=== PATIENT | male | born 1980 | race Caucasian/White ===

== ENCOUNTER 2023-03-11 00:32 | Outpatient (CLI) | payer BC, SELFPAY | END 2023-03-11 00:33 | disposition home or self-care (01) | LOC: AMB 03-14 06:26 | PROVIDERS: PCP Internal Medicine; Visit Provider Family Medicine | DX: M54.9 Dorsalgia, unspecified (principal) | CPT/HCPCS: A0425; A0427 ==

== ENCOUNTER 2023-03-11 00:57 | Emergency (ER) | payer BC, SELFPAY ==
[2023-03-11 01:03] VITALS: BP 127/83; PULSE 79; RESP 16; TEMP 37.3; O2SAT 100; BMI 23.1
--- NOTE | 2023-03-11 01:16 | ED.GENADULT ---
HPI - General Adult General Chief complaint: Unspecified Complaint, Adult Stated complaint: body aches Time Seen by Provider: 03/11/23 01:15 History of Present Illness HPI narrative: pt has colitis, gets remicade infusions q6wks . states around week 5 he starts to get joint pain and a another infusion resolves it. pt states next dose is next wednesday and has severe joint pain in shoulders, states pain in all other joints as well. struggles to lift arms up and neck pain. arms tingle now as well. 42-year-old man presenting to the emergency department with complaints of pain in numerous locations. He is having severe pain now in shoulders and other joints. Says when he woke could not even lift his arms as if paralyzed. Now just has a great deal of pain numerous areas. Hands tingle as well. No fever. No specific joint swelling. Does have a history of inflammatory bowel disease/colitis with history of Remicade infusions. Would anticipate another infusion about a week. Usually about week 5 starts to get pain like this. This is worse than usual. He is wondering if he is reacting to his medications. Related Data Home Medications Medication Instructions Recorded Confirmed balsalazide 750 mg capsule mg PO 11/06/22 03/29/23 infliximab 100 mg intravenous IV 11/06/22 03/29/23 solution (Remicade) Previous Rx's Medication Instructions Recorded gabapentin 300 mg capsule 300 mg PO BID PRN pain #30 caps 03/12/23 oxycodone-acetaminophen 5 mg-325 1 tab PO Q6H PRN pain #30 tabs 03/12/23 mg tablet (Percocet) clonazepam 1 mg tablet 1 mg PO QDAY PRN anxiety #10 tabs 03/29/23 prednisone 20 mg tablet 20 mg PO BID 5 days #10 tabs 03/29/23 Allergies Allergy/AdvReac Type Severity Reaction Status Date / Time venlafaxine Allergy Unknown Unknown Verified 03/26/23 10:41 Review of Systems Status of ROS: Reports: 6 or more systems reviewed and unremarkable except as noted in History and below [facility] Medical History Anxiety ?F41.9 - Anxiety disorder, unspecified (ICD-10) Inflammatory bowel disease ?K52.9 - Noninfective gastroenteritis and colitis, unspecified (ICD-10) Social History Smoking Status: Never smoker How often do you have a drink containing alcohol: never AUDIT-C Alcohol total score: 0 Non-prescribed substance use: denies use Little interest or pleasure in doing things: not at all Feeling down, depressed, or hopeless: not at all Exam Narrative: Exam Narrative: Is pleasant. Seems rather distressed. Mildly labored in breathing. Anxious. Skin is warm and dry. No discrete areas of erythema or evidence of cellulitis are noted. Subjective tingling appreciated to touch as noted in the hands and forearms. He is able to move all extremities though causes pain. Lungs are clear. Heart is in a regular rate and rhythm. Abdomen is flat soft. Const: Vital Signs, click to edit/add: Vital Signs - 24 hr 03/11/23 01:03 03/11/23 03:19 Temperature 99.2 F Pulse Rate [Left P ulse Oximeter] 79 77 Respiratory Rate 16 16 Blood Pressure [Ri ght Upper Arm] 127/83 125/81 Pulse Oximetry 100 99 Oxygen Delivery Me thod Room Air Room Air Documenting provider has reviewed patient's vital signs: yes Course Vital Signs Vital signs: Initial Vital Signs Temperature 99.2 F 03/11/23 01:03 Temperature Source Temporal Artery Scan 03/11/23 01:03 Pulse Rate 79 03/11/23 01:03 Respiratory Rate 16 03/11/23 01:03 Blood Pressure 127/83 03/11/23 01:03 Blood Pressure Mean 97 03/11/23 01:03 Blood Pressure Position Sitting 03/11/23 01:03 Pulse Oximetry 100 03/11/23 01:03 Oxygen Delivery Method Room Air 03/11/23 01:03 Vital Signs Temperature 99.2 F 03/11/23 01:03 Pulse Rate 79 03/11/23 01:03 Respiratory Rate 16 03/11/23 01:03 Blood Pressure 127/83 03/11/23 01:03 Pulse Oximetry 100 03/11/23 01:03 Oxygen Delivery Method Room Air 03/11/23 01:03 Temperature 99.2 F 03/11/23 01:03 Pulse Rate 77 03/11/23 03:19 Respiratory Rate 16 03/11/23 03:19 Blood Pressure 125/81 03/11/23 03:19 Pulse Oximetry 99 03/11/23 03:19 Oxygen Delivery Method Room Air 03/11/23 03:19 Medical Decision Making MDM Narrative Medical decision making narrative: Will attempt to treat pain. Certainly this could be breakthrough polyarthralgia. It sounds as though there is some exploration into joint involvement of inflammatory disease. This is not an isolated event. Just as noted worse than usual. It is possible there is an infectious etiology. Will check labs for red flags. I have not ordered an ESR as I do not anticipate this being a particularly long visit and perhaps further serology testing would be helpful in certainly not any time soon from this emergency department. Initiated on IV fluid, ketorolac in 2 tabs of [place]. This apparently did nothing to relieve pain. Further given a injection of Dilaudid. On reassessment still with minimal relief. I do think that anxiety is playing a role here and was given 0.5 mg of lorazepam. I would say overall improved though still complaining of pain. I do not feel there is really anything more to accomplish here in the emergency department. Labs are reassuring. CRP is normal. Medical Records Medical records reviewed: Yes I reviewed the patient's medical records Lab Data Lab results reviewed: Yes I reviewed the patient's lab results Labs: Lab Results 03/11/23 Range/Units 01:37 WBC 7.33 (4.50-11.00) K/uL RBC 4.63 (4.30-5.90) m/uL Hgb 14.1 (13.5-17.5) gm/dL Hct 41.4 (37.0-53.0) % MCV 89 (80-100) fL MCH 31 (26-34) pg MCHC 34 (32-36) gm/dL RDW Coeff of Larry 12.2 (11.5-15.5) % Plt Count 250 (140-440) K/uL Neut % (Auto) 62.2 (42.0-72.0) % Lymph % (Auto) 28.9 (20-44) % Harvey % (Auto) 6.5 (0.0-11.0) % Eos % (Auto) 2.0 (0.0-7.0) % Baso % (Auto) 0.3 (0.0-3.0) % Neut # (Auto) 4.55 (1.7-7.0) K/uL Lymph # (Auto) 2.12 (0.90-2.90) K/uL Harvey # (Auto) 0.50 (0.00-0.90) K/UL Eos # (Auto) 0.15 (0.00-0.50) K/uL Baso # (Auto) 0.02 (0.00-0.30) K/uL Abs Immat Gran (auto) 0.01 (0.00-0.30) K/uL Imm/Tot Granulo (auto) 0.1 % Sodium 140 (135-149) mmol/L Potassium 3.5 L (3.6-5.1) mmol/L Chloride 107 (96-114) mmol/L Carbon Dioxide 26 (20-32) mmol/L BUN 18 (5-24) mg/dL Creatinine 0.7 (0.5-1.5) mg/dL Estimated Creat Clear 151.47 Estimated GFR 119 ml/min Glucose 103 (60-115) mg/dL Calcium 8.8 (8.4-10.6) mg/dL C-Reactive Protein 0.8 (0.5-1.0) mg/dL Discharge Plan Discharge Clinical Impression: Myalgia, Polyarthralgia, Medication reaction Patient Disposition: Home w/ Parent or Adult Condition: Improved Additional Instructions: I do not know for sure that this is a reaction to your medication but certainly suspicious. I would not list this as an allergy necessarily. Please discuss with your barker peeler and manager of application development. Otherwise be seen for uncontrolled pain, fever, repeated vomiting. If needed Percocet from [facility]. Prescriptions: No Action balsalazide 750 mg capsule PO infliximab [Remicade] 100 mg recon soln IV prednisone 20 mg tablet 20 mg PO BID 5 Days Qty: 10 0RF clonazepam 1 mg tablet 1 mg PO QDAY PRN (Reason: anxiety) Qty: 10 0RF oxycodone-acetaminophen [Percocet] 5-325 mg tablet 1 tab PO Q6H PRN (Reason: pain) Qty: 30 0RF gabapentin 300 mg capsule 300 mg PO BID PRN (Reason: pain) Qty: 30 0RF Follow Up/Referrals: Ben Koch MD [Primary Care Provider] - Stand Alone Forms: [facility] Info Instructions
[2023-03-11] MEDS: KETOROLAC 30 MG/ML inj IVP (01:33)
[2023-03-11] MEDS: HYDROCODONE-ACETAMIN 5-325 MG 1 TAB 2 TAB PO (01:33)
[2023-03-11] MEDS: 0.9 % SODIUM CHLORIDE 1000 ml 1,000 ML IV (01:34)
[2023-03-11 01:46] LABS: Basophils Absolute Auto 0.02 K/uL (0.00-0.30); Basophils Percent Auto 0.3 % (0.0-3.0); Eosinophils Absolute Auto 0.15 K/uL (0.00-0.50); Hematocrit 41.4 % (37.0-53.0); Hemoglobin* 14.1 gm/dL (13.5-17.5); Immature Granulocytes Abs Auto 0.01 K/uL (0.00-0.30); Immature Granulocytes Pct Auto 0.1 %; Lymphocytes Absolute Auto 2.12 K/uL (0.90-2.90); Lymphocytes Percent Auto 28.9 % (20-44); Mean Corpuscular HGB Conc 34 gm/dL (32-36); Mean Corpuscular Hemoglobin 31 pg (26-34); Mean Corpuscular Volume 89 fL (80-100); Monocytes Percent Auto 6.5 % (0.0-11.0); Neutrophils Absolute Auto 4.55 K/uL (1.7-7.0); Neutrophils Percent Auto 62.2 % (42.0-72.0); Platelet Count* 250 K/uL (140-440); RDW Coefficient of Variation % 12.2 % (11.5-15.5); Red Blood Count 4.63 m/uL (4.30-5.90); White Blood Count* 7.33 K/uL (4.50-11.00)
[2023-03-11 01:51] LABS: Slide Review Reflex No
[2023-03-11 02:06] LABS: Blood Urea Nitrogen* 18 mg/dL (5-24); Calcium* 8.8 mg/dL (8.4-10.6); Carbon Dioxide* 26 mmol/L (20-32); Chloride* 107 mmol/L (96-114); Creatinine* 0.7 mg/dL (0.5-1.5); Est. Creatinine Clearance* 151.47; Estimated Glomerular Filt Rate 119 ml/min; Glucose* 103 mg/dL (60-115); Potassium* 3.5 mmol/L (3.6-5.1); Sodium* 140 mmol/L (135-149)
[2023-03-11 02:07] LABS: C Reactive Protein* 0.8 mg/dL (0.5-1.0)
[2023-03-11] MEDS: HYDROmorphone 0.5 mg/0.5 ml inj 1 MG IVP (02:36)
[2023-03-11] MEDS: LORazepam 2 MG/ML inj 0.5 MG IVP (03:05)
[2023-03-11 03:19] VITALS: BP 125/81; PULSE 77; RESP 16; O2SAT 99
== END 2023-03-11 04:18 | disposition home or self-care (01) ==
PROVIDERS: Emergency Provider Family Medicine; PCP Internal Medicine
DX: M79.10 Myalgia, unspecified site (principal); M25.50 Pain in unspecified joint; T50.905A Adverse effect of unspecified drugs, medicaments and biological substances, initial encounter
CPT/HCPCS: 36415; 80048; 85025; 86140; 96361; 96374; 96375; 99284; A9270; J1170; J1885; J2060; J7030

== ENCOUNTER 2023-03-29 15:30 | Outpatient (CLI) | payer BC, SELFPAY | END 2023-03-29 15:31 | disposition home or self-care (01) | PROVIDERS: PCP Internal Medicine; Visit Provider Internal Medicine | DX: K52.9 Noninfective gastroenteritis and colitis, unspecified (principal); N13.2 Hydronephrosis with renal and ureteral calculous obstruction; F41.9 Anxiety disorder, unspecified | CPT/HCPCS: 86039; 86140; 86812 ==

== ENCOUNTER 2024-04-05 15:22 | Outpatient (CLI) | payer BC, MEDICAID, SELFPAY ==
--- OUTSIDE RECORDS SUMMARY | 2024-04-06 09:15 | XMS_ITS | Encounter Summary ---
Author Organization [facility] Address [address] [place] [address]. [place] [address] Care Team Providers Care Reed Or Wind Instrument Repairer Name Role Phone Ben Koch MD Primary Care Provider Xavier Kaur MD Unavailable [phone] Savage Ma MD Unavailable [phone] Encounter Details Date Type Department Care Team (Late st Contact Info) Description 07/05/2021 Documentation Only INTERFACED REPORT Unknown, Provider Social History Tobacco Use Types Packs/Day Years Used Date Smoking Tobacco: Never Assessed Sex and Gender Information Value Date Recorded Sex Assigned at Not on file Gender Identity Not on file Sexual Orientation Not on file COVID-19 Exposure Response Date Recorded In the last month, have you been in contact with someone who was confirmed or suspected to have Coronavirus / COVID-19? No / Unsure 07/05/2021 10:34 AM SOLID [employer] FACILITY SUPERVISOR documented as of this encounter Plan of Treatment Not on file documented as of this encounter Visit Diagnoses Not on filedocumented in this encounter Care Teams Reed Or Wind Instrument Repairer Relationship Specialty Start Date End Date Ben Koch MD [facility] [address] [place] [address] PCP - General Emergency Medicine 02/17/21 Xavier Kaur MD [facility] [address] [facility] [place] [address] Gastroenterology 02/17/21 Savage Ma MD [id number] [place] [address] 02/17/21 documented as of this encounter
--- OUTSIDE RECORDS SUMMARY | 2024-04-06 09:15 | XMS_ITS | Clinical Summary ---
Author Organization [employer] [facility] Address [place], [place] [address] Care Team Providers Care Supervisor Receiving And Processing Name Role Phone Ben Koch MD Primary Care Provider Allergies Active Allergy Reactions Criticality Noted Date Comments Venlafaxine Analogues 12/13/2006 intolerance dizziness 10/25 Medications Medication Sig Dispensed Refills Start Date End Date Status acetaminophen (TYLENOL) 325 mg tablet Take 1-2 tablets by mouth every 4 hours if needed (For mild pain.). Max acetaminophen dose: 4000mg in 24 hrs. 0 03/25/2018 Active balsalazide (COLAZAL) 750 mg capsule Take by mouth 2 times daily. 3750 mg (5 caps) in the AM, 3000 mg (4 caps) in the PM Active inFLIXimab (Remicade) 100 mg injection Inject 5 mg/kg intravenous every 4 weeks. 07/12/2023 Active clonazePAM (KLONOPIN) 1 mg tablet Take 1 mg by mouth one time if needed for Anxiety. 07/02/2023 Active gabapentin (NEURONTIN) 300 mg capsule Take 300 mg by mouth 2 times daily if needed (pain). 03/12/2023 Active oxyCODONE-acetamin ophen (PERCOCET) 5-325 mg per tablet Take 1 Tablet by mouth every 4 hours if needed for Pain. 10/18/2020 Active predniSONE (DELTASONE) 20 mg tablet Take 20 mg by mouth two times daily with meals. PRN 05/03/2023 Active flecainide (TAMBOCOR) 50 mg tabletIndications: Paroxysmal atrial fibrillation (HC) Take 1 Tablet (50 mg) by mouth every 12 hours. 180 Tablet 2 12/07/2023 Active Active Problems Problem Noted Date Diagnosed Date Hydronephrosis with urinary obstruction due to ureteral calculus 10/24/2020 ADHD (attention deficit hype ractivity disorder), combined type 10/30/2011 Adjustment disorder with depressed mood 10/29/19 12 Seborrheic dermatitis 12/17/2010 PAROXYSMAL ATRIAL FIBRILLATION Overview: S/P ablation by dr toussaint 12/27 S/P repeat atrial fib ablation 09/14/2008 Anxiety state, unspecified Dysthymic disorder Allergic rhinitis, cause unspecified Immunizations Name Administration Dates Next Due Hepatitis B (Peds) 06/20/1999 Influenza, IIV3 (Age 6-35 mos) 09/15/2008 MMR 11/21/1993 Td (Age >=7 Years) 08/07/2005 Tdap 04/30/2015 Family History Medical History Relation Name Comments Cancer Maternal Grandfather Diabetes Mother Other Mother Crohn's disease Genetic Other mother, materna l GM and maternal GGM all with atrial fib; step-dad with ICD; Relation Name Status Comments Maternal Grandfather Mother Other Social History Tobacco Use Types Packs/Day Years Used Date Smoking Tobacco: Never Smokeless Tobacco: Never Tobacco Cessation:Counseling Given: Yes Comments:Never used Alcohol Use Standard Drinks/Week Comments No 0 (1 standard drink = 0.6 oz pur e alcohol) Social Connections Answer Date Recorded Frequency of Communication with Friends and Fami ly Not on file 08/02/2023 Sex and Gender Information Value Date Recorded Sex Assigned at Not on file Gender Identity Not on file Sexual Orientation Not on file Obstetrics History Last Filed Vital Signs Vital Sign Reading Time Taken Comments Blood Pressure 104/72 08/02/2023 9:32 AM INTEGRATION DIRECTOR Pulse 78 08/02/2023 9:32 AM INTEGRATION DIRECTOR Temperature 36.3 ??C (97.3 ??F) 11/19/2020 1:39 PM CD T Respiratory Rate 16 11/19/2020 1:39 PM CDT Oxygen Saturation 100% 08/02/2023 9:32 AM INTEGRATION DIRECTOR Inhaled Oxygen Concentration - - Weight 77.5 kg (170 lb 14.4 oz) 08/02/2023 9:32 AM INTEGRATION DIRECTOR Height 182.9 cm (6') 08/02/2023 9:32 AM INTEGRATION DIRECTOR Body Mass Index 23.18 08/02/2023 9:32 AM INTEGRATION DIRECTOR Plan of Treatment Health Maintenance Due Date Last Done Comments COVID-19 vaccine series (#1) 1986 Depression screening for age 12+ 1993 HIV for age 15-65 1996 Hepatitis C screening for ag e 18-79 1999 Lipids for age 35-44 2016 05/30/2003, 05/30/2003 Influenza for age 9-49 04/23/2024 BMI (ht and wt on same day) for age 18+ 08/02/2024 08/02/2023, 03/08/2018 Tetanus booster 04/30/2025 04/30/2015, 08/07/2005 Tdap Completed 04/30/2015 Pneumococcal series for age 6-64 Aged Out No longer eligible b ased on patient's age to complete this topic Medical Devices Implanted Type Area Supervisor Accounting Clerks Device Identifier Shelf Expiration Date Model / Serial / Lot Stent Uret [id number] Contour - [id number] Implanted:Qty: 1 on 10/24/2020 by Gricelda Henning MD at [facility] Left: [facility] [facility] [id number] / / [id number] Procedures Procedure Name Priority Date/Time Associated Diagnosis Comments CHOLESTEROL,TOTAL Routine 05/30/2003 10: 27 AM CDT from Last 3 Months or Most Recently Relevant to Health Maintenance Results * CHOLESTEROL,TOTAL (05/30/2003 10:27 AM CDT) CHOLESTEROL,TOT AL 162 <200 mg/dL 05/30/2003 10:2 7 AM CDT Narrative 02/19/2004 1:39 PM CDT Ordered by an unspecified provider. Other Clinical Staff CHEMISTRY from Last 3 Months or Most Recently Relevant to Health Maintenance Advance Directives * Full Code (Latest Code Status on File) Date Activated Date Inactivated Comments 11/19/2020 8:51 AM 11/19/2020 5:46 PM Question Answer Comments Code Status Discussion: Not Discussed * Full Code Date Activated Date Inactivated Comments 10/24/2020 11:56 AM 10/25/2020 3:36 PM Question Answer Comments Code Status Discussion: Discussed * Full Code Date Activated Date Inactivated Comments 03/25/2018 3:16 PM 03/26/2018 2:39 PM * Full Code Date Activated Date Inactivated Comments 10/28/2011 3:19 PM 10/30/2011 2:16 PM * Full Code Date Activated Date Inactivated Comments 09/14/2008 6:04 AM 09/15/2008 1:28 PM Care Teams Supervisor Receiving And Processing Relationship Specialty Start Date End Date Ben Koch MD [address] [place] [address] PCP - General Internal Medicine 03/09/18
--- OUTSIDE RECORDS SUMMARY | 2024-04-06 09:15 | XMS_ITS | Referral Summary ---
Author Organization [facility] Address [address] [place] [id number] Care Team Providers Care Twisting Department End Finder Name Role Phone Ben Koch MD Primary Care Provider Xavier Kaur MD Unavailable [phone] Savage Ma MD Unavailable [phone] Allergies No known active allergies Medications Medication Sig Dispensed Refills Start Date End Date Status gabapentin (NEURONTIN) 100 MG capsule Take 1-3 capsules (100-300 mg) by mouth 3 times daily as needed for neuropathic pain Begin with 100mg po up three times daily, can titrate up by 100mg per dose if no response after three days of dosing up to 300mg po three times daily as needed 90 capsule 07/05/2021 Active Social History Tobacco Use Types Packs/Day Years Used Date Smoking Tobacco: Never Assessed Adolescent Education Answer Date Record ed Getting School Help Needed Not on file 05/15 Sex and Gender Information Value Date Recorded Sex Assigned at Not on file Gender Identity Not on file Sexual Orientation Not on file Last Filed Vital Signs Vital Sign Reading Time Taken Comments Blood Pressure 127/86 07/05/2021 1:10 PM SUPERVISOR DITCHING Pulse 66 07/05/2021 11:40 AM SUPERVISOR DITCHING Temperature 36.1 ??C (97 ??F) 07/05/2021 10:45 AM SUPERVISOR DITCHING Respiratory Rate 18 07/05/2021 10:45 AM SUPERVISOR DITCHING Oxygen Saturation 98% 07/05/2021 1:40 PM SUPERVISOR DITCHING Inhaled Oxygen Concentration - - Weight - - Height - - Body Mass Index - - Plan of Treatment Not on file Procedures Procedure Name Priority Date/Time Associated Diagnosis Comments BASIC METABOLIC PANEL STAT 07/05/2021 11:33 AM SUPERVISOR DITCHING from Last 3 Months or Most Recently Relevant to Health Maintenance Results * Basic metabolic panel (07/05/2021 11:33 AM SUPERVISOR DITCHING) Sodium 139 133 - 144 mmol/L 07/05/2021 12:14 PM [facility] Potassium 4.4 3.4 - 5.3 mmol/L 07/05/2021 12:14 PM [facility] Comment:Specimen slightly he molyzed, potassium may be falsely elevated. Chloride 108 94 - 109 mmol/L 07/05/2021 12:14 PM [facility] Carbon Dioxide (CO2) 27 20 - 32 mmol/L 07/05/2021 12:14 PM [facility] Anion Gap 4 3 - 14 mmol/L 07/05/2021 12:14 PM [facility] Urea Nitrogen 13 7 - 30 mg/dL 07/05/2021 12:14 PM [facility] Creatinine 0.89 0.66 - 1.25 mg/dL 07/05/2021 12:14 PM [facility] Calcium 8.7 8.5 - 10.1 mg/dL 07/05/2021 12:14 PM [facility] Glucose 97 70 - 99 mg/dL 07/05/2021 12:14 PM [facility] GFR Estimate >90 >60 mL/min/1.7 3m2 07/05/2021 12:14 PM [facility] Comment:As of March 02, 2021, eGFR is calculated by the CKD-EPI creatinine equation, without race adjustment. eGFR can be influenced by muscle mass, exercise, and diet. The reported eGFR is an estimation only and is only applicable if the renal function is stable. Blood STRUCTURE OF RIGHT UPPER LIMB / Unknown Venipuncture / Unknown 07/05/2021 11:33 AM SUPERVISOR DITCHING 07/05/2021 11:52 AM SUPERVISOR DITCHING Kenzie Mccracken MD LAB - BLOOD KOKI DOMÍNGUEZ [facility] Organization Address City/State/ZIP Co de Phone Number LABORATORY [facility] [address] Lab (1st floor, no room number) [place] [address], [facility] [phone] from Last 3 Months or Most Recently Relevant to Health Maintenance Care Teams Twisting Department End Finder Relationship Specialty Start Date End Date Ben Koch MD [facility] [address] [place] [address] PCP - General Emergency Medicine 02/17/21 Xavier Kaur MD [facility] [address] [facility] [place] [address] Gastroenterology 02/17/21 Savage Ma MD [address] [facility] [address] [place] [address] 02/17/21
--- OUTSIDE RECORDS SUMMARY | 2024-04-06 09:15 | XMS_ITS | Clinical Summary ---
Author Organization [facility] Address [address] [place] [address] Care Team Providers Care Diabetes Manager Name Role Phone Needs Pcp, Assignment Primary Care Provider Source Comments You are receiving this document as you are listed as the primary care provider,follow-up provider, or the patient has been referred to you for consultation.This is in compliance with the Medicare andMedicaid EHR Incentive Program,which states Providers who transition their patient to another setting of careor provider of care or refers their patient to another provider of care shouldprovide summary care record for each transition of care or referral. [facility] Allergies Active Allergy Reactions Criticality Noted Date Comments Venlafaxine Rash 07/06/2023 Medications Medication Sig Dispensed Refills Start Date End Date Status balsalazide (COLAZAL) 750 MG capsule Take 9 Capsules (6,750 mg) by mouth daily. Pt takes 5 capsules Qmorning and 4 capsules QHS Active clonazePAM (KLONOPIN) 1 MG tablet Take 1 Tablet (1 mg) by mouth daily as needed. 07/02/2023 Active gabapentin (NEURONTIN) 300 MG capsule Take 1 Capsule (300 mg) by mouth two times daily as needed. 03/12/2023 Active inFLIXimab (REMICADE) injection Active Active Problems Problem Noted Date Diagnosed Date Afib 07/06/2023 Overview (07/06/2023): S/P ablation by dr toussaint 12/27 S/P repeat atrial fib ablation 09/14/2008 Anxiety state 07/06/2023 Allergic rhinitis 07/06/2023 Dysthymic disorder 07/06/2023 Insomnia 07/06/2023 Joint pain 07/06/2023 Ulcerative colitis 07/06/2023 Inflammatory arthritis, osteoarthritis 3 Hydronephrosis with urinary obstruction due to ureteral calculus 10/24/2020 ADHD (attention deficit hype ractivity disorder), combined type 10/30/2011 Adjustment disorder with depressed mood 10/29/19 12 Seborrheic dermatitis 12/17/2010 Social History Tobacco Use Types Packs/Day Years Used Date Smoking Tobacco: Never Passive Smoke Exposure: Past Smokeless Tobacco: Never Tobacco Cessation:Counseling Given: Not Answered Sex and Gender Information Value Date Recorded Sex Assigned at Male 03/10/2023 1:06 PM CDT Gender Identity Male 03/10/2023 1:06 PM CDT Sexual Orientation Straight 03/10/2023 1: 06 PM CDT Last Filed Vital Signs Vital Sign Reading Time Taken Comments Blood Pressure 102/68 07/06/2023 11:05 AM CARE CLINICIAN Pulse 71 07/06/2023 11:05 AM CARE CLINICIAN Temperature - - Respiratory Rate - - Oxygen Saturation - - Inhaled Oxygen Concentration - - Weight 78.7 kg (173 lb 6.4 oz) 07/06/2023 11:05 AM CARE CLINICIAN Height 182.9 cm (6') 07/06/2023 11:05 AM CARE CLINICIAN Body Mass Index 23.52 07/06/2023 11:05 AM CARE CLINICIAN Plan of Treatment Health Maintenance Due Date Last Done Comments HIV Screening (Preventive Services) 1997 Adult Preventive Visit 1999 HepB (1) 2000 Cholesterol 2016 COVID-19 Vaccine ( - 2022-2 4 season) 2023 Influenza (#1) 2024 07/17/2020, 06/02/2019, 09/15/2008 DTaP/Tdap/Td (2 - Tdap) 04/30/2025 04/30/20 15, 08/07/2005 Zoster/Shingles (1 of 2) 2031 HepA Aged Out 08/04/2019, 06/02/2019 No longer eligible based on patient's age to complete this topic Pneumococcal Aged Out 08/04/2019, 04/11/2019 No longer eligible based on patient's age to complete this topic Hep C Screening (Preventive Services) Completed 07/06/2023 HPV Vaccine Aged Out No longer eligi ble based on patient's age to complete this topic Hib Aged Out No longer eligi ble based on patient's age to complete this topic IPV (Polio) Aged Out No longer eligi ble based on patient's age to complete this topic MCV4 Aged Out No longer eligi ble based on patient's age to complete this topic Procedures Procedure Name Priority Date/Time Associated Diagnosis Comments HEPATITIS C ANTIBODY, WITH REFLEX Routine 07/06/2023 11:58 AM CARE CLINICIAN Other ulcerative colitis without complication (HRC) High risk medication use Inflammatory arthritis from Last 3 Months or Most Recently Relevant to Health Maintenance Results * Hepatitis C Antibody, with Reflex (07/06/2023 11:58 AM CARE CLINICIAN) Hepatitis C Antibody Negative (Non Reactive) Negative (Non Reactive) 07/06/2023 6:16 PM CARE CLINICIAN [facility] Comment:Antibodies to HCV no t detected. Does not exclude the possiblity of exposure to HCV. Blood Venipuncture / Unknown 07/06/2023 11:58 AM CARE CLINICIAN 07/06/2023 11:58 AM CARE CLINICIAN Luke W Desilet DO LAB_1 [facility] [address] [place] [address], [facility] from Last 3 Months or Most Recently Relevant to Health Maintenance Care Teams Diabetes Manager Relationship Specialty Start Date End Date Needs Pcp, [place] [address] PCP - General 07/06/23
--- OUTSIDE RECORDS SUMMARY | 2024-04-06 09:15 | XMS_ITS | Clinical Summary ---
Author Organization [place] Address [address] [place] [address] Care Team Providers Care Radiology Receptionist Name Role Phone Ben Koch MD Primary Care Provider Xavier Kaur MD Unavailable [phone] Savage Ma MD Unavailable [phone] Allergies No known active allergies Medications Medication [...] Comments Blood Pressure 127/86 07/05/2021 1:10 PM JUMPBASTING ARMHOLE BASTER Pulse 66 07/05/2021 11:40 AM JUMPBASTING ARMHOLE BASTER Temperature 36.1 ??C (97 ??F) 07/05/2021 10:45 AM JUMPBASTING ARMHOLE BASTER Respiratory Rate 18 07/05/2021 10:45 AM JUMPBASTING ARMHOLE BASTER Oxygen Saturation 98% 07/05/2021 1:40 PM JUMPBASTING ARMHOLE BASTER Inhaled Oxygen Concentration - - Weight - - Height - - Body Mass Index - - Plan of Treatment Health Maintenance Due Date Last Done Comments ADVANCE CARE PLANNING 1981 ANNUAL REVIEW OF HM ORDERS 1981 YEARLY PREVENTIVE VISIT 1981 HIV SCREENING 1996 HEPATITIS C SCREENING 1999 HEPATITIS B IMMUNIZATION (3 of 3 - Hep B Twinrix 3-dose series) 01/03/2020 08/04/2019, 06/02/2019 LIPID 2021 COVID-19 Vaccine (1 - 2022-2 4 season) 2023 PHQ-2 (once per calendar year) 2023 INFLUENZA VACCINE (#1) 2024 0, 06/02/2019 GLUCOSE 07/05/2024 07/05/2021 DTAP/TDAP/TD IMMUNIZATION (3 - Td or Tdap) 05/28/2025 05/28/2015, 04/30/2015 Pneumococcal Vaccine: Pediatrics (0 to 5 Years) and At-Risk Patients (6 to 64 Years) Aged Out 08/04/2019, 04/11/2019 No longer eligible based on patient's age to complete this topic HPV IMMUNIZATION Aged Out No longer e ligible based on patient's age to complete this topic IPV IMMUNIZATION Aged Out No longer e ligible based on patient's age to complete this topic MENINGITIS IMMUNIZATION Aged Out No l onger eligible based on patient's age to complete this topic RSV MONOCLONAL ANTIBODY Aged Out No l onger eligible based on patient's age to complete this topic Procedures Procedure Name Priority Date/Time Associated Diagnosis Comments BASIC METABOLIC PANEL STAT 07/05/2021 11:33 AM JUMPBASTING ARMHOLE BASTER from Last 3 Months or Most Recently Relevant to Health Maintenance Results * Basic metabolic panel (07/05/2021 11:33 AM JUMPBASTING ARMHOLE BASTER) Sodium 139 133 - 144 mmol/L 07/05/2021 12:14 PM JUMPBASTING ARMHOLE BASTER [facility] Potassium 4.4 3.4 - 5.3 mmol/L 07/05/2021 12:14 PM JUMPBASTING ARMHOLE BASTER [facility] Comment:Specimen slightly he molyzed, potassium may be falsely elevated. Chloride 108 94 - 109 mmol/L 07/05/2021 12:14 PM JUMPBASTING ARMHOLE BASTER [facility] Carbon Dioxide (CO2) 27 20 - 32 mmol/L 07/05/2021 12:14 PM JUMPBASTING ARMHOLE BASTER [facility] Anion Gap 4 3 - 14 mmol/L 07/05/2021 12:14 PM JUMPBASTING ARMHOLE BASTER [facility] Urea Nitrogen 13 7 - 30 mg/dL 07/05/2021 12:14 PM [facility] Creatinine 0.89 0.66 - 1.25 mg/dL 07/05/2021 12:14 PM [facility] Calcium 8.7 8.5 - 10.1 mg/dL 07/05/2021 12:14 PM [facility] Glucose 97 70 - 99 mg/dL 07/05/2021 12:14 PM [facility] GFR Estimate >90 >60 mL/min/1.7 3m2 07/05/2021 12:14 PM [facility] Comment:As of March 02, 2021, eGFR is calculated by the CKD-EPI creatinine equation, without race adjustment. eGFR can be influenced by muscle mass, exercise, and diet. The reported eGFR is an estimation only and is only applicable if the renal function is stable. Blood STRUCTURE OF RIGHT UPPER LIMB / Unknown Venipuncture / Unknown 07/05/2021 11:33 AM JUMPBASTING ARMHOLE BASTER 07/05/2021 11:52 AM JUMPBASTING ARMHOLE BASTER Kenzie Mccracken MD LAB - BLOOD KOKI DOMÍNGUEZ [facility] Organization Address City/State/ZIP Co de Phone Number LABORATORY [facility] Lab [address] [facility] Lab (1st floor, no room number) [place] [address], [facility] [phone] from Last 3 Months or Most Recently Relevant to Health Maintenance Care Teams Radiology Receptionist Relationship Specialty Start Date End Date Ben Koch MD [facility] [address] [place], [place] [id number] PCP - General Emergency Medicine 02/17/21 Xavier Kaur MD [place] [facility] [address] [facility] [place] [address] Gastroenterology 02/17/21 Savage Ma MD [facility] [address] [address] 02/17/21
== END 2024-04-05 15:23 | disposition home or self-care (01) ==
LOC: NFLDREF 04-06 09:13
PROVIDERS: PCP Internal Medicine; Referring Provider Internal Medicine; Visit Provider Internal Medicine
DX: R30.0 Dysuria (principal); N39.0 Urinary tract infection, site not specified
CPT/HCPCS: 87086

== ENCOUNTER 2024-04-19 08:00 | Outpatient (CLI) | payer BC, SELFPAY ==
--- OUTSIDE RECORDS SUMMARY | 2024-04-20 11:46 | XMS_ITS | Referral Summary ---
Author Organization [place] Address [address] [place] [address] Care Team Providers Care Stroboscope Operator Name Role Phone Ben Koch MD Primary Care Provider Xavier Kaur MD Unavailable [phone] Savage Ma MD Unavailable [phone] Allergies No known active allergies Medications Medication [...] Comments Blood Pressure 127/86 07/05/2021 1:10 PM CANE PUSHER Pulse 66 07/05/2021 11:40 AM CANE PUSHER Temperature 36.1 ??C (97 ??F) 07/05/2021 10:45 AM CANE PUSHER Respiratory Rate 18 07/05/2021 10:45 AM CANE PUSHER Oxygen Saturation 98% 07/05/2021 1:40 PM CANE PUSHER Inhaled Oxygen Concentration - - Weight - - Height - - Body Mass Index - - Plan of Treatment Not on file Procedures Procedure Name Priority Date/Time Associated Diagnosis Comments BASIC METABOLIC PANEL STAT 07/05/2021 11:33 AM CANE PUSHER from Last 3 Months or Most Recently Relevant to Health Maintenance Results * Basic metabolic panel (07/05/2021 11:33 AM CANE PUSHER) Sodium 139 133 - 144 mmol/L 07/05/2021 12:14 PM [facility] Potassium 4.4 3.4 - 5.3 mmol/L 07/05/2021 12:14 PM [facility] Comment:Specimen slightly he molyzed, potassium may be falsely elevated. Chloride 108 94 - 109 mmol/L 07/05/2021 12:14 PM [facility] Carbon Dioxide (CO2) 27 20 - 32 mmol/L 07/05/2021 12:14 PM [facility] Anion Gap 4 3 - 14 mmol/L 07/05/2021 12:14 PM [facility] Urea Nitrogen 13 7 - 30 mg/dL 07/05/2021 12:14 PM [facility] Creatinine 0.89 0.66 - 1.25 mg/dL 07/05/2021 12:14 PM [facility] Calcium 8.7 8.5 - 10.1 mg/dL 07/05/2021 12:14 PM [facility] Glucose 97 70 - 99 mg/dL 07/05/2021 12:14 PM [facility] GFR Estimate >90 >60 mL/min/1.7 3m2 07/05/2021 12:14 PM [facility] Comment:As of March 02, 2021, eGFR is calculated by the CKD-EPI creatinine equation, without race adjustment. eGFR can be influenced by muscle mass, exercise, and diet. The reported eGFR is an estimation only and is only applicable if the renal function is stable. Blood STRUCTURE OF RIGHT UPPER LIMB / Unknown Venipuncture / Unknown 07/05/2021 11:33 AM CANE PUSHER 07/05/2021 11:52 AM CANE PUSHER Kenzie Mccracken MD LAB - BLOOD KOKI DOMÍNGUEZ [facility] Organization Address City/State/ZIP Co de Phone Number LABORATORY [facility] Acute Care Lab [address] Lab (1st floor, no room number) [place] [address], [facility] [phone] from Last 3 Months or Most Recently Relevant to Health Maintenance Care Teams Stroboscope Operator Relationship Specialty Start Date End Date Ben Koch MD [facility] [address] [place] [address] PCP - General Emergency Medicine 02/17/21 Xavier Kaur MD [place] [facility] [address] [facility] [place] [address] Gastroenterology 02/17/21 Savage Ma MD [address] [facility] [address] [place] [address] 02/17/21
--- OUTSIDE RECORDS SUMMARY | 2024-04-20 11:46 | XMS_ITS | Clinical Summary ---
Author Organization [employer] Address [place], [place] [address] Care Team Providers Care Housing Grant Analyst Name Role Phone Ben Koch MD Primary [...] Comments Blood Pressure 104/72 08/02/2023 9:32 AM TUFTING SUPERVISOR Pulse 78 08/02/2023 9:32 AM TUFTING SUPERVISOR Temperature 36.3 ??C (97.3 ??F) 11/19/2020 1:39 PM CD T Respiratory Rate 16 11/19/2020 1:39 PM CDT Oxygen Saturation 100% 08/02/2023 9:32 AM TUFTING SUPERVISOR Inhaled Oxygen Concentration - - Weight 77.5 kg (170 lb 14.4 oz) 08/02/2023 9:32 AM TUFTING SUPERVISOR Height 182.9 cm (6') 08/02/2023 9:32 AM TUFTING SUPERVISOR Body Mass Index 23.18 08/02/2023 9:32 AM TUFTING SUPERVISOR Plan of Treatment Health Maintenance Due Date [...] this topic Medical Devices Implanted Type Area Carbon Accountant Device Identifier Shelf Expiration Date Model / Serial / Lot Stent Uret [id number] Contour - [id number] Implanted:Qty: 1 on 10/24/2020 by Gricelda Henning MD at [facility] Left: [facility] [facility] [id number] / / [id number] Procedures Procedure Name Priority Date/Time Associated Diagnosis [...] 6:04 AM 09/15/2008 1:28 PM Care Teams Housing Grant Analyst Relationship Specialty Start Date End Date Ben Koch MD [address] [place] [address] PCP - General Internal Medicine 03/09/18
--- OUTSIDE RECORDS SUMMARY | 2024-04-20 11:46 | XMS_ITS | Clinical Summary ---
Author Organization [facility] Address [address] [place] [address] Care Team Providers Care Donor Services Manager Name Role Phone Needs Pcp, Assignment [...] for each transition of care or referral. [employer] Allergies Active Allergy Reactions Criticality Noted Date [...] Comments Blood Pressure 102/68 07/06/2023 11:05 AM LANDSCAPE ARTIST Pulse 71 07/06/2023 11:05 AM LANDSCAPE ARTIST Temperature - - Respiratory Rate - - Oxygen Saturation - - Inhaled Oxygen Concentration - - Weight 78.7 kg (173 lb 6.4 oz) 07/06/2023 11:05 AM LANDSCAPE ARTIST Height 182.9 cm (6') 07/06/2023 11:05 AM LANDSCAPE ARTIST Body Mass Index 23.52 07/06/2023 11:05 AM LANDSCAPE ARTIST Plan of Treatment Health Maintenance Due Date [...] ANTIBODY, WITH REFLEX Routine 07/06/2023 11:58 AM LANDSCAPE ARTIST Other ulcerative colitis without complication (HRC) High risk medication use Inflammatory arthritis from Last 3 Months or Most Recently Relevant to Health Maintenance Results * Hepatitis C Antibody, with Reflex (07/06/2023 11:58 AM LANDSCAPE ARTIST) Hepatitis C Antibody Negative (Non Reactive) Negative (Non Reactive) 07/06/2023 6:16 PM LANDSCAPE ARTIST [facility] Comment:Antibodies to HCV no t detected. Does not exclude the possiblity of exposure to HCV. Blood Venipuncture / Unknown 07/06/2023 11:58 AM LANDSCAPE ARTIST 07/06/2023 11:58 AM LANDSCAPE ARTIST Luke W Desilet DO LAB_1 [facility] [address] [place] [address], [facility] from Last 3 Months or Most Recently Relevant to Health Maintenance Care Teams Donor Services Manager Relationship Specialty Start Date End Date Needs Pcp, [place] [address] PCP - General 07/06/23
--- OUTSIDE RECORDS SUMMARY | 2024-04-20 11:46 | XMS_ITS | Clinical Summary ---
Author Organization [place] Address [address] [place] [address] Care Team Providers Care Core Checker Name Role Phone Ben Koch MD Primary Care Provider Xavier Kaur MD Unavailable [phone] Savage Ma MD Unavailable [phone] Allergies No known active allergies Medications Medication [...] Comments Blood Pressure 127/86 07/05/2021 1:10 PM LINKER UP Pulse 66 07/05/2021 11:40 AM LINKER UP Temperature 36.1 ??C (97 ??F) 07/05/2021 10:45 AM LINKER UP Respiratory Rate 18 07/05/2021 10:45 AM LINKER UP Oxygen Saturation 98% 07/05/2021 1:40 PM LINKER UP Inhaled Oxygen Concentration - - Weight - [...] BASIC METABOLIC PANEL STAT 07/05/2021 11:33 AM LINKER UP from Last 3 Months or Most Recently Relevant to Health Maintenance Results * Basic metabolic panel (07/05/2021 11:33 AM LINKER UP) Sodium 139 133 - 144 mmol/L 07/05/2021 12:14 PM LINKER UP [facility] Potassium 4.4 3.4 - 5.3 mmol/L 07/05/2021 12:14 PM LINKER UP [facility] Comment:Specimen slightly he molyzed, potassium may be falsely elevated. Chloride 108 94 - 109 mmol/L 07/05/2021 12:14 PM LINKER UP [facility] Carbon Dioxide (CO2) 27 20 - 32 mmol/L 07/05/2021 12:14 PM LINKER UP [facility] Anion Gap 4 3 - 14 mmol/L 07/05/2021 12:14 PM LINKER UP [facility] Urea Nitrogen 13 7 - 30 mg/dL 07/05/2021 12:14 PM LINK[facility] UP [facility] Creatinine 0.89 0.66 - 1.25 mg/dL 07/05/2021 12:14 PM [facility] Calcium 8.7 8.5 - 10.1 mg/dL 07/05/2021 12:14 PM [facility] Glucose 97 70 - 99 mg/dL 07/05/2021 12:14 PM LINKER UP [facility] GFR Estimate >90 >60 mL/min/1.7 3m2 07/05/2021 12:14 PM [facility] Comment:As of March 02, 2021, eGFR is calculated by the CKD-EPI creatinine equation, without race adjustment. eGFR can be influenced by muscle mass, exercise, and diet. The reported eGFR is an estimation only and is only applicable if the renal function is stable. Blood STRUCTURE OF RIGHT UPPER LIMB / Unknown Venipuncture / Unknown 07/05/2021 11:33 AM LINKER UP 07/05/2021 11:52 AM LINKER UP Kenzie Mccracken MD [facility] Organization Address City/State/ZIP Co de Phone Number LABORATORY [facility] Acute Care Lab [address] [facility] Lab (1st floor, no room number) [place] [address], [facility] [phone] from Last 3 Months or Most Recently Relevant to Health Maintenance Care Teams Core Checker Relationship Specialty Start Date End Date Ben Koch MD [facility] [address] [place], [place] [id number] PCP - General Emergency Medicine 02/17/21 Xavier Kaur MD [place] [facility] [address] [facility] [place] [address] Gastroenterology 02/17/21 Savage Ma MD [address] [id number] [place] [address] 02/17/21
--- OUTSIDE RECORDS SUMMARY | 2024-04-20 11:46 | XMS_ITS | Encounter Summary ---
Author Organization [place] Address [address] [place] [address]. [place] [address] Care Team Providers Care Professor Of Criminal Justice Name Role Phone Ben Koch MD Primary Care Provider Xavier Kaur MD Unavailable [phone] Savage Ma MD Unavailable [phone] Encounter Details Date Type Department Care Team [...] COVID-19? No / Unsure 07/05/2021 10:34 AM BRAZING FURNACE FEEDER documented as of this encounter Plan of Treatment Not on file documented as of this encounter Visit Diagnoses Not on filedocumented in this encounter Care Teams Professor Of Criminal Justice Relationship Specialty Start Date End Date Ben Koch MD [facility] [address] [place] [address] PCP - General Emergency Medicine 02/17/21 Xavier Kaur MD [place] [facility] [address] [facility] [place] [address] Gastroenterology 02/17/21 Savage Ma MD [id number] [place] [address] 02/17/21 documented as of this encounter
== END 2024-04-19 08:01 | disposition home or self-care (01) ==
LOC: NFLDREF 04-20 11:43
PROVIDERS: PCP Internal Medicine; Referring Provider Internal Medicine; Visit Provider Internal Medicine
DX: N39.0 Urinary tract infection, site not specified (principal)
CPT/HCPCS: 87086

== ENCOUNTER 2024-04-20 19:26 | Emergency (ER) | payer BC, SELFPAY ==
[2024-04-20 19:41] VITALS: BP 139/75; PULSE 71; RESP 16; TEMP 36.8; O2SAT 97
--- NOTE | 2024-04-20 20:09 | CRLHL7_ITS ---
For Patients: As a result of the Century Cures Act, medical imaging exams and procedure reports are released immediately into your electronic medical record. You may view this report before your referring provider. If you have questions, please contact your health care provider. Indication: Left abdominal/flank pain, history of kidney stones Technique: Noncontrast CT through the abdomen and pelvis with multiplanar reformats. Comparison: CT abdomen pelvis performed 10/24/2020 Findings: Lower chest: No acute abnormality appreciated. Hepatobiliary: No significant parenchymal abnormality is appreciated. Spleen: Unremarkable. Pancreas: No acute abnormality appreciated. Adrenal glands: No acute abnormality appreciated. Kidneys: Mild left hydronephrosis with a proximal ureteral stone measuring 5 millimeters. Right kidney is unremarkable. Bowel: No obstruction. No focal perienteric or pericolonic stranding is appreciated. The appendix is visualized and appears unremarkable. Vascular: Poorly evaluated on this noncontrast examination. Lymph nodes: No gross lymphadenopathy. Peritoneum: No free air. No free fluid. : No acute abnormality appreciated. Soft tissues: No acute abnormality appreciated. Fat containing umbilical hernia. Bones: No acute fracture. No lytic or blastic lesion. L4 pars defects with mild L4-5 anterolisthesis. Partial sacralization of L5. Impression: Obstructing left proximal ureteral stone measuring 5 millimeters with mild hydronephrosis. Please note that all CT scans at this facility use dose modulation, iterative reconstruction, and/or weight-based dosing when appropriate to reduce radiation dose to as low as reasonably achievable. Dictated by Primo Lozano MD @ 04/20/2024 10:00:01 PM (Electronically Signed)
--- NOTE | 2024-04-20 20:11 | ED_ITS ---
HPI - Abdominal Pain General Chief Complaint: Abdominal Pain Stated Complaint: Abdom pain thru to back, vomit Time Seen by Provider: 04/20/24 19:38 History of Present Illness HPI narrative: This patient is a 43-year-old male who comes in with left-sided abdominal and flank pain this started about 6 hours prior to arrival. He has a history of kidney stones and symptoms are similar. He arrives with normal vital signs. Related Data Home Medications ?Medication ?Instructions ?Recorded ?Confirmed balsalazide 750 mg capsule mg PO 11/06/22 04/19/24 infliximab 100 mg intravenous IV 11/06/22 04/19/24 solution (Remicade) flecainide 50 mg tablet 50 mg PO Q12H 12/27/23 04/19/24 Previous Rx's ?Medication ?Instructions ?Recorded gabapentin 300 mg capsule 300 mg PO BID PRN pain #30 caps 03/12/23 oxycodone-acetaminophen 5 mg-325 1 tab PO Q6H PRN pain #30 tabs 03/12/23 mg tablet (Percocet) prednisone 20 mg tablet 20 mg PO BID Arthritis #60 tabs 05/03/23 clonazepam 1 mg tablet 1 mg PO QDAY PRN anxiety #20 tabs 12/27/23 sertraline 100 mg tablet (Zoloft) 100 mg PO QDAY #90 tabs 01/18/24 sulfamethoxazole 800 1 tab PO BID #14 tabs 04/05/24 mg-trimethoprim 160 mg tablet (Bactrim DS) tamsulosin 0.4 mg capsule (Flomax) 0.4 mg PO DAILY #10 caps 04/20/24 Allergies Allergy/AdvReac Type Severity Reaction Status Date / Time venlafaxine Allergy Unknown Unknown Verified 04/19/24 07:58 Review of Systems Status of ROS Reports: 10 or more systems reviewed and unremarkable except as noted in History and below Narrative Constitutional: No fevers, no weight gain or loss. Eyes: No discharge. No vision changes. HENT: No congestion, no sore throat, no ear pain. Cardiovascular: No chest pain, no palpitations. Respiratory: No shortness of breath, no wheezes, no cough. Gastrointestinal: Left-sided flank and abdominal pain with associated nausea and vomiting. Genitourinary: No dysuria, no hematuria. Musculoskeletal: Normal range of motion. Skin: No rashes, no pruritis. Neurological: No dizziness, weakness, sensory change, speech change. Endo/Heme/Allergies: No bruising or bleeding. No polydipsia. Pysch: no suicidality, no anxiety, no insomnia. All other systems reviewed and are negative. [facility] Medical History (Updated 04/20/24 @ 22:15 by Joshua Rizvi MD) UTI (urinary tract infection) ?N39.0 - Urinary tract infection, site not specified (ICD-10) Anxiety ?F41.9 - Anxiety disorder, unspecified (ICD-10) Inflammatory bowel disease ?K52.9 - Noninfective gastroenteritis and colitis, unspecified (ICD-10) Social History Smoking Status: Never smoker Do you use any of these nicotine containing products: None How often do you have a drink containing alcohol: never How often do you have six or more drinks on one occasion: Never AUDIT-C Alcohol total score: 0 Non-prescribed substance use: denies use Little interest or pleasure in doing things: not at all Feeling down, depressed, or hopeless: not at all service: No Exam Narrative: Exam Narrative: Constitutional: Well-developed, well-nourished. HEENT: Normocephalic, atraumatic. Neck: Normal range of motion. Nontender. Supple. Heart: Regular. No murmurs. Normal rate. Intact distal pulses. Lungs: Clear to auscultation. No chest discomfort. No wheezes, rhonchi, or rales. Abdomen: Normal bowel sounds. Diffuse pain in the left abdomen and left flank. No rebound tenderness. Genitalia: Deferred. Back: No midline tenderness. Normal range of motion. Extremities: Normal range of motion. No injury. Skin: Intact. No rash. Warm. No erythema or pallor. Neurologic: No altered sensation. No weakness. Alert and oriented. Psychiatric: No suicidality. No anxiety or depression. No insomnia. Nursing notes and vitals signs are reviewed. Const: Vital Signs, click to edit/add: Vital Signs - 24 hr 04/20/24 19:41 Temperature 98.3 F Pulse Rate [Pulse Oximeter] 71 Respiratory Rate 16 Blood Pressure [Ri ght Upper Arm] 139/75 Pulse Oximetry 97 Oxygen Delivery Me thod Room Air Course Vital Signs Vital signs: Initial Vital Signs Temperature 98.3 F 04/20/24 19:41 Temperature Source Temporal Artery Scan 04/20/24 19:41 Pulse Rate 71 04/20/24 19:41 Respiratory Rate 16 04/20/24 19:41 Blood Pressure 139/75 04/20/24 19:41 Blood Pressure Mean 96 04/20/24 19:41 Blood Pressure Position Sitting 04/20/24 19:41 Pulse Oximetry 97 04/20/24 19:41 Oxygen Delivery Method Room Air 04/20/24 19:41 Vital Signs Temperature 98.3 F 04/20/24 19:41 Pulse Rate 71 04/20/24 19:41 Respiratory Rate 16 04/20/24 19:41 Blood Pressure 139/75 04/20/24 19:41 Pulse Oximetry 97 04/20/24 19:41 Oxygen Delivery Method Room Air 04/20/24 19:41 Temperature 98.3 F 04/20/24 19:41 Pulse Rate 71 04/20/24 19:41 Respiratory Rate 16 04/20/24 19:41 Blood Pressure 139/75 04/20/24 19:41 Pulse Oximetry 97 04/20/24 19:41 Oxygen Delivery Method Room Air 04/20/24 19:41 Medications Administered Medications: Discontinued Medications Generic Name Dose Route Start Last Admin Trade Name Robin PRN Reason Stop Dose Admin Hydromorphone HCl 0.5 mg 04/20/24 20:08 04/20/24 20:29 Hydromorphone 0.5 Mg/0.5 Ml Inj IVP 04/20/24 20:09 0.5 mg ONCE ONE Administration Ketorolac Tromethamine 30 mg 04/20/24 20:08 04/20/24 20:30 Ketorolac 30 Mg/Ml Inj IVP 04/20/24 20:09 30 mg ONCE ONE Administration Ondansetron HCl 4 mg 04/20/24 20:08 04/20/24 20:30 Ondansetron 2 Mg/Ml Inj IVP 04/20/24 20:09 4 mg ONCE ONE Administration MDM - Abdominal Pain MDM Narrative Medical decision making narrative: This patient comes in with severe left abdomen and flank pain and has a history of kidney stones. An IV was established where he received Toradol, Dilaudid, and Zofran which brought good relief of his symptoms. CT imaging does show evidence of a stone in the proximal ureter measuring 5 mm with some evidence of mild obstruction. Urinalysis shows microscopic hematuria but no evidence of infection. I relayed these findings to the patient and indicated that he may need help passing this stone but there is yet a chance that he could pass this stone without assistance of urologist. He is okay to be discharged home and received [facility] prescriptions for Toradol, [place], Zofran, and a pharmacy prescription for Flomax. Lab Data Labs: Lab Results 04/20/24 Range/Units 20:10 Urine Color Yellow (Yellow) Urine Appearance Clear (Clear) Urine pH 7.5 (5.0-8.5) Ur Specific [place] 1.020 (1.000-1.030) Urine Protein Trace A (Negative) Urine Glucose (UA) Negative (Negative) Urine Ketones 2+ A (Negative) Urine Blood 1+ A (Negative) Urine Nitrite Negative (Negative) Urine Bilirubin Negative (Negative) Urine Urobilinogen 0.2 (0.2-1.0) Ur Leukocyte Esterase Negative (Negative) Urine RBC 2-5 A (0-2) Urine WBC 2-5 (0-5) Ur Squamous Epith Cells Few (None-Few) Urine Bacteria Few A (None) Imaging Data CT scan - abdomen: Radiologist's impression: Obstructing left proximal ureteral stone measuring 5 millimeters with mild hydronephrosis. ECG Data Attestation: I personally reviewed and interpreted this ECG as follows: Interpretation: Normal sinus rhythm. Rate is 67 beats per minute. There are no ST or T-wave abnormalities. Discharge Plan Discharge Clinical Impression: Calculus, ureteral Patient Disposition: Home, Self-Care Condition: Improved Additional Instructions: Take medication as needed and directed. Follow up with MD or return if symptoms are persistent or worsening. Prescriptions: New tamsulosin [Flomax] 0.4 mg capsule 0.4 mg PO DAILY Qty: 10 0RF No Action balsalazide 750 mg capsule PO infliximab [Remicade] 100 mg recon soln IV prednisone 20 mg tablet 20 mg PO BID Qty: 60 2RF flecainide 50 mg tablet 50 mg PO Q12H Rx Instructions: One in AM One in PM clonazepam 1 mg tablet 1 mg PO QDAY PRN (Reason: anxiety) Qty: 20 0RF sulfamethoxazole-trimethoprim [Bactrim DS] 800-160 mg tablet 1 tab PO BID Qty: 14 0RF sertraline [Zoloft] 100 mg tablet 100 mg PO QDAY Qty: 90 3RF oxycodone-acetaminophen [Percocet] 5-325 mg tablet 1 tab PO Q6H PRN (Reason: pain) Qty: 30 0RF gabapentin 300 mg capsule 300 mg PO BID PRN (Reason: pain) Qty: 30 0RF Follow Up/Referrals: Ben Koch MD [Primary Care Provider] - Stand Alone Forms: [employer] Residential Info Instructions
[2024-04-20] MEDS: HYDROmorphone 0.5 mg/0.5 ml inj IVP (20:29)
[2024-04-20] MEDS: ONDANSETRON 2 MG/ML inj 4 MG IVP (20:30)
[2024-04-20] MEDS: KETOROLAC 30 MG/ML inj IVP (20:30)
[2024-04-20 20:45] LABS: Appearance Urine Clear (Clear); Bilirubin Urine Negative (Negative); Blood Urine 1+ (Negative); Color Urine Yellow (Yellow); Glucose Urine Negative (Negative); Ketones Urine 2+ (Negative); Leukocyte Esterase Urine Negative (Negative); Nitrite Urine Negative (Negative); Protein Urine Trace (Negative); Urobilinogen Urine 0.2 (0.2-1.0); pH Urine 7.5 (5.0-8.5)
[2024-04-20 21:19] LABS: Bacteria Urine Few; Squamous Epithelial Cell Urine Few (None-Few)
== END 2024-04-20 22:36 | disposition home or self-care (01) ==
PROVIDERS: Emergency Provider Emergency Medicine Emergency Medical Services; PCP Internal Medicine
DX: N20.1 Calculus of ureter (principal)
CPT/HCPCS: 74176; 81001; 87086; 96374; 96375; 99284; J1170; J1885; J2405

== ENCOUNTER 2024-05-01 08:59 | Emergency (ER) | payer BC, SELFPAY ==
[2024-05-01 09:03] VITALS: BP 117/70; PULSE 65; RESP 18; TEMP 37.1; O2SAT 100; BMI 21.7
[2024-05-01 09:36] LABS: Lactate* 1.9 mmol/L (0.5-1.9)
[2024-05-01 09:41] LABS: Basophils Absolute Auto 0.02 K/uL (0.00-0.30); Basophils Percent Auto 0.2 % (0.0-3.0); Eosinophils Absolute Auto 0.18 K/uL (0.00-0.50); Eosinophils Percent Auto 1.6 % (0.0-7.0); Immature Granulocytes Abs Auto 0.01 K/uL (0.00-0.30); Immature Granulocytes Pct Auto 0.1 %; Lymphocytes Percent Auto 19.7 % (20-44); Mean Corpuscular HGB Conc 33 gm/dL (32-36); Mean Corpuscular Hemoglobin 30 pg (26-34); Mean Corpuscular Volume 90 fL (80-100); Monocytes Percent Auto 8.6 % (0.0-11.0); Neutrophils Absolute Auto 7.66 K/uL (1.7-7.0); Neutrophils Percent Auto 69.8 % (42.0-72.0); Platelet Count* 336 K/uL (140-440); RDW Coefficient of Variation % 12.5 % (11.5-15.5); Red Blood Count 5.02 m/uL (4.30-5.90); Slide Review Reflex No; White Blood Count* 10.99 K/uL (4.50-11.00)
[2024-05-01] MEDS: MORPHINE 4 MG/ML INJ IVP ×2 (09:42→12:59)
[2024-05-01] MEDS: ONDANSETRON 2 MG/ML inj 4 MG IVP (09:42)
[2024-05-01] MEDS: 0.9 % SODIUM CHLORIDE 1000 ml 1,000 ML IV (09:42)
[2024-05-01] MEDS: KETOROLAC 15 MG/ML inj IVP (09:42)
--- OUTSIDE RECORDS SUMMARY | 2024-05-01 09:44 | XMS_ITS | Encounter Summary ---
Author Organization [facility] Address [address] [place] [address]. [place] [address] Care Team Providers Care Software Security Consultant Name Role Phone Ben Koch MD Primary Care Provider Xavier Kaur MD Unavailable [phone] Savage Ma MD Unavailable [phone] Encounter Details Date Type Department Care Team [...] COVID-19? No / Unsure 07/05/2021 10:34 AM COMMUNITY HEALTH COORDINATOR documented as of this encounter Plan of Treatment Not on file documented as of this encounter Visit Diagnoses Not on filedocumented in this encounter Care Teams Software Security Consultant Relationship Specialty Start Date End Date Ben Koch MD [facility] [address] [place] [address] PCP - General Emergency Medicine 02/17/21 Xavier Kaur MD [facility] [address] [facility] [place] [address] Gastroenterology 02/17/21 Savage Ma MD [id number] [place] [address] 02/17/21 documented as of this encounter
--- OUTSIDE RECORDS SUMMARY | 2024-05-01 09:44 | XMS_ITS | Clinical Summary ---
Author Organization [facility] Address [address] [place] [address] Care Team Providers Care Machine Set Up Operator Name Role Phone Needs Pcp, Assignment Primary Care Provider [phone] Source Comments You are receiving this document [...] for each transition of care or referral. [employer] Allergies Active Allergy Reactions Criticality Noted Date [...] Comments Blood Pressure 102/68 07/06/2023 11:05 AM UROGYNECOLOGY PHYSICIAN Pulse 71 07/06/2023 11:05 AM UROGYNECOLOGY PHYSICIAN Temperature - - Respiratory Rate - - Oxygen Saturation - - Inhaled Oxygen Concentration - - Weight 78.7 kg (173 lb 6.4 oz) 07/06/2023 11:05 AM UROGYNECOLOGY PHYSICIAN Height 182.9 cm (6') 07/06/2023 11:05 AM UROGYNECOLOGY PHYSICIAN Body Mass Index 23.52 07/06/2023 11:05 AM UROGYNECOLOGY PHYSICIAN Plan of Treatment Health Maintenance Due Date Last Done Comments HIV Screening (Preventive Services) 1997 Adult Preventive Visit 1999 HepB (1) 2000 Cholesterol 2016 COVID-19 Vaccine ( - 2022-2 4 season) 2024 Influenza (#1) 2024 07/17/2020, 06/02/2019, 09/15/2008 DTaP/Tdap/Td [...] ANTIBODY, WITH REFLEX Routine 07/06/2023 11:58 AM UROGYNECOLOGY PHYSICIAN Other ulcerative colitis without complication (HRC) High risk medication use Inflammatory arthritis from Last 3 Months or Most Recently Relevant to Health Maintenance Results * Hepatitis C Antibody, with Reflex (07/06/2023 11:58 AM UROGYNECOLOGY PHYSICIAN) Hepatitis C Antibody Negative (Non Reactive) Negative (Non Reactive) 07/06/2023 6:16 PM UROGYNECOLOGY PHYSICIAN [facility] Comment:Antibodies to HCV no t detected. Does not exclude the possiblity of exposure to HCV. Blood Venipuncture / Unknown 07/06/2023 11:58 AM UROGYNECOLOGY PHYSICIAN 07/06/2023 11:58 AM UROGYNECOLOGY PHYSICIAN Luke W Desilet DO LAB_1 [facility] [address] [place] [address], [place] from Last 3 Months or Most Recently Relevant to Health Maintenance Care Teams Machine Set Up Operator Relationship Specialty Start Date End Date Needs Pcp, [place] [address] PCP - General 07/06/23
--- OUTSIDE RECORDS SUMMARY | 2024-05-01 09:44 | XMS_ITS | Referral Summary ---
Author Organization [facility] Address [address] [place] [address] Care Team Providers Care Airport Refueling Handler Name Role Phone Ben Koch MD Primary Care Provider Xavier Kaur MD Unavailable [phone] Savage Ma MD Unavailable [phone] Allergies No known active allergies Medications Medication [...] Comments Blood Pressure 127/86 07/05/2021 1:10 PM FOREST RESOURCES PROFESSOR Pulse 66 07/05/2021 11:40 AM FOREST RESOURCES PROFESSOR Temperature 36.1 ??C (97 ??F) 07/05/2021 10:45 AM FOREST RESOURCES PROFESSOR Respiratory Rate 18 07/05/2021 10:45 AM FOREST RESOURCES PROFESSOR Oxygen Saturation 98% 07/05/2021 1:40 PM FOREST RESOURCES PROFESSOR Inhaled Oxygen Concentration - - Weight - - Height - - Body Mass Index - - Plan of Treatment Not on file Procedures Procedure Name Priority Date/Time Associated Diagnosis Comments BASIC METABOLIC PANEL STAT 07/05/2021 11:33 AM FOREST RESOURCES PROFESSOR from Last 3 Months or Most Recently Relevant to Health Maintenance Results * Basic metabolic panel (07/05/2021 11:33 AM FOREST RESOURCES PROFESSOR) Sodium 139 133 - 144 mmol/L 07/05/2021 12:14 PM [facility] Potassium 4.4 3.4 - 5.3 mmol/L 07/05/2021 12:14 PM [facility] Comment:Specimen slightly he molyzed, potassium may be falsely elevated. Chloride 108 94 - 109 mmol/L 07/05/2021 12:14 PM [facility] Carbon Dioxide (CO2) 27 20 - 32 mmol/L 07/05/2021 12:14 PM [facility] Anion Gap 4 3 - 14 mmol/L 07/05/2021 12:14 PM [facility] Urea Nitrogen 13 7 - 30 mg/dL 07/05/2021 12:14 PM [facility] Creatinine 0.89 0.66 - 1.25 mg/dL 07/05/2021 12:14 PM [facility] Calcium 8.7 8.5 - 10.1 mg/dL 07/05/2021 12:14 PM [facility] Glucose 97 70 - 99 mg/dL 07/05/2021 12:14 PM [facility] GFR Estimate >90 >60 mL/min/1.7 3m2 07/05/2021 12:14 PM [facility] Comment:As of March 02, 2021, eGFR is calculated by the CKD-EPI creatinine equation, without race adjustment. eGFR can be influenced by muscle mass, exercise, and diet. The reported eGFR is an estimation only and is only applicable if the renal function is stable. Blood STRUCTURE OF RIGHT UPPER LIMB / Unknown Venipuncture / Unknown 07/05/2021 11:33 AM FOREST RESOURCES PROFESSOR 07/05/2021 11:52 AM FOREST RESOURCES PROFESSOR Kenzie Mccracken MD LAB - BLOOD KOKI DOMÍNGUEZ [facility] Organization Address City/State/ZIP Co de Phone Number LABORATORY [facility] [address] Lab (1st floor, no room number) [place] [address], [facility] [phone] from Last 3 Months or Most Recently Relevant to Health Maintenance Care Teams Airport Refueling Handler Relationship Specialty Start Date End Date Ben Koch MD [facility] [address] [place] [address] PCP - General Emergency Medicine 02/17/21 Xavier Kaur MD [facility] [address] [facility] [place] [address] Gastroenterology 02/17/21 Savage Ma MD [address] [facility] [address] [place] [address] 02/17/21
--- OUTSIDE RECORDS SUMMARY | 2024-05-01 09:44 | XMS_ITS | Clinical Summary ---
Author Organization [facility] Address [address] [place] [address] Care Team Providers Care Principal Java Developer Name Role Phone Ben Koch MD Primary Care Provider Xavier Kaur MD Unavailable [phone] Savage Ma MD Unavailable [phone] Allergies No known active allergies Medications Medication [...] Comments Blood Pressure 127/86 07/05/2021 1:10 PM PACKAGE CHECKER Pulse 66 07/05/2021 11:40 AM PACKAGE CHECKER Temperature 36.1 ??C (97 ??F) 07/05/2021 10:45 AM PACKAGE CHECKER Respiratory Rate 18 07/05/2021 10:45 AM PACKAGE CHECKER Oxygen Saturation 98% 07/05/2021 1:40 PM PACKAGE CHECKER Inhaled Oxygen Concentration - - Weight - [...] 3-dose series) 01/03/2020 08/04/2019, 06/02/2019 LIPID 2021 PHQ-2 (once per calendar year) 2023 COVID-19 Vaccine (1 - 2022-2 4 season) 2024 INFLUENZA VACCINE (#1) 2024 0, 06/02/2019 GLUCOSE [...] BASIC METABOLIC PANEL STAT 07/05/2021 11:33 AM PACKAGE CHECKER from Last 3 Months or Most Recently Relevant to Health Maintenance Results * Basic metabolic panel (07/05/2021 11:33 AM PACKAGE CHECKER) Sodium 139 133 - 144 mmol/L 07/05/2021 12:14 PM PACKAGE CHECKER [facility] Potassium 4.4 3.4 - 5.3 mmol/L 07/05/2021 12:14 PM PACKAGE CHECKER [facility] Comment:Specimen slightly he molyzed, potassium may be falsely elevated. Chloride 108 94 - 109 mmol/L 07/05/2021 12:14 PM PACKAGE CHECKER [facility] Carbon Dioxide (CO2) 27 20 - 32 mmol/L 07/05/2021 12:14 PM PACKAGE CHECKER [facility] Anion Gap 4 3 - 14 mmol/L 07/05/2021 12:14 PM PACKAGE CHECKER [facility] Urea Nitrogen 13 7 - 30 mg/dL 07/05/2021 12:14 PM PACKAGE CHECKER LAB[facility] Creatinine 0.89 0.66 - 1.25 mg/dL 07/05/2021 12:14 PM [facility] Calcium 8.7 8.5 - 10.1 mg/dL 07/05/2021 12:14 PM [facility] Glucose 97 70 - 99 mg/dL 07/05/2021 12:14 PM PACKAGE CHECKER LABOR[facility] GFR Estimate >90 >60 mL/min/1.7 3m2 07/05/2021 12:14 PM [facility] Comment:As of March 02, 2021, eGFR is calculated by the CKD-EPI creatinine equation, without race adjustment. eGFR can be influenced by muscle mass, exercise, and diet. The reported eGFR is an estimation only and is only applicable if the renal function is stable. Blood STRUCTURE OF RIGHT UPPER LIMB / Unknown Venipuncture / Unknown 07/05/2021 11:33 AM PACKAGE CHECKER 07/05/2021 11:52 AM PACKAGE CHECKER Kenzie Mccracken MD [facility] Organization Address City/State/ZIP Co de Phone Number LABORATORY [facility] Acute Care Lab [address] [facility] Lab (1st floor, no room number) [place] [address], [facility] [phone] from Last 3 Months or Most Recently Relevant to Health Maintenance Care Teams Principal Java Developer Relationship Specialty Start Date End Date Ben Koch MD [facility] [address] [place], [place] [id number] PCP - General Emergency Medicine 02/17/21 Xavier Kaur MD [facility] [address] [facility] [address] [place] [address] Gastroenterology 02/17/21 Savage Ma MD [id number] [place] [address] 02/17/21
--- OUTSIDE RECORDS SUMMARY | 2024-05-01 09:45 | XMS_ITS | Clinical Summary ---
Author Organization [facility] Address [place], [place] [address] Care Team Providers Care Wardrobe Attendant Name Role Phone Ben Koch MD Primary [...] 12 Seborrheic dermatitis 12/17/2010 PAROXYSMAL ATRIAL FIBRILLATION Overview (09/14/2008): S/P ablation by dr toussaint 12/27 S/P [...] Comments Blood Pressure 104/72 08/02/2023 9:32 AM FLAVORING MAKER Pulse 78 08/02/2023 9:32 AM FLAVORING MAKER Temperature 36.3 ??C (97.3 ??F) 11/19/2020 1:39 PM CD T Respiratory Rate 16 11/19/2020 1:39 PM CDT Oxygen Saturation 100% 08/02/2023 9:32 AM FLAVORING MAKER Inhaled Oxygen Concentration - - Weight 77.5 kg (170 lb 14.4 oz) 08/02/2023 9:32 AM FLAVORING MAKER Height 182.9 cm (6') 08/02/2023 9:32 AM FLAVORING MAKER Body Mass Index 23.18 08/02/2023 9:32 AM FLAVORING MAKER Plan of Treatment Upcoming Encounters Date Type Department Care Team (Latest Contact Info) Description 05/04/2024 8:45 AM CDT Hospital Encounter [facility] [address] [place] [address] Dante Dennis MD [address] [place] [address] 05/04/2024 8:45 AM CDT - 05/04/2024 10:05 AM CDT Surgery [facility] [address] [place] [address] Dante Dennis MD [address] [place] [address] CYSTOSCOPY, LEFT URETEROSCOPY, HOLMIUM LASER LITHOTRIPSY Scheduled Procedures Name Priority Associated Diagnoses Date/Ti me CYSTOSCOPY URETEROSCOPY LASER Class E Urgent N20.0- kidney stones 05/04/2024 8:45 AM CDT CYSTOSCOPY PLACEMENT URETERAL STENT Class E Urgent N20.0- kidney stones 05/04/2024 8:45 AM CDT Health Maintenance Due Date Last Done Comments [...] this topic Medical Devices Implanted Type Area Balance Truing Inspector Device Identifier Shelf Expiration Date Model / Serial / Lot Stent Uret [id number] Contour - [id number] Implanted:Qty: 1 on 10/24/2020 by Gricelda Henning MD at [facility] Left: Ureter [facility] [id number] / / [id number] Procedures Procedure Name Priority Date/Time Associated Diagnosis [...] 6:04 AM 09/15/2008 1:28 PM Care Teams Wardrobe Attendant Relationship Specialty Start Date End Date Ben Koch MD [address] [place] [address] PCP - General Internal Medicine 03/09/18
[2024-05-01 09:54] LABS: Appearance Urine Clear (Clear); Bilirubin Urine Negative (Negative); Blood Urine Negative (Negative); Color Urine Yellow (Yellow); Glucose Urine Negative (Negative); Ketones Urine Negative (Negative); Leukocyte Esterase Urine Negative (Negative); Nitrite Urine Negative (Negative); Protein Urine Negative (Negative); Urobilinogen Urine 0.2 (0.2-1.0); pH Urine 8.5 (5.0-8.5)
[2024-05-01 10:03] LABS: Chloride* 108 mmol/L (96-114); Potassium* 4.4 mmol/L (3.6-5.1); Sodium* 142 mmol/L (135-149)
[2024-05-01 10:06] LABS: Creatinine* 1.1 mg/dL (0.5-1.5); Estimated Glomerular Filt Rate 86 ml/min
[2024-05-01 10:07] LABS: Anion Gap 8 mEq/L (7-15); Blood Urea Nitrogen* 10 mg/dL (5-24); Carbon Dioxide* 26 mmol/L (20-32); Glucose* 101 mg/dL (60-115)
[2024-05-01 10:09] LABS: RBC Urine 0-2 (0-2); Squamous Epithelial Cell Urine Few (None-Few); WBC Urine 0-2 (0-5)
[2024-05-01 10:10] LABS: C Reactive Protein* 0.9 mg/dL (0.5-1.0)
--- NOTE | 2024-05-01 10:14 | ED.GENADULT ---
HPI - General Adult General Date Seen: 05/01/24 Chief complaint: Flank Pain Stated complaint: Kidney pain, fever Time Seen by Provider: 05/01/24 09:13 Source: patient Mode of arrival: ambulatory Limitations: no limitations History of Present Illness HPI narrative: Patient is a 43-year-old male seen here recently and diagnosed with a 5 mm ureteral stone and hydronephrosis. He has subsequently been seen by Dr. Dennis and has a procedure scheduled this coming for stone removal. He comes in due to persistent severe pain and vomiting despite treatment at home. He reports intermittent fevers up to 101. He has had difficulty taking his medications secondary to vomiting. He does have a history of ulcerative colitis, gets Remicade in objections for that. He has a history of atrial fibrillation but is not anticoagulated. Related Data Home Medications ?Medication ?Instructions ?Recorded ?Confirmed balsalazide 750 mg capsule mg PO 11/06/22 04/19/24 infliximab 100 mg intravenous IV 11/06/22 04/19/24 solution (Remicade) flecainide 50 mg tablet 50 mg PO Q12H 12/27/23 04/19/24 Previous Rx's ?Medication ?Instructions ?Recorded gabapentin 300 mg capsule 300 mg PO BID PRN pain #30 caps 03/12/23 oxycodone-acetaminophen 5 mg-325 1 tab PO Q6H PRN pain #30 tabs 03/12/23 mg tablet (Percocet) prednisone 20 mg tablet 20 mg PO BID Arthritis #60 tabs 05/03/23 clonazepam 1 mg tablet 1 mg PO QDAY PRN anxiety #20 tabs 12/27/23 sertraline 100 mg tablet (Zoloft) 100 mg PO QDAY #90 tabs 01/18/24 sulfamethoxazole 800 1 tab PO BID #14 tabs 04/05/24 mg-trimethoprim 160 mg tablet (Bactrim DS) tamsulosin 0.4 mg capsule (Flomax) 0.4 mg PO DAILY #10 caps 04/20/24 Allergies Allergy/AdvReac Type Severity Reaction Status Date / Time venlafaxine Allergy Unknown Unknown Verified 04/19/24 07:58 Review of Systems Status of ROS: Reports: 6 or more systems reviewed and unremarkable except as noted in History and below PFSH PFS Medical History UTI (urinary tract infection) ?N39.0 - Urinary tract infection, site not specified (ICD-10) Anxiety ?F41.9 - Anxiety disorder, unspecified (ICD-10) Inflammatory bowel disease ?K52.9 - Noninfective gastroenteritis and colitis, unspecified (ICD-10) Social History Smoking Status: Never smoker Do you use any of these nicotine containing products: None How often do you have a drink containing alcohol: never How often do you have six or more drinks on one occasion: Never AUDIT-C Alcohol total score: 0 Non-prescribed substance use: denies use Little interest or pleasure in doing things: not at all Feeling down, depressed, or hopeless: not at all service: No Exam Narrative: Exam Narrative: Vital signs as noted above. In general, an alert, nontoxic male. Head: Normocephalic, atraumatic. Eyes: Pupils are equal reactive. Extraocular movements are full. Conjunctivae are normal. ENT: Mucous membranes are moist. Throat is normal. Neck: Supple without lymphadenopathy. Heart: Regular rate and rhythm. No murmur or rub. Lungs: Clear bilaterally. No increased work of breathing, crackles or wheezes. Abdomen: Soft and nontender. No organomegaly. Extremities: Well perfused. No edema. No calf tenderness. Pulses intact. Neurologic: Patient is alert and oriented to person and place. Speech is fluent. Face is symmetric. Moves all extremities equally. Affect: Belligerent. Skin: Warm and dry. Well perfused. Const: Vital Signs, click to edit/add: Vital Signs - 24 hr 05/01/24 09:03 05/01/24 10:42 Temperature 98.7 F Pulse Rate [Right Pulse Oximeter] 65 60 Respiratory Rate 18 18 Blood Pressure [Ri ght Upper Arm] 117/70 120/68 Pulse Oximetry 100 98 Oxygen Delivery Me thod Room Air Room Air Documenting provider has reviewed patient's vital signs: yes Course Course ED Course: Patient is nontoxic, afebrile here with normal vital signs. Will place an IV, give more find, Toradol and Zofran for symptomatic control. IV fluids given reported history of vomiting. Urinalysis was obtained, this is negative, 0-2 red cells and 0-2 white cells. No bacteria. White blood cell count is normal at 11, unremarkable diff. electrolytes are normal, creatinine is 1.1, BUN 10. CRP is 0.9. Urology paged at 10:15 a.m.. Spoke with Urology, they agree with transfer for admission and pain control, stone removal when Dr. Dennis is able to fit that into the schedule. No indication for antibiotics at this time. Patient is awaiting bed placement at [facility], up to 8 hour delay. Vital Signs Vital signs: Initial Vital Signs Temperature 98.7 F 05/01/24 09:03 Temperature Source Temporal Artery Scan 05/01/24 09:03 Pulse Rate 65 05/01/24 09:03 Respiratory Rate 18 05/01/24 09:03 Blood Pressure 117/70 05/01/24 09:03 Blood Pressure Mean 85 05/01/24 09:03 Blood Pressure Position Sitting 05/01/24 09:03 Pulse Oximetry 100 05/01/24 09:03 Oxygen Delivery Method Room Air 05/01/24 09:03 Vital Signs Temperature 98.7 F 05/01/24 09:03 Pulse Rate 65 05/01/24 09:03 Respiratory Rate 18 05/01/24 09:03 Blood Pressure 117/70 05/01/24 09:03 Pulse Oximetry 100 05/01/24 09:03 Oxygen Delivery Method Room Air 05/01/24 09:03 Temperature 98.7 F 05/01/24 09:03 Pulse Rate 60 05/01/24 10:42 Respiratory Rate 18 05/01/24 10:42 Blood Pressure 120/68 05/01/24 10:42 Pulse Oximetry 98 05/01/24 10:42 Oxygen Delivery Method Room Air 05/01/24 10:42 Medications Administered Medications: Discontinued Medications Generic Name Dose Route Start Last Admin Trade Name Freq PRN Reason Stop Dose Admin Sodium Chloride 1,000 mls @ 1,000 mls/hr 05/01/24 09:30 05/01/24 10:39 0.9 % Sodium Chloride 1000 Ml IV 05/01/24 10:29 Infused .Q1H GRACE Infusion Ketorolac Tromethamine 15 mg 05/01/24 09:19 05/01/24 09:42 Ketorolac 15 Mg/Ml Inj IVP 05/01/24 09:20 15 mg ONCE ONE Administration Morphine Sulfate 4 mg 05/01/24 09:19 05/01/24 09:42 Morphine 4 Mg/Ml Inj IVP 05/01/24 09:20 4 mg ONCE ONE Administration Morphine Sulfate 4 mg 05/01/24 12:48 05/01/24 12:59 Morphine 4 Mg/Ml Inj IVP 4 mg ONCE PRN Administration pain Ondansetron HCl 4 mg 05/01/24 09:19 05/01/24 09:42 Ondansetron 2 Mg/Ml Inj IVP 05/01/24 09:20 4 mg ONCE ONE Administration Medical Decision Making Lab Data Labs: Lab Results 05/01/24 Range/Units 09:30 WBC 10.99 (4.50-11.00) K/uL RBC 5.02 (4.30-5.90) m/uL Hgb 15.0 (13.5-17.5) gm/dL Hct 45.0 (37.0-53.0) % MCV 90 (80-100) fL MCH 30 (26-34) pg MCHC 33 (32-36) gm/dL RDW Coeff of Larry 12.5 (11.5-15.5) % Plt Count 336 (140-440) K/uL Neut % (Auto) 69.8 (42.0-72.0) % Lymph % (Auto) 19.7 L (20-44) % [place] % (Auto) 8.6 (0.0-11.0) % Eos % (Auto) 1.6 (0.0-7.0) % Baso % (Auto) 0.2 (0.0-3.0) % Neut # (Auto) 7.66 H (1.7-7.0) K/uL Lymph # (Auto) 2.20 (0.90-2.90) K/uL [place] # (Auto) 0.90 (0.00-0.90) K/UL Eos # (Auto) 0.18 (0.00-0.50) K/uL Baso # (Auto) 0.02 (0.00-0.30) K/uL Abs Immat Gran (auto) 0.01 (0.00-0.30) K/uL Imm/Tot Granulo (auto) 0.1 % Sodium 142 (135-149) mmol/L Potassium 4.4 (3.6-5.1) mmol/L Chloride 108 (96-114) mmol/L Carbon Dioxide 26 (20-32) mmol/L Anion Gap 8 (7-15) mEq/L BUN 10 (5-24) mg/dL Creatinine 1.1 (0.5-1.5) mg/dL Estimated Creat Clear 89.80 Estimated GFR 86 ml/min Glucose 101 (60-115) mg/dL Lactate 1.9 (0.5-1.9) mmol/L Calcium 10.0 (8.4-10.6) mg/dL C-Reactive Protein 0.9 (0.5-1.0) mg/dL Urine Color Yellow (Yellow) Urine Appearance Clear (Clear) Urine pH 8.5 (5.0-8.5) Ur Specific [place] 1.020 (1.000-1.030) Urine Protein Negative (Negative) Urine Glucose (UA) Negative (Negative) Urine Ketones Negative (Negative) Urine Blood Negative (Negative) Urine Nitrite Negative (Negative) Urine Bilirubin Negative (Negative) Urine Urobilinogen 0.2 (0.2-1.0) Ur Leukocyte Esterase Negative (Negative) Urine RBC 0-2 (0-2) Urine WBC 0-2 (0-5) Ur Squamous Epith Cells Few (None-Few) Urine Bacteria None (None) Discharge Plan Discharge Clinical Impression: Hydronephrosis with urinary obstruction due to ureteral calculus Patient Disposition: Xfer Other Condition: Stable Prescriptions: No Action balsalazide 750 mg capsule PO infliximab [Remicade] 100 mg recon soln IV prednisone 20 mg tablet 20 mg PO BID Qty: 60 2RF flecainide 50 mg tablet 50 mg PO Q12H Rx Instructions: One in AM One in PM clonazepam 1 mg tablet 1 mg PO QDAY PRN (Reason: anxiety) Qty: 20 0RF sulfamethoxazole-trimethoprim [Bactrim DS] 800-160 mg tablet 1 tab PO BID Qty: 14 0RF sertraline [Zoloft] 100 mg tablet 100 mg PO QDAY Qty: 90 3RF tamsulosin [Flomax] 0.4 mg capsule 0.4 mg PO DAILY Qty: 10 0RF oxycodone-acetaminophen [Percocet] 5-325 mg tablet 1 tab PO Q6H PRN (Reason: pain) Qty: 30 0RF gabapentin 300 mg capsule 300 mg PO BID PRN (Reason: pain) Qty: 30 0RF Stand Alone Forms: MyHealth Info Instructions
[2024-05-01 10:42] VITALS: BP 120/68; PULSE 60; RESP 18; O2SAT 98
== END 2024-05-01 14:12 | disposition other institution (70) ==
PROVIDERS: Emergency Provider Emergency Medicine; PCP Internal Medicine
DX: N13.2 Hydronephrosis with renal and ureteral calculous obstruction (principal)
CPT/HCPCS: 36415; 80048; 81001; 83605; 85025; 86140; 96374; 96375; 96376; 99284; J1885; J2270; J2405; J7030

== ENCOUNTER 2024-05-01 13:50 | Outpatient (CLI) | payer BC, SELFPAY ==
--- OUTSIDE RECORDS SUMMARY | 2024-05-24 03:09 | XMS_ITS | Clinical Summary ---
Author Organization [facility] Address [address] [place] [address] Care Team Providers Care Housecleaner Floor Name Role Phone Needs Pcp, Assignment Primary Care Provider [phone] Source Comments You are receiving this document [...] for each transition of care or referral. [employer] Allergies Active Allergy Reactions Criticality Noted Date [...] Comments Blood Pressure 102/68 07/06/2023 11:05 AM CLOTH SHRINKING MACHINE OPERATOR Pulse 71 07/06/2023 11:05 AM CLOTH SHRINKING MACHINE OPERATOR Temperature - - Respiratory Rate - - Oxygen Saturation - - Inhaled Oxygen Concentration - - Weight 78.7 kg (173 lb 6.4 oz) 07/06/2023 11:05 AM CLOTH SHRINKING MACHINE OPERATOR Height 182.9 cm (6') 07/06/2023 11:05 AM CLOTH SHRINKING MACHINE OPERATOR Body Mass Index 23.52 07/06/2023 11:05 AM CLOTH SHRINKING MACHINE OPERATOR Plan of Treatment Health Maintenance Due Date Last Done Comments HIV Screening (Preventive Services) 1997 Adult Preventive Visit 1999 HepB (1) 2000 Cholesterol 2016 COVID-19 Vaccine ( - 2023-2 5 season) 2024 Influenza (#1) 2024 07/17/2020, 06/02/2019, [...] ANTIBODY, WITH REFLEX Routine 07/06/2023 11:58 AM CLOTH SHRINKING MACHINE OPERATOR Other ulcerative colitis without complication (HRC) High risk medication use Inflammatory arthritis from Last 3 Months or Most Recently Relevant to Health Maintenance Results * Hepatitis C Antibody, with Reflex (07/06/2023 11:58 AM CLOTH SHRINKING MACHINE OPERATOR) Hepatitis C Antibody Negative (Non Reactive) Negative (Non Reactive) 07/06/2023 6:16 PM CLOTH SHRINKING MACHINE OPERATOR [facility] Comment:Antibodies to HCV no t detected. Does not exclude the possiblity of exposure to HCV. Blood Venipuncture / Unknown 07/06/2023 11:58 AM CLOTH SHRINKING MACHINE OPERATOR 07/06/2023 11:58 AM CLOTH SHRINKING MACHINE OPERATOR Luke W Desilet DO LAB[facility]1 [facility] [address] [place] [address], [facility] from Last 3 Months or Most Recently Relevant to Health Maintenance Care Teams Housecleaner Floor Relationship Specialty Start Date End Date Needs Pcp, [place] [address] PCP - General 07/06/23
--- OUTSIDE RECORDS SUMMARY | 2024-05-24 03:09 | XMS_ITS | Continuity of Care Document ---
Author Organization [facility] Address [address] [place] [address] Care Team Providers Care Air Conditioning Insulation Installer Name Role Phone CIARAGUS Primary Care Provider [phone] Assessment No assessment recorded. Plan of Treatment Reminders Order Date Submit Date Provider Last Modified By Organization Details Last Modified Time Details Appointments HOSPIT AL 60 2023 12:00P M Not available Not available Not available Lab urinal ysis, dipsti ck 2023 024 [email or web address] ro [facility], [address], [place], [address], 04/26/2024 15:09:41 Referral None record ed. Procedures None record ed. Surgeries ureter oscopy with stone basket extrac tion, nnamdi riggs laser fragme ntatio n (SURG) 2023 024 [email or web address] Not available 04/27/2024 10:04:08 Imaging None record ed. Medication Orders oxycod one-ac etamin ophen 5 mg-325 mg tablet 2023 024 [id number], [address], [address], 04/26/2024 15:34:31 Zofran 4 mg tablet 2023 024 [id number], [address], [address], 04/26/2024 15:34:31 Patient TargetsNo targets recorded. Patient InstructionsNo instructions recorded. Reason for Referral None Reported. Results Created Date Observation Date Name Description Value Unit Range Abnormal Flag Note LastModifiedBy Organization Detail LastModifiedTime 04/26/20 24 04/26/2024 urina lysis , dipst ick BLOOD Small (10 RBC/uL ) Not Available [facility] [address], [place], [address], 04/26/2024 15:09:12 04/26/20 24 04/26/2024 urina lysis , dipst ick BILIRUBIN Small (0.5 mg/dL) Not Available [facility] [address], [place], [address], 04/26/2024 15:09:12 04/26/20 24 04/26/2024 urina lysis , dipst ick UROBILINOGEN 0.2 mg/dL (Norm) Not Available [facility] [address], [place], [address], 04/26/2024 15:09:12 04/26/20 24 04/26/2024 urina lysis , dipst ick KETONES Trace (5 mg/dL) Not Available [facility] [address], [place], [address], 04/26/2024 15:09:12 04/26/20 24 04/26/2024 urina lysis , dipst ick PROTEIN Negati ve Not Available [facility] [address], [place], [address], 04/26/2024 15:09:12 04/26/20 24 04/26/2024 urina lysis , dipst ick NITRITES Negati ve Not Available [facility] [address], [place], [address], 04/26/2024 15:09:12 04/26/20 24 04/26/2024 urina lysis , dipst ick GLUCOSE Negati ve Not Available [facility] [address], [place], [address], 04/26/2024 15:09:12 04/26/20 24 04/26/2024 urina lysis , dipst ick p.H. 6.0 Not Available [facility] [address], [place], [address], 04/26/2024 15:09:12 04/26/20 24 04/26/2024 urina lysis , dipst ick S.G. (Specific [place]) 1.020 Not Available [facility] [address], [place], [address], 04/26/2024 15:09:12 04/26/20 24 04/26/2024 urina lysis , dipst ick LEUKOCYTES Negati ve Not Available [facility] [address], [place], [address], 04/26/2024 15:09:12 Result Notes None recorded. Medical Equipment None Reported. Allergies No known drug allergies Medications Name Sig Start Date Stop Date Status Note LastModified by Organization Details LastModified Time amoxicillin 500 mg capsule TAKE ONE CAPSULE BY MOUTH THREE TIMES DAILY* 04/26 completed Not Available Not Available Not Available hydrocodone 5 mg-acetamin ophen 325 mg tablet 04/26 completed Not Available Not Available Not Available phenazopyri dine 200 mg tablet TAKE ONE TABLET BY MOUTH EVERY EIGHT HOURS NEEDED* active Not Available Not Available No t Available ondansetron HCl 4 mg tablet TAKE TWO TABLETS BY MOUTH TWICE DAILY* active Not Available Not Available No t Available prednisone 20 mg tablet TAKE ONE TABLET BY MOUTH TWICE DAILY FOR ARTHRITIS * 04/26 completed Not Available Not Available Not Available sertraline 100 mg tablet TAKE ONE TABLET BY MOUTH ONE TIME DAILY* active Not Available Not Available No t Available clonazepam 1 mg tablet TAKE ONE TABLET BY MOUTH DAILY NEEDED FOR ANXIETY* active Not Available Not Available No t Available Remicade 100 mg intravenous solution Inject by intraveno us route. active Not Available Not Available No t Available sulfamethox azole 800 mg-trimetho prim 160 mg tablet TAKE ONE TABLET BY MOUTH TWICE DAILY* 04/26 completed Not Available Not Available Not Available ketorolac 10 mg tablet 04/26 completed Not Available Not Available Not Available oxycodone-a cetaminophe n 5 mg-325 mg tablet TAKE ONE TABLET BY MOUTH EVERY SIX HOURS NEEDED FOR PAIN* active Not Available Not Available No t Available tamsulosin 0.4 mg capsule take 1 capsule by mouth daily* active Not Available Not Available No t Available cephalexin 500 mg capsule active Not Available Not Available Not Available hyoscyamine 0.125 mg sublingual tablet DISSOLVE ONE TABLET UNDER TONGUE EVERY FOUR HOURS NEEDED* active Not Available Not Available No t Available flecainide 50 mg tablet TAKE ONE TABLET BY MOUTH TWICE DAILY* 04/26 completed Not Available Not Available Not Available oxybutynin chloride ER 5 mg tablet,exte nded release 24 hr TAKE ONE TABLET BY MOUTH ONE TIME DAILY* active Not Available Not Available No t Available balsalazide 750 mg capsule take 5 capsules by mouth in the morning and 4 capsules in the evening* active Not Available Not Available No t Available ondansetron 4 mg disintegrat ing tablet active Not Available Not Available N ot Available sertraline 50 mg tablet TAKE ONE TABLET BY MOUTH ONE TIME DAILY* 04/26 completed Not Available Not Available Not Available Paxlovid 300 mg (150 mg x 2)-100 mg tablets in a dose pack Take 2 nirmatrel vir 150 mg pink-oval tablets and 1 ritonavir 100 mg white-ova l tablet together twice daily for 5 days.* 04/26 completed Not Available Not Available Not Available Vitals Date Recorded Body height Body mass index (BMI) Body weight Provider Name and Address Organization Details Last Updated DateTime 04/26/2024 182.88 cm 21.8 kg/m2 40676.37 g Samuel castro [facility] 04/26/2024 15:11:36 Social History Question Answer Notes LastModified by Organizat ion Details LastModified Time Tobacco Smoking Status Never Smoker Samuel Mojica null, [facility] 04/26/2024 15:14:57 What Is Your Level Of Alcohol Consumption? None Information not available 04/26/2024 What Is Your Level Of Caffeine Consumption? None Information not available 04/26/2024 What Was The Date Of Your Most Recent Tobacco Screening? 04/26/2024 Information not available 04/26/2024 Do You Use Any Illicit Or Recreational Drugs? No Information not available 04/26/2024 Sex: Unknown Functional Status None recorded. Mental Status None recorded. Family History Nothing Reported. Medical History Condition Response Kidney Stones Y Immunizations Vaccine Type Date Status Provider Name and Address Organization Details Recorded Time pneumococcal polysaccharide PPV23 08/04/2019 completed Samuel Deleon-Valer o null, [facility] 04/26/2024 15:11:55 Tdap 04/30/2015 completed Tiarai Deleon-Valer o null, [facility] 04/26/2024 15:11:55 Pneumococcal conjugate PCV 13 04/11/2019 completed Samuel Deleon-Valer o null, [facility] 04/26/2024 15:11:55 Hep B, adult 07/14/2021 completed Samuel Deleon-Valer o null, [facility] 04/26/2024 15:11:55 Influenza, split virus, quadrivalent, PF 06[facility]02/2019 [facility], [facility] 04/26/2024 15:11:55 Influenza, split virus, quadrivalent, PF 07/17/2020 completed Tiarai Deleon-Valer o null, [facility] 04/26/2024 15:11:55 Hep A-Hep B 06/02/2019 [facility], [facility] 04/26/2024 15:11:55 Hep A-Hep B 08/04/2019 completed Milsauravi Deleon-Valer o null, [facility] 04/26/2024 15:11:55 Past Encounters Encounter ID Performer Location Encounter Start Date Encounter Closed Date Diagnosis/Indication Diagnosis SNOMED-CT Code Diagnosis ICD10 Code [id number] Dante Dennis MD [facility] [address] [place] [address] 04/26/2024 14:47:39 04/27/2024 13:57:11 Kidney stone 08775596 N20.0 Health Concerns Section Related Observation LastModified by Organization Detai ls LastModified Time None Recorded Concern Status LastModified by Organization Details LastModified Time None Recorded Payers Encounter Date Sequence Insurance Name Policy Number Policy Muñoz Covered Member ID Muñoz Member ID Guarantor Name 04/26/2024 1 [place] [id number] Maura Moreno [id number] Omer Tiffanie 04/26/2024 2 [place] [id number] Omer Moreno [id number] Omer Moreno Notes Date Note Type Note Provider Name and Address Organization Details Recorded Time 04/26/2024 text/html HPI Notes: 43 yo male with history of paroxysmal A.fib, colitis, ADHD, and kidney stones - presents for treatment of Left ureteral stone. He developed Left abdominal / flank pain with nausea / vomiting on 04/20/24. CT scan (04/20/24) - Left - 5 mm stone (proximal ureter) - Right - no stone. He reports intermittent Left flank pain and nausea. He denies urinary urgency or dysuria. - s/p Left ESWL with stent removal - (11/19/20) - Derian - UA - 1+ blood - no LE - pH - 6.0 CT scan (04/20/24) - Left - 5 mm stone (proximal ureter - L4) - Right - no stones Dante Dennis MD [address] [facility],[address], [place], [address], [facility] 04/27/2024 15:46:13
--- OUTSIDE RECORDS SUMMARY | 2024-05-24 03:09 | XMS_ITS | Data Portability ---
Author Organization [facility], [facility] Address [address] [place] [address] Care Team Providers Care Engineering Inspection Assistant Name Role Phone GUS URBINA Primary Care Provider Assessment No assessment recorded. Plan of Treatment Reminders Order Date Submit Date Provider Last Modified By Organization Details Last Modified Time Details Appointments [facility] 60 2023 12:00P M Not available Not available Not available Lab urinal ysis, dipsti ck 2023 024 [email or web address] ro [facility], [address], [place], [address], 04/26/2024 15:09:41 Referral None record ed. Procedures None record ed. Surgeries ureter oscopy with stone basket extrac tinnamdi denson laser fragme ntatio n (SURG) 2023 024 [email or web address] Not available 04/27/2024 10:04:08 Imaging None record ed. Medication Orders oxycod one-ac etamin ophen 5 mg-325 mg tablet 2023 024 [id number], [address], [address], 04/26/2024 15:34:31 Zofran 4 mg tablet 2023 024 [id number], [address], [address], 04/26/2024 15:34:31 Patient TargetsNo targets recorded. Patient InstructionsNo instructions recorded. Reason for Referral None Reported. Results Created Date Observation Date Name Description Value Unit Range Abnormal Flag Note LastModifiedBy Organization Detail LastModifiedTime 04/26/20 24 04/26/2024 urina lysis , dipst ick BLOOD Small (10 RBC/uL ) Not Available [facility] [address], [place], [address], 04/26/2024 15:09:12 04/26/20 24 04/26/2024 urina lysis , dipst ick BILIRUBIN Small (0.5 mg/dL) Not Available [facility] [address], [place], [address], 04/26/2024 15:09:12 04/26/20 24 04/26/2024 urina lysis , dipst ick UROBILINOGEN 0.2 mg/dL (Norm) Not Available [facility] [address], [place], [address], 04/26/2024 15:09:12 04/26/20 24 04/26/2024 urina lysis , dipst ick KETONES Trace (5 mg/dL) Not Available [facility] [address], [place], [address], 04/26/2024 15:09:12 04/26/20 24 04/26/2024 urina lysis , dipst ick PROTEIN Negati ve Not Available [facility] [address], [place], [address], 04/26/2024 15:09:12 04/26/20 24 04/26/2024 urina lysis , dipst ick NITRITES Negati ve Not Available [facility] [address], [place], [address], 04/26/2024 15:09:12 04/26/20 24 04/26/2024 urina lysis , dipst ick GLUCOSE Negati ve Not Available [facility] [address], [place], [address], 04/26/2024 15:09:12 04/26/20 24 04/26/2024 urina lysis , dipst ick p.H. 6.0 Not Available [facility] [address], [place], [address], 04/26/2024 15:09:12 04/26/20 24 04/26/2024 urina lysis , dipst ick S.G. (Specific [place]) 1.020 Not Available [facility] [address], [place], [address], 04/26/2024 15:09:12 04/26/20 24 04/26/2024 urina lysis , dipst ick LEUKOCYTES Negati ve Not Available [facility] [address], [place], [address], 04/26/2024 15:09:12 Result Notes None recorded. Medical [...] Updated DateTime 04/26/2024 182.88 cm 21.8 kg/m2 90691.37 g Samuel castro [facility] 04/26/2024 15:11:36 Social History Question Answer Notes LastModified by Organizat ion Details LastModified Time Tobacco Smoking Status Never Smoker Samuel Mojica null, [facility] 04/26/2024 15:14:57 What Is Your Level [...] PPV23 08/04/2019 completed Samuel Deleon-Valer o null, [facility] 04/26/2024 15:11:55 Tdap 04/30/2015 completed Tiarai Deleon-Valer o null, [facility] 04/26/2024 15:11:55 Pneumococcal conjugate PCV 13 04/11/2019 completed Samuel Deleon-Valer o null, [facility] 04/26/2024 15:11:55 Hep B, adult 07/14/2021 completed Tiarai Deleon-Valer o null, [facility] 04/26/2024 15:11:55 Influenza, split virus, quadrivalent, PF [facility]02[facility], [facility] 04/26/2024 15:11:55 Influenza, split virus, quadrivalent, PF 07/17/2020 completed Tiarai Deleon-Valer o null, [facility] 04/26/2024 15:11:55 Hep A-Hep B 06/02/2019 completed Milsauravi Deleon-Valer o null, [facility] 04/26/2024 15:11:55 Hep A-Hep B 08/04/2019 completed Tiarai Deleon-Valer o null, [facility] 04/26/2024 15:11:55 Past Encounters Encounter ID Performer Location Encounter Start Date Encounter Closed Date Diagnosis/Indication Diagnosis SNOMED-CT Code Diagnosis ICD10 Code [id number] Dante Dennis MD [facility] [address] [place] [address] 04/26/2024 14:47:39 04/27/2024 13:57:11 Kidney stone 04414945 N20.0 Health Concerns Section Related Observation LastModified by Organization Detai ls LastModified Time None Recorded Concern Status LastModified by Organization Details LastModified Time None Recorded Advance Directives Directive None Recorded Payers Encounter Date Sequence Insurance Name Policy Number Policy Muñoz Covered Member ID Muñoz Member ID Guarantor Name 04/26/2024 1 [place] [id number] Maura Tiffanie [id number] Omer Moreno 04/26/2024 2 [place] [id number] Omer Moreno [id number] Omer Moreno Notes Date Note Type [...] Right - no stones Dante Dennis MD [address] [place] [address],[address], [place], [address], [facility] 04/27/2024 15:46:13
--- OUTSIDE RECORDS SUMMARY | 2024-05-24 03:10 | XMS_ITS | Continuity of Care Document ---
Author Organization [facility] Address [address] [address] [place] [address] Phone Care Team Providers Care Senior Engineering Tech Name Role Phone Luis Fernando THOMPSON, Jarrell Unavailable Unavailable Allergies, Adverse Reactions, Alerts Substance Reaction Status Criticality VENLAFAXINE HCL Unknown Active No Informati on Medications Medication Instructions Dosage Effective Dates (start - stop) Status Comments Remicade Administer Remicade 5 mg/kg every 4 weeks infuse by IV route - Active balsalazide 750 mg capsule take 5 capsules by mouth in the morning and 4 capsules in the evening - Active flecainide 50 mg tablet take 1 tablet by oral route every 12 hours 50 MG - Active Remicade 100 mg intravenous solution Administer Remicade 5mg/kg every four weeks, infuse by IV route - No Longer Active Procedures Procedure Date Remicade Per 10 Mg Remicade Per 10 Mg IV Infusion Up To 1 Hour Remicade Per 10 Mg Remicade Per 10 Mg IV Infusion Up To 1 Hour Remicade Per 10 Mg Remicade Per 10 Mg IV Infusion Up To 1 Hour Established Level 3 Remicade Per 10 Mg Remicade Per 10 Mg IV Infusion Up To 1 Hour Remicade Per 10 Mg Remicade Per 10 Mg IV Infusion Up To 1 Hour Remicade Per 10 Mg IV Infusion Up To 1 Hour Remicade Per 10 Mg IV Infusion Up To 1 Hour Routine Serum Collection Remicade Per 10 Mg IV Infusion Up To 1 Hour Remicade Per 10 Mg IV Infusion Up To 1 Hour Remicade Per 10 Mg IV Infusion Up To 1 Hour Remicade Per 10 Mg IV Infusion Up To 1 Hour Remicade Per 10 Mg IV Infusion Up To 1 Hour Remicade Per 10 Mg IV Infusion Up To 1 Hour Routine Serum Collection Offic/outpt E&m Estab Mod-hi 2 Remicade Per 10 Mg IV Infusion Up To 1 Hour Remicade Per 10 Mg IV Infusion Up To 1 Hour Remicade Per 10 Mg IV Infusion Up To 1 Hour Remicade Per 10 Mg IV Infusion Up To 1 Hour Routine Serum Collection IV Infusion Up To 1 Hour Remicade Per 10 Mg Remicade Per 10 Mg IV Infusion Up To 1 Hour IV Infusion Up To 1 Hour Remicade Per 10 Mg Offic/outpt E&m Estab Low-mod IV Infusion Up To 1 Hour Remicade Per 10 Mg Routine Serum Collection IV Infusion Up To 1 Hour Remicade Per 10 Mg Remicade Per 10 Mg IV Infusion Up To 1 Hour Remicade Per 10 Mg Remicade Per 10 Mg Offic/outpt E&m Estab Mod-hi 2 Colonoscopy Flex; W/bx 1/mx Level Iv-surg Path Gross/micro IV Infusion Up To 1 Hour Remicade Per 10 Mg Remicade Per 10 Mg IV Infusion Up To 1 Hour Remicade Per 10 Mg Remicade Per 10 Mg Routine Serum Collection IV Infusion Up To 1 Hour Remicade Per 10 Mg Remicade Per 10 Mg Established Level 4 IV Infusion Up To 1 Hour Each Additional Hour Remicade Per 10 Mg IV Infusion Up To 1 Hour Each Additional Hour Immuniz Admin; 1/combo Vacc/to Hepatitis B Vac Adult Dose-im Remicade Per 10 Mg IV Infusion Up To 1 Hour Each Additional Hour Remicade Per 10 Mg Sigmoidoscopy Flex; W/bx 1/mx Level Iv-surg Path Gross/micro Immunocytochemistry, Each Antibody Routine Serum Collection Routine Serum Collection Basic Metabolic Panel Routine Serum Collection Comp Metabolic Panel Ferritin Bilirubin; Direct Iron Qasim-29-2021 Iron Binding Capacity Vitamin D; [address]; Hg/pltlt Ct Auto/compl Telephone E&M I 5-10 Min ANASTASIA 021 Virtual Visit E&m Estab Low-mod -25 Mi n Offic/outpt E&m Estab Mod-hi 2 20 Stool Kits Given FilmArray GI Panel Sigmoidoscopy Flex; W/bx 1/mx 0 Level Iv-surg Path Gross/micro 20 Routine Serum Collection Offic/outpt E&m Estab Mod-hi 2 19 Routine Serum Collection Immuniz Admin; 1/combo Vacc/to 19 Hep A-hep B Vaccine Adult Dose Immuniz Admin; 2/> Sing/comb V Pneumococcal Polysacch Vac-fransisco 19 Ferritin Iron Iron Binding Capacity Bld Ct; Hg/pltlt Ct Auto/compl 19 Offic/outpt E&m Estab Mod-hi 2 Immuniz Admin; 1/combo Vacc/to 19 Hep A-hep B Vaccine Adult Dose Immuniz Admin; 2/> Sing/comb V 19 Influenza vaccine-quadrivalent 0.5 ML Oc Stool Kits Given FilmArray GI Panel Stool Kits Given FilmArray GI Panel Offic/outpt E&m New Mod-hi Routine Serum Collection Immuniz Admin; 1/combo Vacc/to [id number]; Hg/pltlt Ct Auto/compl 19 Hepatitis B Surface Antibody Comp Metabolic Panel Vitamin D; 25 Hydroxy Folic Acid; Serum Iron Gg; Iga, Igd, Igg, Igm, Ea Ferritin Hepatitis A Antibody; Igg & Ig Ag-immunoassay; Hep B Surface 9 Hep B Core Antibody Cyanocobalamin Iron Binding Capacity Bilirubin; Direct Advance Directives Directive Yes / No Effective Date File Name No Information Encounters Encounter Description Practice Location Reason(s) For Visit Diagnoses Date Provider Providers Copied on Encounter [facility], [address] [address], [place], [id number], [place] tel:[phone] [facility]fusion [facility] Ulcerative (chronic) proctitis without complications 4 Luis Fernando Vieyra. [address] [place] [address], [id number], [place]. tel:[phone] Referring Provider: Referral Self, USE FOR SELF REFERRALS. [facility], [address] [address], [place], [id number], [place] tel:[phone] Infusion [facility] Ulcerative (chronic) proctitis without complications 4 Justin Bojorquez. [address] [place] [address], [id number], [place]. tel:[phone] [facility], [address] [address], [place], [id number], [place] tel:[phone] Infusion [facility] Ulcerative (chronic) proctitis without complications 0 4 Blake Nesbitt. [address] [place] [address], [id number], [place]. tel:[phone] Referring Provider: Referral Self, USE FOR SELF REFERRALS. [facility], [address] [address], [place], [id number], [place] tel:[phone] Infusion Dist[facility] Ulcerative (chronic) proctitis without complications 4 Justin Bojorquez. [address] [place] [address], [id number], [place]. tel:[phone] [facility], [address] [address], [place], [id number], [place] tel:[phone] Infusion [facility] Ulcerative (chronic) proctitis without complications 4 Diann Alvarez. [address] [facility], [facility] [address], [place], [place], [id number], [place]. tel:[phone] Referring Provider: Referral Self, USE FOR SELF REFERRALS. [facility], [address] [address], [place], [id number], [place] tel:[phone] Infusion [facility] Ulcerative (chronic) proctitis without complications 4 Justin Bojorquez. [address] [facility], [facility] [address], [place], [id number], [place]. tel:[phone] Established Level [address] [facility], [address] [address], [place], [id number], [place] tel:[phone] [facility] GI Symptoms or Concerns (chief complaint) Ulcerative (chronic) proctitis without complications 4 Justin Bojorquez. [address] [facility], [facility] [address], [place], [id number], [place]. tel:[phone] Referring Provider: Referral Self, USE FOR SELF REFERRALS. [facility], [address] [address], [place], [id number], [place] tel:[phone] Infusion [facility]ami Ulcerative (chronic) proctitis without complications 4 Dusty Hood. [address] [facility], [facility] [address], [place], [id number], [place]. tel:[phone] Referring Provider: Referral Self, USE FOR SELF REFERRALS. [facility], [address] [address], [place], [address], [place] tel:[phone] Infusion Jami Ulcerative (chronic) proctitis without complications 4 Vincent Park. [address] [facility], [facility] [address], [place], [place], [id number], [place]. tel:[phone] [facility], [address] [address], [place], [address], [place] tel:[phone] Infusion Dist[facility] Ulcerative (chronic) proctitis without complications 4 Blake Nesbitt. [address] [facility], [address], [id number], [place]. tel:[phone] Referring Provider: Referral Self, USE FOR SELF REFERRALS. [facility], [address] [address], [place], [id number], [place] tel:[phone] Infusion [facility] Ulcerative (chronic) proctitis without complicationsUlce rative (chronic) proctitis with rectal bleeding 4 Vincent Park. [address] [place] [address], [id number], [place]. tel:[phone] [facility], [address] [address], [place], [address], [place] tel:[phone] Infusion Dist[facility] Ulcerative (chronic) proctitis without complications 4 Luis Fernando Vieyra. [address] [facility], [facility] [address], [place], [id number], [place]. tel:[phone] Referring Provider: Referral Self, USE FOR SELF REFERRALS. [facility], [address] [address], [place], [address], [place] tel:[phone] [facility] Ulcerative (chronic) proctitis with rectal bleeding Nov- 4 Vincent Park. [address] [place] [address], [place], [id number], [place]. tel:[phone] [facility], [address] [address], [place], [id number], [place] tel:[phone] Infusion Dist[facility] Ulcerative (chronic) proctitis without complications Nov- 4 Vincent Park. [address] [place] [address], [facility] [address], [place], [id number], [place]. tel:[phone] [facility], [address] [address], [place], [id number], [place] tel:[phone] [facility] Ulcerative (chronic) proctitis without complications Apr-0 4-202 4 Amador Mcmahon. [address] [place] [address], [address], [id number], [place]. tel:[phone] Referring Provider: Referral Self, USE FOR SELF REFERRALS. [facility], [address] [address], [place], [id number], [place] tel:[phone] [facility] Ulcerative (chronic) proctitis with rectal bleeding Mar-2 2-202 4 Vincent Park. [address] [place] [address], [facility] [address], [place], [id number], [place]. tel:[phone] [facility], [address] [address], [place], [id number], [place] tel:[phone] [facility] Ulcerative (chronic) proctitis with rectal bleedingUlcerativ e (chronic) proctitis without complications Mar-0 5- 4 Blake Nesbitt. [address] [facility], [address], [id number], [place]. tel:[phone] Referring Provider: Referral Self, USE FOR SELF REFERRALS. [facility], [address] [address], [place], [id number], [place] tel:[phone] [facility] Ulcerative (chronic) proctitis with rectal bleeding Mar-0 - 4 Vincent Park. [address] [place] [address], [facility] [address], [place], [id number], [place]. tel:[phone] Referring Provider: Referral Self, USE FOR SELF REFERRALS. [facility], [address] [address], [place], [id number], [place] tel:[phone] [facility] Ulcerative (chronic) proctitis with rectal bleeding Mar-0 -202 4 Vincent Park. [address] [place] [address], [facility] [address], [place], [id number], [place]. tel:[phone] [facility], [address] [address], [place], [id number], [place] tel:[phone] Infusion Dist[facility] Ulcerative (chronic) proctitis without complications 4 Vincent Park. [address] [place] [address], [id number], [place]. tel:[phone] [facility], [address] [address], [place], [address], [place] tel:[phone] Infusion Dist[facility] Ulcerative (chronic) proctitis without complications 4 Chun Hampton. [address] [place] [address], [id number], [place]. tel:[phone] Referring Provider: Referral Self, USE FOR SELF REFERRALS. [facility], [address] [address], [place], [address], [place] tel:[phone] Infusion Dist[facility] Ulcerative (chronic) proctitis without complications 4 Vincent Park. [address] [place] [address], [id number], [place]. tel:[phone] [facility], [address] [address], [place], [id number], [place] tel:[phone] [facility] Ulcerative (chronic) proctitis without complications 4 Kenton Gonzalez. [address] [place] [address], [id number], [place]. tel:[phone] Referring Provider: Referral Self, USE FOR SELF REFERRALS. [facility], [address] [address], [place], [address], [place] tel:[phone] [facility] Ulcerative (chronic) proctitis without complications 3 Vincent Park. [address] [place] [address], [id number], [place]. tel:[phone] [facility], [address] [address], [place], [id number], [place] tel:[phone] [facility] Ulcerative (chronic) proctitis without complications 3 Dusty Hood. [address], [id number], [place]. tel:[phone] Referring Provider: Referral Self, USE FOR SELF REFERRALS. [facility], [address] [address], [place], [address], [place] tel:[phone] [facility] Ulcerative (chronic) proctitis without complications 3 Vincent Park. [address], [id number], [place]. [phone] [facility], [address] [address], [place], [address], [place] tel:[phone] [facility] Ulcerative (chronic) proctitis without complications 3 Vincent Park. [address] [place] [address], [id number], [place]. tel:[phone] [facility], [address] [address], [place], [address], [place] tel:[phone] [facility] Ulcerative (chronic) proctitis without complications 3 Diann Alvarez. [address], [id number], [place]. tel:[phone] Referring Provider: Referral Self, USE FOR SELF REFERRALS. [facility], [address] [address], [place], [address], [place] tel:[phone] [facility] Ulcerative (chronic) proctitis without complications 3 Vincent Park. [address] [place] [address], [id number], [place]. tel:[phone] [facility], [address] [address], [place], [address], [place] tel:[phone] [facility] Ulcerative (chronic) proctitis without complications 3 Blake Nesbitt. [address] [place] [address], [id number], [place]. tel:[phone] Referring Provider: Referral Self, USE FOR SELF REFERRALS. [facility], [address] [address], [place], [id number], [place] tel:[phone] [facility] Ulcerative (chronic) proctitis with rectal bleeding 3 Vincent Park. [address] [place] [address], [id number], [place]. tel:[phone] Referring Provider: Referral Self, USE FOR SELF REFERRALS. [facility], [address] [address], [place], [id number], [place] tel:[phone] [facility] Ulcerative (chronic) proctitis without complications 3 Vincent Park. [address] [place] [address], [id number], [place]. tel:[phone] Offic/outpt E&m Estab Mod-hi [address] [facility], [address] [address], [place], [id number], [place] tel:[phone] [facility] GI Symptoms or Concerns (chief complaint) Ulcerative (chronic) proctitis without complicationsMult iple joint painPersonal history of colonic polyps 3 Vincent Park. [address] [place] [address], [id number], [place]. tel:[phone] Referring Provider: Referral Self, USE FOR SELF REFERRALS. [facility], [address] [address], [place], [id number], [place] tel:[phone] [facility] Ulcerative (chronic) proctitis without complications 3 Malick Camacho. [address] [place] [address], [id number], [place]. tel:[phone] Referring Provider: Referral Self, USE FOR SELF REFERRALS. [facility], [address] [address], [place], [id number], [place] tel:[phone] [facility] Ulcerative (chronic) proctitis without complications 3 Vincent Park. [address], [id number], [place]. tel:[phone] [facility], [address] [address], [place], [address], [place] tel:[phone] [facility] Ulcerative (chronic) proctitis without complications 3 Olena RONY Juliette. [address], [id number], [place]. tel:[phone] [facility], [address] [address], [place], [id number], [place] tel:[phone] [facility] Ulcerative (chronic) proctitis without complications 3 Tevin Russell. [facility] [address], [id number], [place]. tel:[phone] Referring Provider: Referral Self, USE FOR SELF REFERRALS. [facility], [address] [address], [place], [address], [place] tel:[phone] [facility] Arthralgia, unspecified joint 3 Vincent Park. [address], [id number], [place]. tel:[phone] Referring Provider: Referral Self, USE FOR SELF REFERRALS. [facility], [address] [address], [place], [address], [place] tel:[phone] [facility] Ulcerative (chronic) proctitis without complications 3 Vincent Park. [address], [id number], [place]. tel:[phone] [facility], [address] [address], [place], [address], [place] tel:[phone] [facility] Ulcerative (chronic) proctitis without complications 3 Kenton Gonzalez. [address] [facility], [facility] [address], [place], [address], [place]. tel:[phone] Referring Provider: Referral Self, USE FOR SELF REFERRALS. [facility], [address] [address], [place], [address], [place] tel:[phone] [facility] Ulcerative (chronic) proctitis without complications 3 Vincent Park. [address] [facility] [address], [place], [id number], [place]. tel:[phone] [facility], [address] [address], [place], [address], [place] tel:[phone] [facility]fusion [facility] Ulcerative (chronic) proctitis without complications 3 Chun Hampton. [facility] [address], [id number], [place]. tel:[phone] Referring Provider: Referral Self, USE FOR SELF REFERRALS. [facility], [address] [address], [place], [id number], [place] tel:[phone] [facility] Ulcerative (chronic) proctitis with rectal bleeding 3 Vincent Park. [facility], [address], [id number], [place]. tel:[phone] Referring Provider: Referral Self, USE FOR SELF REFERRALS. [facility], [address] [address], [place], [address], [place] tel:[phone] [facility] Ulcerative (chronic) proctitis without complications 3 Vincent Park. [address] [place] [address], [id number], [place]. tel:[phone] [facility], [address] [address], [place], [id number], [place] tel:[phone] [facility] Ulcerative (chronic) proctitis without complications 3 Chey Foster. [facility], [id number], [place]. tel:[phone] Referring Provider: Referral Self, USE FOR SELF REFERRALS. [facility], [address] [address], [place], [id number], [place] tel:[phone] [facility] Ulcerative (chronic) proctitis without complications 3 Vincent Park. [address] [place] [address], [id number], [place]. tel:[phone] [facility], [address] [address], [place], [address], [place] tel:[phone] [facility] Ulcerative (chronic) proctitis without complications 3 Gilbert Tello. [address] [place] [address], [id number], [place]. tel:[phone] Referring Provider: Referral Self, USE FOR SELF REFERRALS. [facility], [address] [address], [place], [address], [place] tel:[phone] [facility] Ulcerative (chronic) proctitis without complications 2 Vincent Park. [address] [place] [address], [id number], [place]. tel:[phone] [facility], [address] [address], [place], [address], [place] tel:[phone] [facility] Ulcerative (chronic) proctitis without complications 2 Malick Camacho. [address] [place] [address], [id number], [place]. tel:[phone] Referring Provider: Referral Self, USE FOR SELF REFERRALS. [facility], [address] [address], [place], [address], [place] tel:[phone] [facility] Ulcerative (chronic) proctitis without complications 2 Vincent Park. [address] [place] [address], [id number], [place]. tel:[phone] Offic/outpt E&m Estab Low-mod [facility], [address] [address], [place], [id number], [place] tel:[phone] [facility] GI Symptoms or Concerns (chief complaint) Ulcerative (chronic) proctitis without complicationsPers onal history of colonic polyps 2 Vincent Park. [address] [place] [address], [address], [id number], [place]. tel:[phone] Referring Provider: Referral Self, USE FOR SELF REFERRALS. [facility], [address] [address], [place], [id number], [place] tel:[phone] [facility] Ulcerative (chronic) proctitis without complications 2 Diann Alvarez. [address] [place] [address], [address], [id number], [place]. tel:[phone] Referring Provider: Referral Self, USE FOR SELF REFERRALS. [facility], [address] [address], [place], [id number], [place] tel:[phone] [facility] Ulcerative (chronic) proctitis with rectal bleeding 2 Vincent Park. [address] [place] [address], [address], [id number], [place]. tel:[phone] Referring Provider: Referral Self, USE FOR SELF REFERRALS. [facility], [address] [address], [place], [id number], [place] tel:[phone] [facility] Ulcerative (chronic) proctitis without complications 2 Tevin Russell. [address] [place] [address], [address], [id number], [place]. tel:[phone] Referring Provider: Referral Self, USE FOR SELF REFERRALS. [facility], [address] [address], [place], [id number], [place] tel:[phone] [facility] Ulcerative (chronic) proctitis without complications 2 Diann Alvarez. [address] [facility], [facility] [address], [place], [id number], [place]. tel:[phone] Referring Provider: Referral Self, USE FOR SELF REFERRALS. Offic/outpt E&m Estab Mod-hi [address] [facility], [address] [address], [place], [place], [address], [place] tel:[phone] [facility] GI Symptoms or Concerns (chief complaint) Ulcerative (chronic) proctitis without complicationsRect al urgencyFrequent bowel movementsPersonal history of colonic polyps 2 Vincent Park. [address] [place] [address], [id number], [place]. tel:[phone] Referring Provider: Referral Self, USE FOR SELF REFERRALS. [facility], [address] [address], [place], [place], [address], [place] tel:[phone] [facility] GI Symptoms or Concerns (chief complaint) Colorectal polyp detected on colonoscopyPerson al history of colonic polypsUlcerative proctitis without complicationBenig n neoplasm of transverse colonUlcerative (chronic) proctitis without complicationsBeni gn neoplasm of transverse colonPersonal history of colonic polyps 2 Vincent Park. [address] [place] [address], [id number], [place]. tel:[phone] Referring Provider: Ben Mendoza, [address] [place] [address], [address]. tel:[phone] [facility], [address] [address], [place], [place], [id number], [place] tel:[phone] [facility] Diarrhea, unspecified 2 Vincent Park. [address], [id number], [place]. tel:[phone] [facility], [address] [address], [place], [place], [id number], [place] tel:[phone] [facility] Ulcerative (chronic) proctitis with rectal bleeding 2 Chey Foster. 3001 [facility], [address], [id number], [place]. tel:[phone] Referring Provider: Referral Self, USE FOR SELF REFERRALS. [facility], [address] [address], [place], [id number], [place] tel:[phone] [facility] [place] Ulcerative (chronic) proctitis with rectal bleeding 2 Tevin Russell. 3001 [facility], [address], [id number], [place]. tel:[phone] Referring Provider: Referral Self, USE FOR SELF REFERRALS. [facility], [address] [address], [place], [id number], [place] tel:[phone] [facility] Ulcerative (chronic) proctitis with rectal bleeding 2 Vincent Park. [address] [place] [address], [id number], [place]. tel:[phone] Referring Provider: Referral Self, USE FOR SELF REFERRALS. [facility], [address] [address], [place], [id number], [place] tel:[phone] [facility] [place] Ulcerative (chronic) proctitis with rectal bleeding 2 Tyrese Lyman. [facility]1 [facility], [address], [id number], [place]. tel:[phone] Referring Provider: Referral Self, USE FOR SELF REFERRALS. Established Level [address] [facility], [address] [address], [place], [id number], [place] tel:[phone] [facility] GI Symptoms or Concerns (chief complaint) Ulcerative (chronic) proctitis without complicationsPers onal history of colonic polyps 2 Vincent Park. [address] [place] [address], [address], [id number], [place]. tel:[phone] Referring Provider: Referral Self, USE FOR SELF REFERRALS. [facility], [address] [address], [place], [id number], [place] tel:[phone] [facility]fusion [place] Ulcerative (chronic) proctitis with rectal bleeding Dec-2 0- 1 Chey Foster. 3001 [facility], [facility] [address], [place], [id number], [place]. tel:[phone] Referring Provider: Referral Self, USE FOR SELF REFERRALS. [facility], [address] [address], [place], [id number], [place] tel:[phone] [facility] [place] Ulcerative (chronic) proctitis with rectal bleeding Jun-2 2 1 Chey Foster. [facility], [facility] [address], [place], [id number], [place]. tel:[phone] Referring Provider: Referral Self, USE FOR SELF REFERRALS. [facility], [address] [address], [place], [id number], [place] tel:[phone] [facility] Tingling 1 Vincent Park. 3001 [facility], [facility] 500, [place], [place], [id number], [place]. tel:[phone] [facility], [address] [address], [place], [id number], [place] tel:[phone] Infusion [place] Ulcerative (chronic) proctitis with rectal bleeding Nov-0 8 1 Orquidea Kruger. [address] [place] [address], [facility] 500, [place], [place], [id number], [place]. tel:[phone] Referring Provider: Slick Sánchez, [address]001 [facility] [address], [place], [address] . tel:[phone] [facility], [address] [address], [place], [id number], [place] tel:[phone] [facility] Ulcerative (chronic) proctitis with rectal bleeding Nov0 2 1 Vincent Park. [address] [place] [address], [facility] [address], [place], [id number], [place]. tel: [phone] [facility], [address] [address], [place], [id number], [place] tel:[phone] [facility] No Information 1 Vincent Park. [address]001 [facility], [address], [id number], [place]. tel: [phone] [facility], [address] [address], [place], [id number], [place] tel:[phone] [facility] GI Symptoms or Concerns (chief complaint) Diarrhea, unspecifiedUlcera tive (chronic) proctitis with rectal bleedingUlcerativ e (chronic) proctitis with rectal bleedingUlcerativ e (chronic) proctitis with rectal bleeding 1 Vincent Park. 3001 [facility], [address], [id number], [place]. tel:[phone] Referring Provider: Referral Self, USE FOR SELF REFERRALS. [facility], [address] [address], [place], [id number], [place] tel:[phone] [facility] No Information 1 [place] Park. 3001 [facility], [address], [id number], [place]. tel:[phone] [facility], [address] [address], [place], [id number], [place] tel:[phone] [facility] Ulcerative (chronic) proctitis with rectal bleeding 1 [place] Park. 3001 [facility], [address], [id number], [place]. [phone] [facility], [address] [address], [place], [id number], [place] tel:[phone] [facility] Ulcerative (chronic) proctitis without complications 0 1 Vincent Park. [facility]1 [facility], [address], [id number], [place]. tel:[phone] Referring Provider: Referral Self, USE FOR SELF REFERRALS. [facility], [address] [address], [place], [id number], [place] tel:[phone] [facility] Ulcerative proctitis without complication 1 Vincent [place]. [address] [place] [address], [id number], [place]. tel:[phone] [facility], [address] [address], [place], [id number], [place] tel:[phone] [facility] Ulcerative proctitis without complicationUlcer ative (chronic) proctitis with rectal bleeding 1 Vincent Park. [address] [place] [address], [id number], [place]. tel:[phone] Referring Provider: Referral Self, USE FOR SELF REFERRALS. Telephone E&M I 5-[address] [facility], [address] [address], [place], [id number], [place] tel:[phone] [facility] GI Symptoms or Concerns (chief complaint) Ulcerative (chronic) proctitis with rectal bleedingPersonal history of colonic polypsHemochromat osis carrier 1 Vincent Park. [address] [place] [address], [id number], [place]. tel:[phone] Referring Provider: Referral Self, USE FOR SELF REFERRALS. [facility], [address] [address], [place], [id number], [place] tel:[phone] [facility] No Information 1 Vincent Park. [address] [place] [address], [id number], [place]. tel:[phone] Virtual Visit E&m Estab Low-mod 15-[address] [facility], [address] [address], [place], [id number], [place] tel:[phone] [facility] GI Symptoms or Concerns (chief complaint) Ulcerative proctitis without complicationPerso nal history of colonic polypsHemochromat osis carrier 0 Vincent THOMPSON med. 3001 [facility], [address], [id number], [place]. tel:[phone] Referring Provider: Ben Mendoza, [address] [place] [address], [address]. tel:[phone] Offic/outpt E&m Estab Mod-hi [address] [facility], [address] [address], [place], [id number], [place] tel:[phone] [facility] GI Symptoms or Concerns (chief complaint) Ulcerative proctitis without complicationLower abdominal painDiarrhea, unspecifiedConsti pation, unspecified constipation typePersonal history of colonic polypsHemochromat osis carrierChest pain, unspecified type 0 Vincent THOMPSON med. [address], [id number], [place]. tel:[phone] Referring Provider: Referral Self, USE FOR SELF REFERRALS. [facility], [address] [address], [place], [id number], [place] tel:[phone] [facility] Abnormal iron saturation 0 Vincent Fordemed. 3001 [facility], [address], [id number], [place]. tel:[phone] [facility], [address] [address], [place], [id number], [place] tel:[phone] [facility] Diarrhea, unspecified 0 Vincent THOMPSON med. [address], [id number], [place]. tel:[phone] Referring Provider: Referral Self, USE FOR SELF REFERRALS. [facility], [address] [address], [place], [id number], [place] tel:[phone] [facility] Ulcerative (chronic) proctitis with rectal bleedingDiarrhea, unspecified typeUlcerative (chronic) proctitis with rectal bleeding 0 Vincent Park. [facility]1 [facility], [address], [id number], [place]. tel:[phone] Referring Provider: Referral Self, USE FOR SELF REFERRALS. [facility], [address] [address], [place], [id number], [place] tel:[phone] [facility] Abnormal level of blood mineral 0 Vincent Park. [address] [place] [address], [address], [id number], [place]. tel:[phone] Referring Provider: Referral Self, USE FOR SELF REFERRALS. [facility], [address] [address], [place], [id number], [place] tel:[phone] [facility] No Information 9 Ryan Robbins. [address] [place] [address], [id number], [place]. tel:[phone] [facility], [address] [address], [place], [id number], [place] tel:[phone] [facility] Abnormal iron saturation 9 Vincent Park. [address] [place] [address], [address], [id number], [place]. tel:[phone] Offic/outpt E&m Estab Mod-hi [address] [facility], [address] [address], [place], [id number], [place] tel:[phone] [facility] GI Symptoms or Concerns (chief complaint) Ulcerative proctitis with rectal bleedingLower abdominal painRectal urgencyPersonal history of colonic polypsChest pain, unspecified typePalpitations 9 Vincent Park. [address] [place] [address], [id number], [place]. tel:[phone] Referring Provider: Xavier Kaur MD, [address] [place] [address], [facility] [place], [address] . tel:[phone] [facility], [address] [address], [place], [id number], [place] tel:[phone] [facility] No Information 9 Vincent Park. [address] [facility], [address], [id number], [place]. [phone] Offic/outpt E&m Estab Mod-hi [address] [facility], [address] [address], [place], [id number], [place] tel:[phone] [facility] GI Symptoms or Concerns (chief complaint) Ulcerative proctitis without complicationLoose stoolsPersonal history of colonic polypsRectal urgency 9 Vincent Park. 3[address] [facility], [address], [id number], [place]. [phone] Referring Provider: Referral Self, USE FOR SELF REFERRALS. [facility], [address] [address], [place], [id number], [place] tel:[phone] [facility] Diarrhea, unspecified type 9 Vincent Park. [address], [id number], [place]. tel:[phone] [facility], [address] [address], [place], [id number], [place] tel:[phone] [facility] No Information 9 Vincent Park. [address] [place] [address], [id number], [place]. [phone] [facility], [address] [address], [place], [id number], [place] tel:[phone] [facility] Other fecal abnormalities 9 Vincent Park. [address] [place] [address], [id number], [place]. tel:[phone] Referring Provider: Callie Seals MD, [address] [place], [address]. tel:[phone] Offic/outpt E&m [place] [facility], [address] [address], [place], [place], [id number], tel:[phone] [facility] GI Symptoms or Concerns (chief complaint) Ulcerative proctitis with rectal bleedingLoose stoolsLower abdominal painRectal urgencyPersonal history of colonic polypsFever, unspecified fever cause 0 9 Vincent THOMPSON [facility]. 3001 [facility] [address], [place], [id number], [place]. tel:[phone] Referring Provider: Callie Seals MD, [address] [place], [address]. tel:[phone] Family History Family Member Type Diagnosis Age At Onset Mother Problem (finding) ulcerative colitis Mother Problem (finding) Crohn's disease Mother Problem (finding) stomach cancer Mother Problem (finding) Colon polyps Mother Problem (finding) gallbladder disease Immunizations Vaccine Date Status Comments Engerix-B administered Note: [facility] bi-d irectional interface ; Source: Other Registry Hep B, adult, 3 dose administered Source: New Immunization Record Afluria Qd administered Note: M [facility] bi-directional interface ; Source: Other Registry Afluria Qd administered Note: M [facility] bi-directional interface ; Source: Other Registry Twinrix administered Note: [facility] bi-d irectional interface ; Source: Other Registry Pneumovax 23 administered Note: [facility] bi-d irectional interface ; Source: Other Registry Hep A and Hep B administered Source: New Immunization Record Pneumo (2 yrs or older)(PPV) administered Source: New Immunization Record Afluria Qd administered Note: M [facility] bi-directional interface ; Source: Other Registry Afluria Qd administered Note: M [facility] bi-directional interface ; Source: Other Registry Twinrix administered Note: [facility] bi-d irectional interface ; Source: Other Registry Fluzone Quad 6mo or older administered Source: New Immuniza tion Record Hep A and Hep B administered Source: New Immunization Record Prevnar administered Note: [facility] bi-d irectional interface ; Source: Other Registry Pneumococcal conjugate PCV 13 administere d Source: New Immunization Record tetanus toxoid, reduced diphtheria toxoid, and acellular pertussis vaccine, adsorbed administered Note: [facility] bi-direct ional interface ; Source: Other Registry Payers Payer name Insurance type Covered libertarian ID Authoriza tion(s) [employer] [place] BL [id number] Blue Plus 2023 [place] [employer] BL [id number] [employer] [place] BL [id number] [employer] CI [id number] [employer] CI [id number] [employer] CI [id number] [employer] CI [id number] [facility] CI [id number] Social History Type Description Quantity Date Captured Comments Alcohol Use Details Unknown Caffeine Use Details Unknown Tobacco Use Status No Information Smoking Status No Information Sex Male Vital Signs Date / Time: Height Weight BMI Pulse Rate Blood Pressure Temperature Respiratory Rate Body Surface Area Head Circumference Head Circ. Percentile Wt./[place]. Percentile BMI percentile Pulse Ox Inhaled Ox 12:50 PM 76 /min 99/62 mm[Hg] 98.80 F 16 /min 1:25 PM 73.923 kg (163.00 lbs) 2:12 PM 73.923 kg (163.00 lbs) 84 /min 115/58 mm[Hg] 97.60 F 16 /min 2:26 PM 68 /min 100/62 mm[Hg] 98.70 F 16 /min Chief Complaint And Reason For Visit No Information Reason For Referral Reason For Referral No Information Plan Of Treatment Date Type Action Status Goal Influenza. Due on due Goal DEXA Bone Density Study. Due on due Goal Vitamin D, 25-Hydroxy. Due o n due Goal Prevnar 20. Due on due Goal Hep B Vaccine (1st) due Goal Dermatology - Skin Screening . Due on due Goal Hep A Vaccine (1st) due Goal Tdap. Due on due Goal Hep A Vaccine (2nd) due Goal Hep B Vaccine (2nd) due Goal Smoking status. Due on due Goal Colonoscopy. Due on due Goal Colonoscopy. Due on due Goal Hep A Vaccine (1st) due Goal Prevnar 20. Due on due Goal Tdap. Due on due Goal Hep A Vaccine (2nd) due Goal Influenza. Due on due Goal DEXA Bone Density Study. Due on due Goal Dermatology - Skin Screening . Due on due Goal Hep B Vaccine (2nd) due Goal Hep B Vaccine (1st) due Goal Vitamin D, 25-Hydroxy. Due o n due Goal Smoking status. Due on due Goal Prevnar 20. Due on due Goal Influenza. Due on due Goal Colonoscopy. Due on 023 due Goal Hep A Vaccine (2nd) due Goal Hep B Vaccine (2nd) due Goal Hep A Vaccine (1st) due Goal Hep B Vaccine (1st) due Goal Tdap. Due on due Goal Vitamin D, 25-Hydroxy. Due o n due Goal DEXA Bone Density Study. Due on due Goal Dermatology - Skin Screening . Due on due Goal Smoking status. Due on due Goal Hep B Vaccine (1st) due Goal Influenza. Due on due Goal Hep A Vaccine (1st) due Goal Hep B Vaccine (2nd) due Goal Tdap. Due on due Goal Vitamin D, 25-Hydroxy. Due o n due Goal Colonoscopy. Due on 023 due Goal Dermatology - Skin Screening . Due on due Goal Smoking status. Due on due Goal Prevnar 20. Due on due Goal Hep A Vaccine (2nd) due Goal DEXA Bone Density Study. Due on due Goal Prevnar 20. Due on due Goal Tdap. Due on due Goal Hep B Vaccine (1st) due Goal Hep A Vaccine (2nd) due Goal Smoking status. Due on due Goal Dermatology - Skin Screening . Due on due Goal Hep B Vaccine (2nd) due Goal Influenza. Due on due Goal Hep A Vaccine (1st) due Goal DEXA Bone Density Study. Due on due Goal Colonoscopy. Due on due Goal Vitamin D, 25-Hydroxy. Due o n due Goal Hep A Vaccine (1st) due Goal Hep B Vaccine (2nd) due Goal Prevnar 20. Due on due Goal Smoking status. Due on due Goal Colonoscopy. Due on due Goal Dermatology - Skin Screening . Due on due Goal Tdap. Due on due Goal Influenza. Due on due Goal Hep A Vaccine (2nd) due Goal DEXA Bone Density Study. Due on due Goal Vitamin D, 25-Hydroxy. Due o n due Goal Hep B Vaccine (1st) due Goal Dermatology - Skin Screening . Due on due Goal Hep B Vaccine (2nd) due Goal Prevnar 20. Due on due Goal Hep A Vaccine (2nd) due Goal Colonoscopy. Due on due Goal Hep A Vaccine (1st) due Goal Tdap. Due on due Goal Vitamin D, 25-Hydroxy. Due o n due Goal DEXA Bone Density Study. Due on due Goal Smoking status. Due on due Goal Influenza. Due on due Goal Hep B Vaccine (1st) due Goal Dermatology - Skin Screening . Due on due Goal Smoking status. Due on due Goal Vitamin D, 25-Hydroxy. Due o n due Goal Colonoscopy. Due on 023 due Goal Hep B Vaccine (1st) due Goal Prevnar 20. Due on 24 due Goal Tdap. Due on due Goal Hep B Vaccine (2nd) due Goal Influenza. Due on due Goal Hep A Vaccine (2nd) due Goal DEXA Bone Density Study. Due on due Goal Hep A Vaccine (1st) due Goal Prevnar 20. Due on due Goal Vitamin D, 25-Hydroxy. Due o n due Goal Tdap. Due on due Goal Colonoscopy. Due on 023 due Goal Dermatology - Skin Screening . Due on due Goal Hep B Vaccine (1st) due Goal Smoking status. Due on due Goal DEXA Bone Density Study. Due on due Goal Hep B Vaccine (2nd) due Goal Hep A Vaccine (2nd) due Goal Hep A Vaccine (1st) due Goal Influenza. Due on due Referral Ordered: follow-up visit with Xavier Kaur MD in 1 Year or by 02/22/2025 Appointment date/timeframe: 1 Year ordered Referral Ordered: referred to Rheumatology joint pain MICHAEL Appointment date/timeframe: MICHAEL ordered Referral Ordered: referred to Neurology numbness, tingling, dizziness ordered Referral Ordered: referred to medical genetics 2 colon adenomas age 38 (related to Personal history of colonic polyps) ordered Referral Ordered: Iron/TIBC Appointment date/timeframe: 02/18/2021 ordered Referral Ordered: Vitamin D, 25-Hydroxy Appointment date/timeframe: 02/18/2021 ordered Referral Ordered: Hepatic Function Panel Appointment date/timeframe: 02/18/2021 ordered Referral Ordered: BMP Appointment date/timeframe: 02/18/2021 ordered Referral Ordered: CBC w/diff Appointment date/timeframe: 02/18/2021 ordered Referral Ordered: referred to Hematology elevated iron sat, 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 Appointment date/timeframe: 02/18/2021 ordered Referral Ordered: referred to medical genetics 2 colon adenomas age 38 ordered Referral Ordered: follow-up visit 6 Months Appointment date/timeframe: 6 Months ordered Referral Ordered: referred to Hematology iron sat 54%, 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 ordered Referral Ordered: Hemochromatosis, DNA Gene Test Appointment date/timeframe: -today ordered Referral Ordered: C difficile Toxin Gene MARIO Appointment date/timeframe: 05/16/2019 ordered Referral Ordered: referred to medical genetics 2 colon adenomas at age 38 (related to Personal history of colonic polyps) ordered Referral Ordered: Colonoscopy Appointment date/timeframe: 04/11/2022 ordered Referral Ordered: referred to medical genetics 2 colon adenomas at age 38 ordered Referral Ordered: Ferritin Appointment date/timeframe: -today ordered Referral Ordered: CT Enterography WITH Contrast Appointment date/timeframe: 04/25/2019 ordered Appointment Omer Moreno BOOKED Appointment Omer Moreno BOOKED History Of Present Illness Encounter Date Complaint History Of Prese nt Illness GI Symptoms or Concerns This is a very pleasant 43-year-old male I am seeing today in followup by a virtual visit. He has a history of ulcerative proctitis diagnosed in 2019. Initially, he was on balsalazide and Canasa, but with persistent symptoms, Remicade was started in June 2021. Colonoscopy in 2021 showed 1 tubular adenoma, but the colon appeared normal with normal biopsies. Because of joint pain, his infusion frequency was decreased to every 6 weeks and now every 4 weeks.He reports today that since doing the Remicade infusions every 4 weeks, he has felt excellent. He has not had any joint pain and no GI symptoms. No abdominal pain, nausea, or vomiting. His stools are formed and without hematochezia. GI Symptoms or Concerns Patient is a 42-year-old male who had an in-person visit today for 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 He was initially on balsalazide and Canasa but continued to have GI symptoms so was eventually started on Remicade in June 2021. He is currently on Remicade 5 milligrams/kilogram IV every 6 weeks. He is also on balsalazide 5 pills in the morning and 4 pills in the evening. His last colonoscopy was in January of 2022 and 1 tubular adenoma was removed. Colon appeared otherwise normal with normal colon biopsies. His Remicade was increased to every 6 weeks because he was having some GI symptoms for 2 weeks before his Remicade infusion was due. Reports that for the last 2 Remicade infusions he had some elbow pain and then some elbow and shoulder pain a few days before his infusion was due. He reports the last time this occurred he went to the ER where he was given some OxyContin. He reports he had some labs done in the ER that were reportedly unrevealing. He reports his joint pain resolved within a day or so after he received his Remicade infusion. He was referred to a credit risk review officer for further evaluation of his joint pain but this appointment is not until June. I reviewed a CBC and LFTs from October and these were unrevealing. Patient denies any GI symptoms or joint pain at this time. GI Symptoms or Concerns The cody ent is a 41-year-old male who had an in-person visit today for follow-up of ulcerative proctitis diagnosed in February 2019. He was last seen in GI Clinic in January 2022. He was on balsalazide and Canasa, but continued to have active proctitis symptoms. He has been started on Remicade in June 2021. He was on Remicade 5 mg/kg IV every 8 weeks as well as balsalazide 5 tablets in the morning and 4 tablets in the evening. He had a colonoscopy in January that revealed 1 tubular adenoma from the transverse colon that was removed and biopsies were negative for active disease. The patient however reported that approximately 2 weeks before his Remicade infusions, he would have frequent bowel movements and rectal urgency. We increased his Remicade dosing frequency to 5 mg/kg IV every 6 weeks starting in February and the patient reports that he has felt very well since that time and has not had any significant GI symptoms since increasing the Remicade dosing frequency. I reviewed his CBC GI Symptoms or Concerns The cody ent is a 41-year-old male who had in-person visit today for followup of ulcerative proctitis diagnosed in February 2019. Patient was previously on balsalazide and Canasa suppository, but continued to have symptoms. Eventually, was started on Remicade in June 2021. He is currently on Remicade 5 mg/kg IV every 8 weeks. He continues on balsalazide 5 tablets in the morning and 4 tablets in the evening. He had a recent colonoscopy on February 10 that revealed 1 tubular adenoma from the transverse colon that was removed as well as some rectal scarring and the remainder of the colon and TI appeared normal. Biopsies of the rectum at that time revealed inactive ulcerative colitis. The patient reports that approximately 5 to 6 weeks after each Remicade infusion, he starts developing significant rectal urgency where it sounds he cannot get to the bathroom in time as well as more frequent bowel movements. He reports these symptoms resolved almost immediately after his Remicade infusion. He denies GI symptoms during other times of his Remicade infusion cycle. GI Symptoms or Concerns GI Symptoms or Concerns Patient is a 41-year-old male who had a telephone visit performed today for followup of ulcerative proctitis diagnosed at an outside hospital in February 2019. He was previously on balsalazide 5 tablets in the morning and 4 tablets in the evening as well as Canasa suppositories. He continued to have significant GI symptoms, so he was eventually started on Remicade on June 30, 2021. He received his third Remicade loading dose on August 11. He reports he has had significant improvement, especially after his most recent Remicade dose in July. He denies any bleeding or diarrhea, and his mucus has significantly decreased. 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 The cleaning laborer said no further evaluation or treatment was needed at this time. The patient has not yet seen the medical genetics counselor due to having a precancerous polyp at age 38. They will work on getting this scheduled soon. The pat GI Symptoms or Concerns GI Symptoms or Concerns GI Symptoms or Concerns The cody ent is a 40-year-old male who had a telephone visit performed today for followup of ulcerative proctitis diagnosed at an outside hospital in February 2019. The patient was last seen in GI Clinic in November 2019. He has been on balsalazide 5 in the morning and 4 in the evening. He was doing well at his last GI visit over a year ago. He reports over the past 1 or 2 months he has had some increase in rectal bleeding and mucus discharge. He denies any significant abdominal pain or diarrhea. He reports he started taking his Canasa suppositories about a week and a half ago and is already feeling better with regard to the rectal bleeding and mucus discharge. He has continued to take balsalazide 5 tablets in the morning and 4 tablets in the evening. 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 I had referred him to a cleaning laborer, but he has not yet seen them. He did see his manager restaurant for intermittent chest pain and palpitat GI Symptoms or Concerns Patient is a 39-year-old male, who had a virtual visit performed today for followup of ulcerative proctitis. Patient was last seen in GI Clinic on September 04, 2019. He was diagnosed with ulcerative proctitis in an outside facility in February 2019. Patient is currently on balsalazide 5 tablets in the morning and 4 times in the evening. He uses Canasa as needed. He has not needed to use much Canasa since his last GI Clinic visit in August. He reports that he has overall been doing quite well. He reports he feels well and denies any significant GI symptoms. He reports 1 formed bowel movement every 3 to 4 days. He denies any abdominal pain or rectal bleeding or rectal urgency. He only has used Levsin occasionally and has not needed to use any MiraLax. He has not yet had a chance to see the medical genetics counselor due to his history of polyps at a young age or the manager restaurant for his intermittent chest pain or the cleaning laborer for his elevated transferrin saturation and C282Y mu GI Symptoms or Concerns Patient is a 39-year-old male who is here for followup of ulcerative proctitis diagnosed at an outside hospital in February 2019. Patient was last seen in GI clinic on August 04, 2019. He also had 2 colon adenomas removed at his February 2019 colonoscopy as well. He has previously treated with prednisone and then Rowasa enemas and eventually balsalazide. He did have enteropathogenic E. coli infection in the past that was treated with Cipro. His last GI clinic visit, patient was having some persistent GI symptoms. We proceeded with a flexible sigmoidoscopy that was done on August 24, 2019, and this revealed minimal patchy erythema in the distal rectum, but otherwise normal appearing rectum and sigmoid colon. Biopsies of the distal rectum revealed inactive ulcerative colitis and biopsies of the proximal rectum and sigmoid were normal. 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 He also had 2 colon adenomas were removed at that time. He was treated with previous prednisone and Rowasa previously. He was subsequently started on balsalazide 5 tablets in the morning and 4 tablets in the evening. He was also found to have enteropathogenic E. coli in his stool, which was treated with 1 week of ciprofloxacin. A CT enterography revealed some proctitis, but otherwise normal. In his last GI Clinic visit, we prescribed steroid suppositories for 1 week followed by Florian. He was also to continue on balsalazide. The patient reports overall he was doing better when he was on both balsalazide and on suppositories, but over the past 1 or 2 weeks he has had more rectal urgency and lower abdominal pain as well as sensation of constipation as well as some intermittent rectal bleeding. He reports he was seen in the ER on July 10 where they di GI Symptoms or Concerns Patient is a 38-year-old male who is here for followup of ulcerative proctitis diagnosed after a colonoscopy at an outside facility in February 2019. He also had 2 colon adenomas removed at that time. Patient was treated with some oral prednisone and Rowasa. After his last GI Clinic visit here, he started balsalazide 5 tablets in the morning and 4 tablets in the evening as well as Canasa suppositories nightly for 1 month. Patient was found to have positive enteropathogenic E. coli in his stool, which was treated with 1 week of Cipro. Patient thinks that he may have had some viral flu-like infection in March or April, and this has resolved and overall he is feeling better. He does report, however, over the past week he has had more urgent frequent bowel movements up to 6 to 7 per day, which are little bit softer and looser than before. He denies any rectal bleeding or significant abdominal pain. Patient had a CT enterography that revealed proctitis, but no other significant a GI Symptoms or Concerns The cody ent is a 38-year-old male who is sent here in consultation by Dr. Ben Koch for evaluation of ulcerative proctitis. The patient reports that around December 2018, he developed some rectal bleeding as well as some rectal urgency, some fevers as well as occasional diarrhea and lower abdominal cramping. The patient reports that a CT scan on February 16, 2019 that revealed a nonobstructing kidney stone, but otherwise was unrevealing. He eventually had a colonoscopy on March 06, 2019 that revealed inflammation of the rectum and biopsies were consistent with ulcerative proctitis. He also had 2 colon adenomas that were removed. Biopsies of the inflamed rectum did show moderately active chronic proctitis consistent with ulcerative proctitis. The patient was started on mesalamine enemas as well as some oral prednisone for what sounds like a week or two and this has not significantly helped his symptoms. The patient reports he continues to have fevers as high as 103.5. He reports Functional Status Date Functional Assessmen t No Information Instructions Date Instruction Additional Infor abelino Continue Remicade 5 mg/kg every 4 weeks.Continue balsalazide 9 per day.Laboratories per protocol.See Dermatology annually for skin checks.Follow up in 1 year.Colonoscopy will be due in 2026. Related to Ulcerative (chronic) proctitis without complications - Patient has appoin tment to see a credit risk review officer in June for further evaluation of his joint pains 1 week before Remicade is due. If he has a recurrence of significant joint pains again before he sees the credit risk review officer then he will try to see his primary care provider that same day or be seen in urgent care to have his joints examined and for possible additional blood work and imaging and management. Related to Multiple joint pain -Continue remicade 5 mg/kg IV every 6 weeks-Continue balsalazide 5 tabs in am, 4 tabs in pm-Protocol labs while on the above-Calcium citrate and vitamin D-Avoid NSAIDs-Patient has declined flu shot and COVID-19 [id number]-Blbadc-yq in 6 months Related to Ulcerative (chronic) proctitis without complications -Repeat colonoscopy in 01/2027 Re lated to Personal history of colonic polyps Infliximab IV per ac celerated protocol -Repeat colonoscopy in 01/2027 Re lated to Personal history of colonic polyps -Continue remicade 5 mg/kg IV every 6 weeks-Continue balsalazide 5 tabs in am, 4 tabs in pm-Calcium citrate and vitamin D-Avoid NSAIDs-Patient declined flu shot and COVID-19 xororpkpsjfr-Mbcpoq-za in 6 months Related to Ulcerative (chronic) proctitis without complications -Repeat colonoscopy in 01/2027 Re lated to Personal history of colonic polyps -Since patient is ziegler ving recurrence of frequent bowel movements, rectal urgency where he sometimes cannot get to the bathroom in time starting at approximately 5-6 weeks after his remicade dose, we will start process to increase remicade dosing frequency to 5 mg/kg IV every 6 weeks-Continue balsalazide 5 tabs in am, 4 tabs in pm-Calcium citrate and vitamin D-Avoid NSAIDs-Patient can try using imodium 1-2 tabs every 6 hours as needed for rectal urgency and rectal frequency starting 5 weeks after remicade infusion as he waits for approval for every 6 week remicade kvyfxf-Jbleqc-uv in 4 months Related to Ulcerative (chronic) proctitis without complications Colon Cancer Prevention Related to Colorectal polyp detected on colonoscopy Colon Polyps Related to Color ectal polyp detected on colonoscopy -Medical genetics ev aluation due to two colon adenomas at age 38-Repeat colonoscopy in 02/2022 - ordered Related to Personal history of colonic polyps -Continue remicade 5 mg/kg IV every 8 weeks-Continue balsalazide 5 tabs in am, 4 tabs in pm-Calcium citrate and vitamin D-Avoid [id number]-Esvocx-ra in 3 months Related to Ulcerative (chronic) proctitis without complications Infliximab IV per standard ronaldo col. 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 -Labs as ordered-Con tinue balsalazide 5 tabs in am, 4 tabs in pm-Continue cansasa suppositories for 4-6 weeks until current symptoms resolve - if symptoms do not completely resolve despite canasa, then patient will let us know-Calcium citrate and vitamin D-Avoid TLIMGb-Kfrusy-es in 6 months Related to Ulcerative (chronic) proctitis with rectal bleeding -Medical genetics ev aluation due to two colon adenomas at age 38-Repeat colonoscopy in 02/2022, if not done sooner Related to Personal history of colonic polyps -Patient has appoint ment with cleaning laborer in near future for further evaluation of elevated transferrin saturation level and 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 -Continue balsalazid e 5 tabs in am, 4 tabs in pm-Continue cansasa suppositories as needed-Calcium citrate and vitamin D-Avoid NSAIDs-Patient will schedule appointment with his manager restaurant soon for further evaluation and treatment of intermittent chest pain and palpitations - patient will proceed to urgency room or ER if he develops severe symptoms-Levsin as needed for abdominal pain and diarrhea-Miralax as needed for ndlbamdgmmyz-Hhoese-bd in 6 months Related to Ulcerative proctitis without complication -Medical genetics ev aluation due to two colon adenomas at age 38-Repeat colonoscopy in 3 years, if not done sooner Related to Personal history of colonic polyps -Miralax as needed for constipat ion Related to Constipation, unspecified constipation type -Levsin as needed fo r abdominal pain and diarrhea Related to Lower abdominal pain -Patient has appoint ment with cleaning laborer soon for further evaluation of elevated transferrin saturation level and 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 -Patient has appoint ment with his manager restaurant soon for further evaluation and treatment of intermittent chest pain and palpitations Related to Chest pain, unspecified type -Medical genetics ev aluation due to two colon adenomas at age 38-Repeat colonoscopy in 3 years, if not done sooner Related to Personal history of colonic polyps -Continue balsalazid e 5 tabs in am, 4 tabs in pm-Continue cansasa suppositories - try to wean down to the lowest frequency of canasa use that controls symptoms-Calcium citrate and vitamin D-Avoid [id number]-Jwvkeh-dq in 3 months Related to Ulcerative proctitis without complication -Patient will call h is manager restaurant today for further evaluation and treatment of intermittent chest pain and palpitations Related to Chest pain, unspecified type -Medical genetics ev aluation due to two colon adenomas at age 38-Repeat colonoscopy in 3 years, if not done sooner Related to Personal history of colonic polyps -CBC, iron studies-C ontinue balsalazide 5 tabs in am, 4 tabs in pm-Restart cansasa suppositories nightly for 1 month, then try to wean down to the lowest frequency of canasa use that controls symptoms-Flex sig with random biopsies to assess current disease extent and severity-Calcium citrate and vitamin D-Avoid NSAIDs-Pneumovax vaccine -Twinrix #2 lkqjj-Kkbexy-nj in 1 month Related to Ulcerative proctitis with rectal bleeding -Stool infectious pa jose-Continue balsalazide 5 tabs in am, 4 tabs in pm-Start steroid suppositories (anusol) twice daily for 1 week followed by cansasa suppositories nightly for 1 month-If patient has persistent GI symptoms despite the above, then would consider flex sig with biopsies for further evaluation-Calcium citrate and vitamin D-Avoid NSAIDs-Pneumovax vaccine after at 06/11/19-Flu shot, start twinrix lkxsf-Jtocjw-nm in 2 months Related to Ulcerative proctitis without complication -Medical genetics ev aluation due to two colon adenomas at age 38-Repeat colonoscopy in 3 years, if not done sooner Related to Personal history of colonic polyps -Medical genetics ev aluation due to two colon adenomas at age 38-Repeat colonoscopy in 3 years, if not done sooner Related to Personal history of colonic polyps -Labs as ordered-[facility] infectious studies-CT enterography to check for any small bowel inflammation or abscess due to high fevers-Start lialda 4.8 grams daily-Cansasa suppositories nightly for [address] of mesalamine enemas-If no evidence of infection on above testing, and if symptoms persist despite mesalamine, then can consider steroid suppositories, steroid enemas, or oral steroids to try to induce remission-Caclium citrate and vitamin D-Avoid NSAIDs-Prevnar vaccination today-Pneumovax vaccine after at least 8 weeks-Flu shot in kwvd-Vtqskm-db in 1 month Related to Ulcerative proctitis with rectal bleeding Assessments Type Assessment Date No Information Patient Care Teams Name Effective Dates (start - stop) Status Members No Information
--- OUTSIDE RECORDS SUMMARY | 2024-05-24 03:10 | XMS_ITS | Clinical Summary ---
Author Organization [place] Address [address] [place] [id number] Care Team Providers Care Remelt Sugar Boiler Name Role Phone Ben Koch MD Primary Care Provider Xavier Kaur MD Unavailable [phone] Savage Ma MD Unavailable [phone] Allergies No known active allergies Medications Medication [...] Comments Blood Pressure 127/86 07/05/2021 1:10 PM PSYCHOTHERAPIST SOCIAL WORKER Pulse 66 07/05/2021 11:40 AM PSYCHOTHERAPIST SOCIAL WORKER Temperature 36.1 ??C (97 ??F) 07/05/2021 10:45 AM PSYCHOTHERAPIST SOCIAL WORKER Respiratory Rate 18 07/05/2021 10:45 AM PSYCHOTHERAPIST SOCIAL WORKER Oxygen Saturation 98% 07/05/2021 1:40 PM PSYCHOTHERAPIST SOCIAL WORKER Inhaled Oxygen Concentration - - Weight - [...] calendar year) 2023 COVID-19 Vaccine (1 - 2023-2 5 season) 2024 INFLUENZA VACCINE (#1) 2024 0, 06/02/2019 GLUCOSE 07/05/2024 07/05/2021 DTAP/TDAP/TD IMMUNIZATION (3 - Td or Tdap) 05/28/2025 05/28/2015, 04/30/2015 RSV VACCINE (1 - 1-dose 75+ series) 2056 Pneumococcal Vaccine: Pediatrics (0 to 5 Years) [...] BASIC METABOLIC PANEL STAT 07/05/2021 11:33 AM PSYCHOTHERAPIST SOCIAL WORKER from Last 3 Months or Most Recently Relevant to Health Maintenance Results * Basic metabolic panel (07/05/2021 11:33 AM PSYCHOTHERAPIST SOCIAL WORKER) Sodium 139 133 - 144 mmol/L 07/05/2021 12:14 PM PSYCHOTHERAPIST SOCIAL WORKER [facility] Potassium 4.4 3.4 - 5.3 mmol/L 07/05/2021 12:14 PM PSYCHOTHERAPIST SOCIAL WORKER [facility] Comment:Specimen slightly he molyzed, potassium may be falsely elevated. Chloride 108 94 - 109 mmol/L 07/05/2021 12:14 PM PSYCHOTHERAPIST SOCIAL WORKER [facility] Carbon Dioxide (CO2) 27 20 - 32 mmol/L 07/05/2021 12:14 PM PSYCHOTHERAPIST SOCIAL WORKER [facility] Anion Gap 4 3 - 14 mmol/L 07/05/2021 12:14 PM PSYCHOTHERAPIST SOCIAL WORKER [facility] Urea Nitrogen 13 7 - 30 mg/dL 07/05/2021 12:14 PM [facility] Creatinine 0.89 0.66 - 1.25 mg/dL 07/05/2021 12:14 PM [facility] Calcium 8.7 8.5 - 10.1 mg/dL 07/05/2021 12:14 PM [facility] Glucose 97 70 - 99 mg/dL 07/05/2021 12:14 PM PSYCHOTHERAPIST SOCIAL WORKER [facility] GFR Estimate >90 >60 mL/min/1.7 3m2 07/05/2021 12:14 PM [facility] Comment:As of March 02, 2021, eGFR is calculated by the CKD-EPI creatinine equation, without race adjustment. eGFR can be influenced by muscle mass, exercise, and diet. The reported eGFR is an estimation only and is only applicable if the renal function is stable. Blood STRUCTURE OF RIGHT UPPER LIMB / Unknown Venipuncture / Unknown 07/05/2021 11:33 AM PSYCHOTHERAPIST SOCIAL WORKER 07/05/2021 11:52 AM PSYCHOTHERAPIST SOCIAL WORKER Kenzie Mccracken MD LAB - BLOOD KOKI DOMÍNGUEZ [facility] Organization Address City/State/ZIP Co de Phone Number [facility] [address] [facility] Lab (1st floor, no room number) [place] [address], [facility] [phone] from Last 3 Months or Most Recently Relevant to Health Maintenance Care Teams Remelt Sugar Boiler Relationship Specialty Start Date End Date Ben Koch MD [facility] [address] [place], [place] [id number] PCP - General Emergency Medicine 02/17/21 Xavier Kaur MD [place] [facility] [address] [facility] [place] [address] Gastroenterology 02/17/21 Savage Ma MD [facility] [address] [address] 02/17/21
--- OUTSIDE RECORDS SUMMARY | 2024-05-24 03:10 | XMS_ITS | Encounter Summary ---
Author Organization [place] Address [address] [place] [address]. [place] [address] Care Team Providers Care Director Financial Systems Name Role Phone Ben Koch MD Primary Care Provider Xavier Kaur MD Unavailable [phone] Savage Ma MD Unavailable [phone] Encounter Details Date Type Department Care Team [...] COVID-19? No / Unsure 07/05/2021 10:34 AM LICENSING AND REGISTRATION DIRECTOR documented as of this encounter Plan of Treatment Not on file documented as of this encounter Visit Diagnoses Not on filedocumented in this encounter Care Teams Director Financial Systems Relationship Specialty Start Date End Date Ben Koch MD [facility] [address] [place] [address] PCP - General Emergency Medicine 02/17/21 Xavier Kaur MD [place] [facility] [address] [facility] [place] [address] Gastroenterology 02/17/21 Savage Ma MD [address] [id number] [place] [address] 02/17/21 documented as of this encounter
--- OUTSIDE RECORDS SUMMARY | 2024-05-24 03:10 | XMS_ITS | Referral Summary ---
Author Organization [place] Address [address] [place] [address] Care Team Providers Care Order Entry Technician Name Role Phone Ben Koch MD Primary Care Provider Xavier Kaur MD Unavailable [phone] Savage Ma MD Unavailable [phone] Allergies No known active allergies Medications Medication [...] Comments Blood Pressure 127/86 07/05/2021 1:10 PM SENIOR PRODUCT DEVELOPMENT SCIENTIST Pulse 66 07/05/2021 11:40 AM SENIOR PRODUCT DEVELOPMENT SCIENTIST Temperature 36.1 ??C (97 ??F) 07/05/2021 10:45 AM SENIOR PRODUCT DEVELOPMENT SCIENTIST Respiratory Rate 18 07/05/2021 10:45 AM SENIOR PRODUCT DEVELOPMENT SCIENTIST Oxygen Saturation 98% 07/05/2021 1:40 PM SENIOR PRODUCT DEVELOPMENT SCIENTIST Inhaled Oxygen Concentration - - Weight - - Height - - Body Mass Index - - Plan of Treatment Not on file Procedures Procedure Name Priority Date/Time Associated Diagnosis Comments BASIC METABOLIC PANEL STAT 07/05/2021 11:33 AM SENIOR PRODUCT DEVELOPMENT SCIENTIST from Last 3 Months or Most Recently Relevant to Health Maintenance Results * Basic metabolic panel (07/05/2021 11:33 AM SENIOR PRODUCT DEVELOPMENT SCIENTIST) Sodium 139 133 - 144 mmol/L 07/05/2021 [...] Unknown Venipuncture / Unknown 07/05/2021 11:33 AM SENIOR PRODUCT DEVELOPMENT SCIENTIST 07/05/2021 11:52 AM SENIOR PRODUCT DEVELOPMENT SCIENTIST Kenzie Mccracken MD LAB - BLOOD KOKI DOMÍNGUEZ [facility] Organization Address City/State/ZIP Co de Phone Number LABORATORY [facility] Acute [facility] Lab [address] Lab (1st floor, no room number) [place] [address], [facility] [phone] from Last 3 Months or Most Recently Relevant to Health Maintenance Care Teams Order Entry Technician Relationship Specialty Start Date End Date Ben Koch MD [facility] [address] [place] [address] PCP - General Emergency Medicine 02/17/21 Xavier Kaur MD [place] [facility] [address] [facility] [place] [address] Gastroenterology 02/17/21 Savage Ma MD [address] [facility] [address] [place] [address] 02/17/21
--- OUTSIDE RECORDS SUMMARY | 2024-05-24 03:10 | XMS_ITS | Clinical Summary ---
Author Organization [employer] [facility] Address [place], [place] [address] Care Team Providers Care Security Systems Administrator Name Role Phone Ben Koch MD Primary Care Provider [phone] Allergies Active Allergy Reactions Criticality Noted Date Comments Venlafaxine Analogues 12/13/2006 intolerance dizziness 10/25 Medications Medication Sig Dispensed Refills Start Date End Date Status acetaminophen (TYLENOL) 325 mg tablet Take 1-2 tablets by mouth every 4 hours if needed (For mild pain.). Max acetaminophen dose: 4000mg in 24 hrs. 0 8 Active balsalazide (COLAZAL) 750 mg capsule Take by mouth 2 times daily. 3750 mg (5 caps) in the AM, 3000 mg (4 caps) in the PM Active inFLIXimab (Remicade) 100 mg injection Inject 5 mg/kg intravenous every 4 weeks. 3 Active clonazePAM (KLONOPIN) 1 mg tablet Take 1 mg by mouth one time if needed for Anxiety. 3 Active oxyCODONE-acetam inophen (PERCOCET) 5-325 mg per tablet Take 1 Tablet by mouth every 4 hours if needed for Pain. 1 Active tamsulosin (FLOMAX) 0.4 mg capsule Take 0.4 mg by mouth once daily. Active ondansetron (ZOFRAN) 4 mg tablet Take 8 mg by mouth two times daily. Active sertraline (ZOLOFT) 100 mg tablet Take 100 mg by mouth once daily. Active hyoscyamine sublingual (LEVSIN SL) 0.125 mg sublIndications: Post-operative state Place 1 Tablet (0.125 mg) under the tongue every 4 hours if needed for Bladder Spasms. 20 Tablet 1 4 Active gabapentin (NEURONTIN) 300 mg capsule Take 300 mg by mouth 2 times daily if needed (pain). 3 05/01/20 24 Discontinued(* Patient states no longer taking) predniSONE (DELTASONE) 20 mg tablet Take 20 mg by mouth two times daily with meals. PRN 3 05/01/20 24 Discontinued(* Patient states no longer taking) flecainide (TAMBOCOR) 50 mg tabletIndication s:Paroxysmal atrial fibrillation (HC) Take 1 Tablet (50 mg) by mouth every 12 hours. 180 Tablet 2 4 05/01/20 24 Discontinued(P harmacist change per medication history (E-cancel not sent)) phenazopyridine (PYRIDIUM) 200 mg tabletIndication s:Post-operative state Take 1 Tablet (200 mg) by mouth 3 times daily if needed for Pain for up to 2 days. 6 Tablet 4 05/04/20 24 cephalexin (KEFLEX) 500 mg capsuleIndicatio ns:PROPHYLAXIS,u rinary tract infection Take 1 Capsule (500 mg) by mouth three times daily for 3 days. 9 Capsule 4 05/05/20 24 Active Problems Problem Noted Date Diagnosed Date Left ureteral stone 05/01/2024 Ulcerative colitis 05/01/2024 Hydronephrosis with urinary obstruction due to ureteral calculus 10/24/2020 ADHD (attention deficit hype ractivity disorder), combined type 10/30/2011 Adjustment disorder with depressed mood 10/29/19 Seborrheic dermatitis 12/17/2010 PAROXYSMAL ATRIAL FIBRILLATION Overview (09/14/2008): S/P ablation by dr toussaint 12/27 S/P repeat atrial fib ablation 09/14/2008 Anxiety state, unspecified Dysthymic disorder Allergic rhinitis, cause unspecified Encounters Date Type Department Care Team Description 05/02/2024 11:47 AM CDT Anesthesia Event [facility] [address] [place] [address] Patrice Vargas DO 05/02/2024 11:31 AM CDT - 05/02/2024 12:51 PM CDT Surgery [facility] [address] [place] [address] Dante Dennis MD CYSTOSCOPY, LEFT URETERAL STENT 05/01/2024 2:50 PM CDT - 05/02/2024 4:45 PM CDT Hospital Encounter [facility] [address] [place] [address] [facility] [place] Livan Carrillo NP Post-operative state (Primary Dx); Left ureteral stone Discharge Disposition: Home Self Care 05/01/2024 Travel from Last 3 Months Immunizations Name Administration Dates Next Due Hepatitis [...] of Communication with Friends and Fami ly 0 05/01/2024 Financial Resource Strain Answer Date R ecorded Difficulty of Paying Living Expenses 3 05/01/2024 Difficulty of Paying Living Expenses Not on file 05/01/2024 Food Insecurity Answer Date Recorded Worried About Running Out of Food in the Last Ye ar 1 05/01/2024 Transportation Needs Answer Date Record ed Lack of Transportation (Medical) 1 05/01/2024 Housing Stability Answer Date Recorded Unable to Pay for Housing in the Last Year 1 05/01/2024 Sex and Gender Information Value Date Recorded Sex Assigned at Not on file Gender Identity Not on file Sexual Orientation Not on file Obstetrics History Last Filed Vital Signs Vital Sign Reading Time Taken Comments Blood Pressure 119/61 05/02/2024 3:50 PM CDT Pulse 71 05/02/2024 3:50 PM CDT Temperature 36.9 ??C (98.4 ??F) 05/02/2024 3:16 PM CD T Respiratory Rate 18 05/02/2024 3:50 PM CDT Oxygen Saturation 96% 05/02/2024 3:50 PM CDT Inhaled Oxygen Concentration - - Weight 77.5 kg (170 lb 14.4 oz) 08/02/2023 9:32 AM PROGRESSIVE CARE MANAGER Height 182.9 cm (6') 08/02/2023 9:32 AM PROGRESSIVE CARE MANAGER Body Mass Index 23.18 08/02/2023 9:32 AM PROGRESSIVE CARE MANAGER Plan of Treatment Upcoming Encounters Date Type Department Care Team (Latest Contact Info) Description 05/25/2024 11:30 AM CDT Hospital Encounter [facility] [address] [place] [address] Dante Dennis MD [address] [place] [address] 05/25/2024 11:30 AM CDT - 05/25/2024 1:03 PM CDT Surgery [facility] [address] [place] [address] Dante Dennis MD [address] [place] [address] CYSTOSCOPY, LEFT URETEROSCOPY, HOLMIUM LASER LITHOTRIPSY Scheduled Procedures Name Priority Associated Diagnoses Date/Ti me CYSTOSCOPY URETEROSCOPY LASER Class E Urgent N20.0- kidney stones 05/25/2024 11:30 AM CDT CYSTOSCOPY REMOVAL URETERAL STENT Class E Urgent N20.0- kidney stones 05/25/2024 11:30 AM CDT Health Maintenance Due Date Last [...] this topic Medical Devices Implanted Type Area Sandstone Inspector Repairer Device Identifier Shelf Expiration Date Model / Serial / Lot Stent Uret [id number] Contour - [id number] Implanted:Qty: 1 on 10/24/2020 by Gricelda Henning MD at [facility] Left: Ureter [facility] [id number] / / [id number] Stent Uret [id number] Contour - [id number] Implanted:Qty: 1 on 05/02/2024 by Dante Dennis MD at [facility] Left: Ureter [facility] Urology 12/02/2025 [id number] / / [id number] Procedures Procedure Name Priority Date/Time Associated Diagnosis Comments CBC W PLT NO DIFF Today 05/02/2024 3:3 9 PM CDT EKG 12 LEAD STAT 05/02/2024 1:07 PM CDT XR RETROGRADE PYELOGRAM W/WO KUB Routine 05/02/2024 12:32 PM CDT SUPRAGLOTTIC-LMA Routine 05/02/2024 12:0 3 PM CDT CYSTOSCOPY PLACEMENT URETERAL STENT Class D Urgent 05/02/2024 11:33 AM CDT Left ureteral stone CREATININE Early AM 05/02/2024 4:56 AM CDT POTASSIUM Early AM 05/02/2024 4:56 AM CDT SODIUM Early AM 05/02/2024 4:56 AM CDT URINALYSIS MICROSCOPIC Timed 05/01/2024 6:32 PM CDT URINE CULTURE Today 05/01/2024 6:32 PM CDT UA W/ SEDIMENT EXAM REFLEXED PER CRITERIA Today 05/01/2024 6:32 PM CDT SCAN-CARDIAC STRIP 05/01/2024 12 :00 AM CDT CHOLESTEROL,TOTAL Routine 05/30/2003 10: 27 AM CDT from Last 3 Months or Most Recently Relevant to Health Maintenance Results * (ABNORMAL) CBC no diff TODAY (05/02/2024 3:39 PM CDT) WHITE BLOOD COUNT 6.5 4.5 - 11.0 thou/cu mm 05/02/2024 3:58 PM CDT [facility] RED BLOOD COUNT 4.31 4.30 - 5.90 mil/cu mm 05/02/2024 3:58 PM CDT [facility] HEMOGLOBIN 13.0(L) 13.5 - 17.5 g/dL 05/02/2024 3:58 PM CDT [facility] HEMATOCRIT 38.2 37.0 - 53.0 % 05/02/2024 3:58 PM CDT [facility] MCV 89 80 - 100 fL 05/02/2024 3:58 PM CDT [facility] MCH 30.2 26.0 - 34.0 pg 05/02/2024 3:58 PM CDT [facility] MCHC 34.0 32.0 - 36.0 g/dL 05/02/2024 3:58 PM CDT [facility] RDW 12.4 11.5 - 15.5 % 05/02/2024 3:58 PM CDT [facility] PLATELET COUNT 283 140 - 440 thou/cu mm 05/02/2024 3:58 PM CDT [facility] MPV 8.6 6.5 - 11.0 fL 05/02/2024 3:58 PM CDT [facility] NRBC 0.0 % 05/02/2024 3:58 PM CDT [facility] ABS NRBC 0.0 thou /cu mm 05/02/2024 3:58 PM CDT [facility] Blood BLOOD SPECIMEN / Unknown Venipuncture / Unknown 05/02/2024 3:39 PM CDT 05/02/2024 3:51 PM CDT Livan Carrillo WEB ANALYTICS DEVELOPER HEMATOLOGY Performing Organization Address [facility] Co de Phone Number [facility] [address] [place] [address], * EKG 12 LEAD (05/02/2024 1:07 PM CDT) Interpretation Normal sinus rhythm Normal ECG When compared with ECG of 02-Aug-2023 09:32, T wave amplitude has decreased in Inferior leads QT has lengthened [facility] NOW Ventricular Rate 81 BPM [facility] NOW Atrial Rate 81 BPM BEYOND NOW P-R Interval 144 ms BEYOND NOW QRS Duration 96 ms BEYOND NOW QT 384 ms BEYOND NOW QTc 446 ms BEYOND NOW P Tilden 65 degrees BEYOND NOW R Tilden 70 degrees BEYOND NOW T Tilden 59 degrees BEYOND NOW 05/02/2024 1:07 PM CDT 05/03/2024 1:48 PM CDT Narrative [facility] NOW - 05/03/2024 1:48 PM CDT Test Indication: stat Patrice Vargas DO EKG ORD Performing Organization Address City/[facility] Co de Phone Number [facility] [place], [place] * XR RETROGRADE PYELOGRAM W/WO KUB (05/02/2024 12:32 PM CDT) Anatomical Region Laterality Modality KIDNEYS, Abdomen Digital Radiogr aphy 05/03/2024 10:4 9 AM CDT Narrative 05/03/2024 10:49 AM CDT For Patients: ??As a result of the Century Cures Act, medical imaging exams and procedure reports are released immediately into your electronic medical record. ??You may view this report before your referring provider. ??If you have questions, please contact your health care provider. Indication: OR 18,, CYSTOSCOPY,, LEFT URETEROSCOPY,, LASER LITHOTRIPSY,, LEFT URETERAL STENT Technique: Eleven fluoroscopic intraoperative images were submitted for review. 21.6 seconds of intraoperative fluoroscopy was performed. Comparison: 10/24/2020. Findings/impression : No laterality markers are present. Images demonstrate a retrograde wire within the ureter and upper tract collecting system. Contrast opacification demonstrates filling defects within the proximal ureter. Final images demonstrate a double-J ureteral stent with proximal coil in the region of the renal pelvis and distal coil in the region of the bladder. Please refer to operative report for additional details. Dictated by Tawny Saldivar DO @ May 03 2024 10:49AM (Electronically Signed) [email or web address] Procedure Note Tawny Saldivar DO - 05/03/2024 For Patients: As a result of the Century Cures Act, medical imagingexams and procedure reports are released immediately into your electronicmedical record. You may view this report before your referring provider.If you have questions, please contact your health care provider. Indication: OR 18,, CYSTOSCOPY,, LEFT URETEROSCOPY,, LASER LITHOTRIPSY,, LEFT URETERAL STENT Technique: Eleven fluoroscopic intraoperative images were submitted for review. 21.6seconds of intraoperative fluoroscopy was performed. Comparison: 10/24/2020. Findings/impression : No laterality markers are present. Images demonstrate a retrograde wirewithin the ureter and upper tract collecting system. Contrastopacification demonstrates filling defects within the proximal ureter.Final images demonstrate a double-J ureteral stent with proximal coil inthe region of the renal pelvis and distal coil in the region of thebladder. Please refer to operative report for additional details. Dictated by Tawny Saldivar DO @ May 03 2024 10:49AM (Electronically Signed) [email or web address] Dante Dennis MD GENERAL IMAGING * HCHG MASK PR5 (05/02/2024 12:03 PM CDT) Narrative Kenneth Phelps CRNA - 05/02/2024 12:03 PM CDT Danger, Kenneth Oz, SOUND TESTER ? 05/02/2024 12:04 PM Procedure: Supraglottic Patient location during procedure: OR Supraglottic Airway Properties Mask Ventilation: easy Type: unique Tube Size: 5 Insertion Attempts: 1 Placement Verification: auscultation and CO2 detection Assessment Assessment: atraumatic and dentition unchanged Airway Intervention: repositioned - midline and cuff inflated Cuff Volume: 7 Kenneth Oz Danger SOUND TESTER ANESTHESIA PX NOTE ORDERABLES * Sodium AM (05/02/2024 4:56 AM CDT) SODIUM 141 136 - 145 mmol/L 05/02/2024 6:37 AM CDT [facility] Blood BLOOD SPECIMEN / Unknown Venipuncture / Unknown 05/02/2024 4:56 AM CDT 05/02/2024 5:05 AM CDT Esha Armstrong MD CHEMISTRY Performing Organization Address City/[facility]/ZIP Co de Phone Number [facility] [address] [place] [address], [place] * Potassium AM (05/02/2024 4:56 AM CDT) POTASSIUM 4.4 3.5 - 5.1 mmol/L 05/02/2024 6:37 AM CDT [facility] Blood BLOOD SPECIMEN / Unknown Venipuncture / Unknown 05/02/2024 4:56 AM CDT 05/02/2024 5:05 AM CDT Esha Armstrong MD CHEMISTRY [facility] [address] [place] [address], [place] * (ABNORMAL) Creatinine AM (05/02/2024 4:56 AM CDT) eGFR 88(L) >90 mL/min/1.7 3m2 05/02/2024 6:37 AM CDT [facility] Comment:As of 2021, eG FR is calculated by the CKD-EPI creatinine equation without race adjustment. ??eGFR can be influenced by muscle mass, exercise, and diet. ??The reported eGFR is an estimation only and is only applicable if the renal function is stable. CREATININE 1.08 0.70 - 1.20 mg/dL 05/02/2024 6:37 AM CDT [facility] Blood BLOOD SPECIMEN / Unknown Venipuncture / Unknown 05/02/2024 4:56 AM CDT 05/02/2024 5:05 AM CDT Esha Armstrong MD CHEMISTRY Performing Organization Address City/[facility] Co de Phone Number [facility] [address] [place] [address], [place] * URINALYSIS MICROSCOPIC (05/01/2024 6:32 PM CDT) RBC 0-2 0-2, None Seen /HPF 05/01/2024 6:53 PM CDT [facility] WBC 3-5 0-2, 3-5, None Seen /HPF 05/01/2024 6:53 PM CDT [facility] BACTERIA None Seen None Seen, Rare, Few Bacteria/ HPF 05/01/2024 6:53 PM CDT [facility] EPITHELIAL CELLS None Seen None Seen, Few Epi/HPF 05/01/2024 6:53 PM CDT [facility] HYALINE CASTS 0-2 0-2, 3-5 /LPF 05/01/2024 6:53 PM CDT [facility] Urine URINE SPECIMEN / Unknown Non-Blood / Unknown 05/01/2024 6:32 PM CDT 05/01/2024 6:39 PM CDT Livan Carrillo NP URINE Performing Organization Address City/[facility]/ZIP Co de Phone Number [facility] [address] [place] [id number], [place] * URINE CULTURE (05/01/2024 6:32 PM CDT) CULTURE No growth (<1,000 CFU/mL) 05/02/2024 5:28 PM CDT [facility] Urine URINE SPECIMEN / Unknown Non-Blood / Unknown 05/01/2024 6:32 PM CDT 05/01/2024 6:39 PM CDT Livan Carrillo NP MICROBIOLOGY [facility] [address] [place] [address], [place] * (ABNORMAL) Urinalysis TODAY (05/01/2024 6:32 PM CDT) COLOR Yellow Yellow Color 05/01/2024 6:53 PM CDT [facility] CLARITY Clear Clear Clarity 05/01/2024 6:53 PM CDT [facility] SPECIFIC GRAVITY,URINE 1.010 1.010, 1.015, 1.020, 1.025 05/01/2024 6:53 PM CDT [facility] PH,URINE >=9.0(A) 6.0, 7.0, 8.0, 5.5, 6.5, 7.5, 8.5 05/01/2024 6:53 PM CDT [facility] UROBILINOGEN, QUALITATIVE Normal Normal EU/dl 05/01/2024 6:53 PM CDT [facility] PROTEIN, URINE Negative Negative mg/dL 05/01/2024 6:53 PM CDT [facility] GLUCOSE, URINE Negative Negative mg/dL 05/01/2024 6:53 PM CDT [facility] KETONES,URINE Negative Negative mg/dL 05/01/2024 6:53 PM CDT [facility] BILIRUBIN,URI NE Negative Negative 05/01/2024 6:53 PM CDT [facility] OCCULT BLOOD,URINE Negative Negative 05/01/2024 6:53 PM CDT [facility] NITRITE Negative Negative 05/01/2024 6:53 PM CDT [facility] LEUKOCYTE ESTERASE Trace(A) Negative 05/01/2024 6:53 PM CDT [facility] Urine URINE SPECIMEN / Unknown Non-Blood / Unknown 05/01/2024 6:32 PM CDT 05/01/2024 6:39 PM CDT Livan Carrillo NP URINE [facility] [address] [place] [address], * SCAN-CARDIAC STRIP (05/01/2024 12:00 AM CDT) Narrative 05/01/2024 12:00 AM CDT Ordered by an unspecified provider. Other Clinical Staff OTHER * CHOLESTEROL,TOTAL (05/30/2003 10:27 AM CDT) CHOLESTEROL,TOT AL 162 <200 mg/dL 05/30/2003 10:2 7 AM CDT Narrative 02/19/2004 1:39 PM CDT Ordered by an unspecified provider. Other Clinical Staff CHEMISTRY from Last 3 Months or Most Recently Relevant to Health Maintenance Advance Directives * Full Code (Latest Code Status on File) Date Activated Date Inactivated Comments 05/02/2024 11:00 AM 05/02/2024 7:16 PM Question Answer Comments Code Status Discussion: Unable to Assess Preferences, Provider to review later * Full Code Date Activated Date Inactivated Comments 05/01/2024 4:26 PM 05/02/2024 11:00 AM Question Answer Comments Code Status Discussion: Reviewed Preferences * Full Code Date Activated Date Inactivated Comments 11/19/2020 8:51 AM 11/19/2020 5:46 PM Question Answer Comments Code Status Discussion: Not Discussed * Full Code Date Activated Date Inactivated Comments 10/24/2020 11:56 AM 10/25/2020 3:36 PM Question Answer Comments Code Status Discussion: Discussed * Full Code Date Activated Date Inactivated Comments 03/25/2018 3:16 PM 03/26/2018 2:39 PM Care Teams Security Systems Administrator Relationship Specialty Start Date End Date Ben Koch MD [address] [place], [place] [id number] PCP - General Internal Medicine 03/09/18
== END 2024-05-01 13:51 | disposition home or self-care (01) ==
LOC: AMB 05-24 03:07
PROVIDERS: PCP Internal Medicine; Visit Provider Emergency Medicine
DX: R10.9 Unspecified abdominal pain (principal)
CPT/HCPCS: A0425; A0427

== ENCOUNTER 2024-05-04 13:11 | Outpatient (CLI) | payer BC, SELFPAY | END 2024-05-04 13:12 | disposition home or self-care (01) | LOC: NFLDREF 05-07 17:48 | PROVIDERS: PCP Internal Medicine; Referring Provider Internal Medicine; Visit Provider Internal Medicine | DX: N20.1 Calculus of ureter (principal) | CPT/HCPCS: 87086 ==

== ENCOUNTER 2025-05-04 18:57 | Outpatient (CLI) | payer BC, SELFPAY | END 2025-05-04 18:58 | disposition home or self-care (01) | LOC: AMB 05-07 09:54 | PROVIDERS: PCP Internal Medicine; Visit Provider Family Medicine | DX: R45.851 Suicidal ideations (principal) | CPT/HCPCS: A0425; A0429 ==

== ENCOUNTER 2025-05-27 13:23 | Outpatient (CLI) | payer BC, SELFPAY | END 2025-05-27 13:24 | disposition home or self-care (01) | LOC: AMB 05-29 16:11 | PROVIDERS: PCP Internal Medicine; Visit Provider Student in an Organized Health Care Education/Training Program | DX: R55 Syncope and collapse (principal); R42 Dizziness and giddiness; S09.93XA Unspecified injury of face, initial encounter; S49.90XA Unspecified injury of shoulder and upper arm, unspecified arm, initial encounter; W18.30XA Fall on same level, unspecified, initial encounter; Y93.K1 Activity, walking an animal; Y92.480 Sidewalk as the place of occurrence of the external cause | CPT/HCPCS: A0425; A0427 ==

== ENCOUNTER 2025-05-27 13:59 | Emergency (ER) | payer BC, SELFPAY ==
--- OUTSIDE RECORDS SUMMARY | 2025-05-23 11:41 | XMS_ITS | Continuity of Care Document ---
Author Organization [facility] Address [address] [address] [place] [address] Phone Care Team Providers Care Associate Merchandise Planner Name Role Phone Jet Cox MD, Damián Ureña Unavailabl e Allergies, Adverse Reactions, Alerts Substance Reaction Status Criticality VENLAFAXINE HCL Unknown Active No Informati on Medications Medication Instructions Dosage Effective Dates (start - stop) Status Comments clonazepam 1 mg tablet take 1 Tablet by oral route every day as needed 1 MG - Active hydroxyzine HCl 50 mg tablet take 1 - 2 tablet by oral route 3 times every day as needed 50 MG - Active sertraline 150 mg capsule take 1 capsule by oral route every day 150 MG - Active sotalol 80 mg tablet take 1 tablet by or al route 2 times every day 80 MG - Active trazodone 50 mg tablet take 1 tablet by oral route every day after meals 50 MG - Active Betapace 80 mg tablet take 1 tablet by o ral route 2 times every day 80 MG - Active Remicade Administer Remicade 5 mg/kg every 4 weeks infuse by IV route - Active balsalazide 750 mg capsule take 5 capsules by mouth in the morning and 4 capsules in the evening - Active Procedures Procedure Date Offic/outpt E&m Estab Moderate Complex e/m visit add on Routine Serum Collection Remicade Per 10 Mg [...] Up To 1 Hour Routine Serum Collection Routine Serum Collection Remicade Per 10 Mg IV Infusion Up To 1 Hour Remicade Per 10 Mg Remicade Per 10 Mg IV Infusion Up To 1 Hour Remicade Per 10 Mg Remicade Per 10 Mg IV Infusion Up To 1 Hour Remicade Per 10 Mg Remicade Per 10 Mg IV Infusion Up To 1 Hour Routine Serum Collection Remicade Per 10 Mg Remicade Per 10 [...] Per 10 Mg Sigmoidoscopy Flex; W/bx 1/mx 1 Level Iv-surg Path Gross/micro Immunocytochemistry, Each Antibody Routine Serum Collection Routine Serum Collection Basic Metabolic Panel Routine Serum Collection Comp Metabolic Panel Ferritin Bilirubin; Direct Iron Iron Binding Capacity Vitamin D; [address]; Hg/pltlt Ct Auto/compl Telephone E&M I 5-10 Min ANASTASIA 021 Virtual Visit E&m Estab Low-mod 15-25 Mi n Offic/outpt E&m Estab Mod-hi 2 Stool Kits Given FilmArray GI Panel Sigmoidoscopy Flex; W/bx 1/mx 0 Level Iv-surg Path Gross/micro Routine Serum Collection Offic/outpt E&m Estab Mod-hi 2 19 Routine Serum Collection Immuniz Admin; 1/combo Vacc/to Hep A-hep B Vaccine Adult Dose Immuniz Admin; 2/> Sing/comb V Pneumococcal Polysacch Vac-fransisco 19 Ferritin Iron Iron Binding Capacity Bld Ct; Hg/pltlt Ct Auto/compl Offic/outpt E&m Estab Mod-hi 2 Immuniz Admin; 1/combo Vacc/to Hep A-hep B Vaccine Adult Dose Immuniz Admin; 2/> Sing/comb V 19 Influenza vaccine-quadrivalent 0.5 ML Oc Stool Kits Given FilmArray GI Panel Stool Kits Given FilmArray GI Panel Offic/outpt E&m New Mod-hi Routine Serum Collection Immuniz Admin; 1/combo Vacc/to [id number]; Hg/pltlt Ct Auto/compl 19 Hepatitis B Surface Antibody Comp Metabolic Panel Vitamin D; 25 Hydroxy Folic Acid; Serum Iron Gg; Iga, Igd, Igg, Igm, Ea Ferritin Hepatitis A Antibody; Igg & Ig 19 Ag-immunoassay; Hep B Surface 9 Hep B Core Antibody Cyanocobalamin Iron Binding Capacity Bilirubin; Direct Advance Directives Directive Yes / No Effective Date File Name No Information Encounters Encounter Description Practice Location Reason(s) For Visit Diagnoses Date Provider Providers Copied on Encounter [facility], [address] [address], [place], [id number], [place] tel:[phone] [facility] No Information May-0 5 Jet Steel. [address] [facility], [facility] [address], [place], [id number], [place]. tel:[phone] Offic/outpt E&m Estab Moderate [facility], [address] [address], [place], [id number], [place] tel:[phone] [facility] GI Symptoms or Concerns (chief complaint) Ulcerative (chronic) proctitis without complicationsLow er abdominal painDiarrhea, unspecifiedRecta l urgency Sep-3 0 5 Vincent Park. [address] [facility], [address], [id number], [place]. tel:[phone] Referring Provider: Referral Self, USE FOR SELF REFERRALS. [facility], [address] [address], [place], [id number], [place] tel:[phone] [facility] Ulcerative (chronic) proctitis without complicationsUlc erative (chronic) proctitis with rectal bleeding Sep-2 5 Vincent Park. [address] [facility], [facility] [address], [place], [address], [place]. tel:[phone] Referring Provider: Referral Self, USE FOR SELF REFERRALS. [facility], [address] [address], [place], [id number], [place] tel:[phone] [facility] Ulcerative (chronic) proctitis without complications Sep-0 5 Darell Soliz. [address] [facility], [facility] [address], [place], [address], [place]. tel:[phone] Referring Provider: Referral Self, USE FOR SELF REFERRALS. [facility], [address] [address], [place], [address], [place] tel:[phone] [facility] Ulcerative (chronic) proctitis without complications 5 Vincent Park. [address] [facility], [facility] [address], [place], [place], [address], [place]. tel:[phone] [facility], [address] [address], [place], [address], [place] tel:[phone] [facility] Ulcerative (chronic) proctitis without complications 5 Dusty Hood. [address] [place] [address], [address], [id number], [place]. tel:[phone] Referring Provider: Referral Self, USE FOR SELF REFERRALS. [facility], [address] [address], [place], [address], [place] tel:[phone] [facility] Ulcerative (chronic) proctitis without complications 5 Justin Bojorquez. [address] [facility], [facility] [address], [place], [address], [place]. tel:[phone] [facility], [address] [address], [place], [address], [place] tel:[phone] [facility] Ulcerative (chronic) proctitis without complications 5 Luis Fernando Vieyra. [address] [facility], [facility] [address], [place], [address], [place]. tel:[phone] Referring Provider: Referral Self, USE FOR SELF REFERRALS. [facility], [address] [address], [place], [address], [place] tel:[phone] [facility] Ulcerative (chronic) proctitis without complications 5 Justin Bojorquez. [address] [facility], [facility] [address], [place], [address], [place]. tel:[phone] [facility], [address] [address], [place], [address], [place] tel:[phone] [facility] Ulcerative (chronic) proctitis without complications Qasim-0 5 Dusty Hood. [address] [place] [address], [id number], [place]. tel:[phone] Referring Provider: Referral Self, USE FOR SELF REFERRALS. [facility], [address] [address], [place], [address], [place] tel:[phone] [facility] Ulcerative (chronic) proctitis without complications December-2 2 5 Justin Bojorquez. [address] [place] [address], [id number], [place]. tel:[phone] [facility], [address] [address], [place], [address], [place] tel:[phone] [facility] Ulcerative (chronic) proctitis without complications December-0 5 Chun Hampton. [address] [place] [address], [id number], [place]. tel:[phone] Referring Provider: Referral Self, USE FOR SELF REFERRALS. [facility], [address] [address], [place], [address], [place] tel:[phone] [facility] Ulcerative (chronic) proctitis without complications Nov-2 5 Justin Bojorquez. [address] [place] [address], [id number], [place]. tel:[phone] [facility], [address] [address], [place], [address], [place] tel:[phone] [facility] Ulcerative (chronic) proctitis without complications Apr-0 5 Luis Fernando Vieyra. [address] [place] [address], [id number], [place]. tel:[phone] Referring Provider: Referral Self, USE FOR SELF REFERRALS. [facility], [address] [address], [place], [address], [place] tel:[phone] [facility] Ulcerative (chronic) proctitis with rectal bleeding Apr-0 4- 5 Vincent Park. [address] [facility], [facility] [address], [place], [place], [address], [place]. tel:[phone] Referring Provider: Referral Self, USE FOR SELF REFERRALS. [facility], [address] [address], [place], [address], [place] tel:[phone] [facility] Ulcerative (chronic) proctitis with rectal bleeding Apr-0 2-202 5 Vincent Park. [address] [facility], [facility] [address], [place], [place], [address], [place]. tel:[phone] Referring Provider: [place], [address] [place] [address] [address], [place], [address] . tel:[phone] [facility], [address] [address], [place], [address], [place] tel:[phone] [facility] Ulcerative (chronic) proctitis without complications Oct-2 5 Justin Bojorquez. [address] [facility], [facility] [address], [place], [place], [address], [place]. tel:[phone] [facility], [address] [address], [place], [address], [place] tel:[phone] [facility] Ulcerative (chronic) proctitis without complications Oct-0 5 Dusty Hood. [address] [facility], [facility] [address], [place], [place], [address], [place]. tel:[phone] Referring Provider: Referral Self, USE FOR SELF REFERRALS. [facility], [address] [address], [place], [address], [place] tel:[phone] [facility] Ulcerative (chronic) proctitis without complications 5 Justin Bojorquez. [address] [facility], [facility] [address], [place], [place], [address], [place]. tel:[phone] [facility], [address] [address], [place], [address], [place] tel:[phone] [facility] Ulcerative (chronic) proctitis without complications 5 Blake Nesbitt. [address], [id number], [place]. tel:[phone] Referring Provider: Referral Self, USE FOR SELF REFERRALS. [facility], [address] [address], [place], [address], [place] tel:[phone] [facility] Ulcerative (chronic) proctitis without complications 5 Justin Bojorquez. [address], [id number], [place]. tel:[phone] [facility], [address] [address], [place], [address], [place] tel:[phone] [facility] Ulcerative (chronic) proctitis without complications 4 Justin Bojorquez. [address], [id number], [place]. tel:[phone] [facility], [address] [address], [place], [address], [place] tel:[phone] [facility] Ulcerative (chronic) proctitis without complications 4 Diann Alvarez. [address], [id number], [place]. tel:[phone] Referring Provider: Referral Self, USE FOR SELF REFERRALS. [facility], [address] [address], [place], [address], [place] tel:[phone] [facility] Ulcerative (chronic) proctitis without complications 4 Justin Bojorquez. [address], [id number], [place]. tel:[phone] [facility], [address] [address], [place], [address], [place] tel:[phone] [facility] Ulcerative (chronic) proctitis without complications 4 Dusty Hood. [address] [facility], [facility] [address], [place], [address], [place]. tel:[phone] Referring Provider: Referral Self, USE FOR SELF REFERRALS. [facility], [address] [address], [place], [address], [place] tel:[phone] [facility] Ulcerative (chronic) proctitis without complicationsUlc erative (chronic) proctitis with rectal bleeding Jun-0 4 Vincent Park. [address] [facility], [facility] [address], [place], [address], [place]. tel:[phone] Referring Provider: Referral Self, USE FOR SELF REFERRALS. [facility], [address] [address], [place], [address], [place] tel:[phone] [facility] Ulcerative (chronic) proctitis without complications May-2 4 Justin Bojorquez. [address] [place] [address], [id number], [place]. tel:[phone] [facility], [address] [address], [place], [address], [place] tel:[phone] [facility] Ulcerative (chronic) proctitis without complications May-0 4 Luis Fernando Vieyra. [address] [place] [address], [address], [id number], [place]. tel:[phone] Referring Provider: Referral Self, USE FOR SELF REFERRALS. [facility], [address] [address], [place], [address], [place] tel:[phone] [facility] Ulcerative (chronic) proctitis without complications Sep- 4 Justin Bojorquez. [address] [place] [address], [id number], [place]. tel:[phone] [facility], [address] [address], [place], [address], [place] tel:[phone] [facility] Ulcerative (chronic) proctitis without complications Sep-0 4 Blake Nesbitt. [address] [facility], [address], [id number], [place]. tel:[phone] Referring Provider: Referral Self, USE FOR SELF REFERRALS. [facility], [address] [address], [place], [address], [place] tel:[phone] [facility] Ulcerative (chronic) proctitis without complications 4 Justin Bojorquez. [address] [place] [address], [id number], [place]. tel:[phone] [facility], [address] [address], [place], [address], [place] tel:[phone] [facility] Ulcerative (chronic) proctitis without complications 4 Diann Carlsonahim. [address] [place] [address], [id number], [place]. tel:[phone] Referring Provider: Referral Self, USE FOR SELF REFERRALS. [facility], [address] [address], [place], [address], [place] tel:[phone] [facility] Ulcerative (chronic) proctitis without complications 4 Justin Bojorquez. [address] [place] [address], [id number], [place]. tel:[phone] Established Level 3 [facility], [address] [address], [place], [address], [place] tel:[phone] [facility] GI Symptoms or Concerns (chief complaint) Ulcerative (chronic) proctitis without complications 4 Justin Bojorquez. [address] [place] [address], [id number], [place]. tel:[phone] Referring Provider: Referral Self, USE FOR SELF REFERRALS. [facility], [address] [address], [place], [address], [place] tel:[phone] [facility] Ulcerative (chronic) proctitis without complications 4 Dusty Hood. [address] [place] [address], [place], [address], [place]. tel:[phone] Referring Provider: Referral Self, USE FOR SELF REFERRALS. [facility], [address] [address], [place], [address], [place] tel:[phone] [facility] Ulcerative (chronic) proctitis without complications 4 Vincent Park. [address] [facility], [facility] [address], [place], [address], [place]. tel:[phone] [facility], [address] [address], [place], [address], [place] tel:[phone] [facility] Ulcerative (chronic) proctitis without complications 4 Blake Nesbitt. [address] [facility], [address], [id number], [place]. tel:[phone] Referring Provider: Referral Self, USE FOR SELF REFERRALS. [facility], [address] [address], [place], [address], [place] tel:[phone] [facility] Ulcerative (chronic) proctitis without complicationsUlc erative (chronic) proctitis with rectal bleeding 4 Vincent Park. [address] [facility], [facility] [address], [place], [address], [place]. tel:[phone] [facility], [address] [address], [place], [address], [place] tel:[phone] [facility] Ulcerative (chronic) proctitis without complications 4 Luis Fernando Vieyra. [address] [facility], [facility] [address], [place], [address], [place]. tel:[phone] Referring Provider: Referral Self, USE FOR SELF REFERRALS. [facility], [address] [address], [place], [address], [place] tel:[phone] [facility] Ulcerative (chronic) proctitis with rectal bleeding Nov- 4 Vincent Park. [address] [facility], [facility] [address], [place], [address], [place]. tel:[phone] [facility], [address] [address], [place], [address], [place] tel:[phone] [facility] Ulcerative (chronic) proctitis without complications Apr-2 3-202 4 Vincent Park. [address] [facility], [facility] [address], [place], [address], [place]. tel:[phone] [facility], [address] [address], [place], [address], [place] tel:[phone] [facility] Ulcerative (chronic) proctitis without complications Apr-0 - 4 Amador Mcmahon. [address] [facility], [address], [id number], [place]. tel:[phone] Referring Provider: Referral Self, USE FOR SELF REFERRALS. [facility], [address] [address], [place], [address], [place] tel:[phone] [facility] Ulcerative (chronic) proctitis with rectal bleeding Oct-2 2- 4 Vincent Park. [address] [facility], [facility] [address], [place], [address], [place]. tel:[phone] [facility], [address] [address], [place], [address], [place] tel:[phone] [facility] Ulcerative (chronic) proctitis with rectal bleedingUlcerati ve (chronic) proctitis without complications Mar-0 - 4 Blake Nesbitt. [address] [facility], [facility] [address], [place], [address], [place]. tel:[phone] Referring Provider: Referral Self, USE FOR SELF REFERRALS. [facility], [address] [address], [place], [address], [place] tel:[phone] [facility] Ulcerative (chronic) proctitis with rectal bleeding Mar-0 - 4 Vincent Park. [address] [place] [address], [facility] [address], [place], [address], [place]. tel:[phone] Referring Provider: Referral Self, USE FOR SELF REFERRALS. [facility], [address] [address], [place], [address], [place] tel:[phone] [facility] Ulcerative (chronic) proctitis with rectal bleeding 4 Vincent Park. [address] [facility], [facility] [address], [place], [place], [address], [place]. tel:[phone] [facility], [address] [address], [place], [address], [place] tel:[phone] [facility] Ulcerative (chronic) proctitis without complications 4 Vincent Park. [address] [facility], [facility] [address], [place], [address], [place]. tel:[phone] [facility], [address] [address], [place], [address], [place] tel:[phone] [facility] Ulcerative (chronic) proctitis without complications 4 Chun Hampton. [address] [facility], [facility] [address], [place], [address], [place]. tel:[phone] Referring Provider: Referral Self, USE FOR SELF REFERRALS. [facility], [address] [address], [place], [address], [place] tel:[phone] [facility] Ulcerative (chronic) proctitis without complications 4 Vincent Park. [address] [facility], [facility] [address], [place], [place], [address], [place]. tel:[phone] [facility], [address] [address], [place], [address], [place] tel:[phone] [facility] Ulcerative (chronic) proctitis without complications 4 Kenton Gonzalez. [address] [facility], [facility] [address], [place], [address], [place]. tel:[phone] Referring Provider: Referral Self, USE FOR SELF REFERRALS. [facility], [address] [address], [place], [address], [place] tel:[phone] [facility] Ulcerative (chronic) proctitis without complications 3 Vincent Park. [address] [place] [address], [id number], [place]. tel:[phone] [facility], [address] [address], [place], [address], [place] tel:[phone] [facility] Ulcerative (chronic) proctitis without complications 3 Dusty Hood. [address] [place] [address], [id number], [place]. tel:[phone] Referring Provider: Referral Self, USE FOR SELF REFERRALS. [facility], [address] [address], [place], [address], [place] tel:[phone] [facility] Ulcerative (chronic) proctitis without complications 3 Vincent Park. [address] [place] [address], [id number], [place]. tel:[phone] [facility], [address] [address], [place], [address], [place] tel:[phone] [facility] Ulcerative (chronic) proctitis without complications 3 Vincent Park. [address] [place] [address], [id number], [place]. tel:[phone] [facility], [address] [address], [place], [address], [place] tel:[phone] [facility] Ulcerative (chronic) proctitis without complications 3 Diann Quinnim. [address] [place] [address], [id number], [place]. tel:[phone] Referring Provider: Referral Self, USE FOR SELF REFERRALS. [facility], [address] [address], [place], [address], [place] tel:[phone] [facility] Ulcerative (chronic) proctitis without complications 3 Vincent Park. [address] [place] [address], [id number], [place]. tel:[phone] [facility], [address] [address], [place], [address], [place] tel:[phone] [facility] Ulcerative (chronic) proctitis without complications Apr-0 3 Blake Nesbitt. [address] [place] [address], [id number], [place]. tel:[phone] Referring Provider: Referral Self, USE FOR SELF REFERRALS. [facility], [address] [address], [place], [address], [place] tel:[phone] [facility] Ulcerative (chronic) proctitis with rectal bleeding Apr-0 3 Vincent Park. [address] [place] [address], [id number], [place]. tel:[phone] Referring Provider: Referral Self, USE FOR SELF REFERRALS. [facility], [address] [address], [place], [address], [place] tel:[phone] [facility] Ulcerative (chronic) proctitis without complications 3 Vincent Park. [address] [place] [address], [id number], [place]. tel:[phone] Offic/outpt E&m Estab Mod-hi 2 [facility], [address] [address], [place], [id number], [place] tel:[phone] [facility] GI Symptoms or Concerns (chief complaint) Ulcerative (chronic) proctitis without complicationsMul tiple joint painPersonal history of colonic polyps 3 Vincent Park. [address] [place] [address], [id number], [place]. tel:[phone] Referring Provider: Referral Self, USE FOR SELF REFERRALS. [facility], [address] [address], [place], [id number], [place] tel:[phone] Infusion Ernest Ulcerative (chronic) proctitis without complications 3 Malick Camacho. [address] [place] [address], [id number], [place]. tel:[phone] Referring Provider: Referral Self, USE FOR SELF REFERRALS. [facility], [address] [address], [place], [address], [place] tel:[phone] Infusion [place] Ulcerative (chronic) proctitis without complications 3 Vincent Park. [address] [place] [address], [id number], [place]. tel:[phone] [facility], [address] [address], [place], [address], [place] tel:[phone] Infusion [place] Ulcerative (chronic) proctitis without complications 3 Chandlerjuventino URIBE Juliette. [address] [place] [address], [id number], [place]. tel:[phone] [facility], [address] [address], [place], [address], [place] tel:[phone] Infusion Ernest Ulcerative (chronic) proctitis without complications 3 Tevin Russell. [address] [place] [address], [id number], [place]. tel:[phone] Referring Provider: Referral Self, USE FOR SELF REFERRALS. [facility], [address] [address], [place], [address], [place] tel:[phone] [facility] Arthralgia, unspecified joint 3 Vincent Park. [address] [place] [address], [id number], [place]. tel:[phone] Referring Provider: Referral Self, USE FOR SELF REFERRALS. [facility], [address] [address], [place], [address], [place] tel:[phone] Infusion Ernest Ulcerative (chronic) proctitis without complications 3 Vincent Park. [address], [id number], [place]. tel:[phone] [facility], [address] [address], [place], [address], [place] tel:[phone] Infusion Ernest Ulcerative (chronic) proctitis without complications 3 Kenton Gonzalez. [address], [id number], [place]. tel:[phone] Referring Provider: Referral Self, USE FOR SELF REFERRALS. [facility], [address] [address], [place], [address], [place] tel:[phone] [facility] Ulcerative (chronic) proctitis without complications 3 Vincent Park. [address] [place] [address], [id number], [place]. tel:[phone] [facility], [address] [address], [place], [address], [place] tel:[phone] Infusion [place] Ulcerative (chronic) proctitis without complications 3 Chun Hampton. [address] [place] [address], [id number], [place]. tel:[phone] Referring Provider: Referral Self, USE FOR SELF REFERRALS. [facility], [address] [address], [place], [address], [place] tel:[phone] [facility] Ulcerative (chronic) proctitis with rectal bleeding 3 Vincent Park. [address] [place] [address], [id number], [place]. tel:[phone] Referring Provider: Referral Self, USE FOR SELF REFERRALS. [facility], [address] [address], [place], [address], [place] tel:[phone] [facility] Ulcerative (chronic) proctitis without complications Oct- 3 Vincent Park. [address] [place], [place] [address], [place], [address], [place]. tel:[phone] [facility], [address] [address], [place], [address], [place] tel:[phone] Infusion [place] Ulcerative (chronic) proctitis without complications 3 Chey Foster. [address] [facility], [facility] [address], [place], [address], [place]. tel:[phone] Referring Provider: Referral Self, USE FOR SELF REFERRALS. [facility], [address] [address], [place], [address], [place] tel:[phone] [facility] Ulcerative (chronic) proctitis without complications 3 Vincent Park. [facility], [address], [id number], [place]. tel:[phone] [facility], [address] [address], [place], [address], [place] tel:[phone] Infusion Ernest Ulcerative (chronic) proctitis without complications 3 Gilbert Tello. [address] [place] [address], [id number], [place]. tel:[phone] Referring Provider: Referral Self, USE FOR SELF REFERRALS. [facility], [address] [address], [place], [address], [place] tel:[phone] [facility] Ulcerative (chronic) proctitis without complications 2 Vincent Park. [address] [facility], [facility] [address], [place], [address], [place]. tel:[phone] [facility], [address] [address], [place], [address], [place] tel:[phone] Infusion [facility] Ulcerative (chronic) proctitis without complications 2 Malick Camacho. [address] [place] [address], [facility] [address], [place], [address], [place]. tel:[phone] Referring Provider: Referral Self, USE FOR SELF REFERRALS. [facility], [address] [address], [place], [id number], [place] tel:[phone] Infusion Ernest Ulcerative (chronic) proctitis without complications 2 Vincent Park. [address] [facility], [place] [address], [place], [place], [address], [place]. tel:[phone] Offic/outpt E&m Estab Low-mod [facility], [address] [address], [place], [id number], [place] tel:[phone] [facility] GI Symptoms or Concerns (chief complaint) Ulcerative (chronic) proctitis without complicationsPer chacorta history of colonic polyps 2 Vincent Park. [address] [facility], [address], [id number], [place]. tel:[phone] Referring Provider: Referral Self, USE FOR SELF REFERRALS. [facility], [address] [address], [place], [address], [place] tel:[phone] Infusion Ernest Ulcerative (chronic) proctitis without complications 2 Diann Alvarez. [address] [facility], [facility] [address], [place], [address], [place]. tel:[phone] Referring Provider: Referral Self, USE FOR SELF REFERRALS. [facility], [address] [address], [place], [id number], [place] tel:[phone] [facility] Ulcerative (chronic) proctitis with rectal bleeding 2 Vincent Park. [address] [facility], [facility] [address], [place], [address], [place]. tel:[phone] Referring Provider: Referral Self, USE FOR SELF REFERRALS. [facility], [address] [address], [place], [address], [place] tel:[phone] Infusion Ernest Ulcerative (chronic) proctitis without complications 2 Tevin Russell. [address], [id number], [place]. tel:[phone] Referring Provider: Referral Self, USE FOR SELF REFERRALS. [facility], [address] [address], [place], [id number], [place] tel:[phone] Infusion [facility] Ulcerative (chronic) proctitis without complications 2 Diann Alvarez. [address], [id number], [place]. tel:[phone] Referring Provider: Referral Self, USE FOR SELF REFERRALS. Offic/outpt E&m Estab Mod-hi 2 [facility], [address] [address], [place], [address], [place] tel:[phone] [facility] GI Symptoms or Concerns (chief complaint) Ulcerative (chronic) proctitis without complicationsRec jung urgencyFrequent bowel movementsPersona l history of colonic polyps 2 Vincent Park. [address] [place] [address], [id number], [place]. tel:[phone] Referring Provider: Referral Self, USE FOR SELF REFERRALS. [facility], [address] [address], [facility] [place], [address], [place] tel:[phone] [facility] GI Symptoms or Concerns (chief complaint) Colorectal polyp detected on colonoscopyPerso nal history of colonic polypsUlcerative proctitis without complicationBeni gn neoplasm of transverse colonUlcerative (chronic) proctitis without complicationsBen ign neoplasm of transverse colonPersonal history of colonic polyps 2 Vincent Park. [address] [place] [address], [id number], [place]. tel:[phone] Referring Provider: Ben Mendoza, [address] [place] [address], [address]. tel:[phone] [facility], [address] [address], [place], [address], [place] tel:[phone] [facility] Diarrhea, unspecified 2 Vincent Park. [address] [place] [address] [place], [facility] [address], [place], [address], [place]. tel:[phone] [facility], [address] [address], [place], [address], [place] tel:[phone] Infusion Ernest Ulcerative (chronic) proctitis with rectal bleeding 2 Chey Foster. [address] [facility], [facility] [address], [place], [address], [place]. tel:[phone] Referring Provider: Referral Self, USE FOR SELF REFERRALS. [facility], [address] [address], [place], [address], [place] tel:[phone] Infusion [facility] Ulcerative (chronic) proctitis with rectal bleeding 2 Tevin Russell. [facility], [address], [id number], [place]. tel:[phone] Referring Provider: Referral Self, USE FOR SELF REFERRALS. [facility], [address] [address], [place], [address], [place] tel:[phone] [facility] Ulcerative (chronic) proctitis with rectal bleeding 2 Vincent Park. [address] [facility], [facility] [address], [place], [address], [place]. tel:[phone] Referring Provider: Referral Self, USE FOR SELF REFERRALS. [facility], [address] [address], [place], [address], [place] tel:[phone] [facility]fusion [facility] Ulcerative (chronic) proctitis with rectal bleeding 2 Tyrese Lyman. [address] [facility], [address], [id number], [place]. tel:[phone] Referring Provider: Referral Self, USE FOR SELF REFERRALS. Established Level 4 [facility], [address] [address], [place], [address], [place] tel:[phone] [facility] GI Symptoms or Concerns (chief complaint) Ulcerative (chronic) proctitis without complicationsPer chacorta history of colonic polyps 2 Vincent Park. [address] [facility], [facility] 500, [place], [place], [address], [place]. tel:[phone] Referring Provider: Referral Self, USE FOR SELF REFERRALS. [facility], [address] [address], [place], [address], [place] tel:[phone] Infusion [facility] Ulcerative (chronic) proctitis with rectal bleeding 1 Chey Foster. [address] [facility], [facility] 500, [place], [place], [address], [place]. tel:[phone] Referring Provider: Referral Self, USE FOR SELF REFERRALS. [facility], [address] [address], [place], [address], [place] tel:[phone] Infusion Ernest Ulcerative (chronic) proctitis with rectal bleeding 1 Chey Foster. [address] [facility], [facility] [address], [place], [address], [place]. tel:[phone] Referring Provider: Referral Self, USE FOR SELF REFERRALS. [facility], [address] [address], [place], [address], [place] tel:[phone] [facility] Tingling 1 Vincent Park. [address] [facility], [facility] [address], [place], [address], [place]. tel:[phone] [facility], [address] [address], [place], [address], [place] tel:[phone] Infusion [place] Ulcerative (chronic) proctitis with rectal bleeding 1 Orquidea Kruger. [address] [facility], [facility] 500, [place], [place], [address], [place]. tel:[phone] Referring Provider: Slick Sánchez, [address] [facility] [address], [place], [address] . tel:[phone] [facility], [address] [address], [place], [address], [place] tel:[phone] [facility] Ulcerative (chronic) proctitis with rectal bleeding 1 Vincent Park. [address] [facility], [facility] [address], [place], [address], [place]. tel:[phone] [facility], [address] [address], [place], [address], [place] tel:[phone] [facility] No Information 1 Vincent Park. [address] [facility], [facility] [address], [place], [address], [place]. tel:[phone] [facility], [address] [address], [place], [place], [address], [place] tel:[phone] [facility] GI Symptoms or Concerns (chief complaint) Diarrhea, unspecifiedUlcer ative (chronic) proctitis with rectal bleedingUlcerati ve (chronic) proctitis with rectal bleedingUlcerati ve (chronic) proctitis with rectal bleeding 1 Vincent Park. [address] [facility], [address], [id number], [place]. tel:[phone] Referring Provider: Referral Self, USE FOR SELF REFERRALS. [facility], [address] [address], [place], [address], [place] tel:[phone] [facility] No Information 1 Vincent Park. [address] [facility], [facility] [address], [place], [address], [place]. tel:[phone] [facility], [address] [address], [place], [address], [place] tel:[phone] [facility] Ulcerative (chronic) proctitis with rectal bleeding 1 Vincent Park. [address] [facility], [facility] [address], [place], [address], [place]. tel:[phone] [facility], [address] [address], [place], [address], [place] tel:[phone] [facility] Ulcerative (chronic) proctitis without complications 1 Vincent Park. [address] [place] [address], [id number], [place]. tel:[phone] Referring Provider: Referral Self, USE FOR SELF REFERRALS. [facility], [address] [address], [place], [id number], [place] tel:[phone] [facility] Ulcerative proctitis without complication 1 Vincent Park. [address] [place] [address], [address], [place]. tel:[phone] [facility], [address] [address], [place], [address], [place] tel:[phone] [facility] Ulcerative proctitis without complicationUlce rative (chronic) proctitis with rectal bleeding 1 Vincent Park. [address] [place] [address], [address], [place]. tel:[phone] Referring Provider: Referral Self, USE FOR SELF REFERRALS. Telephone E&M I 5-10 Min ANASTASIA [facility], [address] [address], [place], [id number], [place] tel:[phone] [facility] GI Symptoms or Concerns (chief complaint) Ulcerative (chronic) proctitis with rectal bleedingPersonal history of colonic polypsHemochroma tosis carrier 1 Vincent Park. [address] [place] [address], [id number], [place]. tel:[phone] Referring Provider: Referral Self, USE FOR SELF REFERRALS. [facility], [address] [address], [place], [address], [place] tel:[phone] [facility] No Information 1 Vincent Park. [address] [place] [address], [id number], [place]. tel:[phone] Virtual Visit E&m Estab Low-mod 15-25 Min [facility], [address] [address], [place], [address], [place] tel:[phone] [facility] GI Symptoms or Concerns (chief complaint) Ulcerative proctitis without complicationPers onal history of colonic polypsHemochroma tosis carrier Nov- 0 Vincent Park. [address] [place] [address], [address], [address], [place]. tel:[phone] Referring Provider: Ben Mendoza, [address] [place] [address], [address]. tel:[phone] Offic/outpt E&m Estab Mod-hi 2 [facility], [address] [address], [place], [id number], [place] tel:[phone] [facility] GI Symptoms or Concerns (chief complaint) Ulcerative proctitis without complicationLowe r abdominal painDiarrhea, unspecifiedConst ipation, unspecified constipation typePersonal history of colonic polypsHemochroma tosis carrierChest pain, unspecified type 0 Vincent Park. [address] [place] [address], [address], [id number], [place]. tel:[phone] Referring Provider: Referral Self, USE FOR SELF REFERRALS. [facility], [address] [address], [place], [id number], [place] tel:[phone] [facility] Abnormal iron saturation 0 Vincent Park. [address] [facility], [address], [id number], [place]. tel:[phone] [facility], [address] [address], [place], [address], [place] tel:[phone] [facility] Diarrhea, unspecified 0 Vincent Park. [address] [place] [address], [address], [address], [place]. tel:[phone] Referring Provider: Referral Self, USE FOR SELF REFERRALS. [facility], [address] [address], [place], [id number], [place] tel:[phone] [facility] Ulcerative (chronic) proctitis with rectal bleedingDiarrhea , unspecified typeUlcerative (chronic) proctitis with rectal bleeding 0 Vincent Park. [address] [facility], [facility] 500, [place], [place], [address], [place]. tel:[phone] Referring Provider: Referral Self, USE FOR SELF REFERRALS. [facility], [address] [address], [place], [id number], [place] tel:[phone] [facility] Abnormal level of blood mineral 0 Vincent Park. [address] [place] [address], [facility] 500, [place], [place], [address], [place]. tel:[phone] Referring Provider: Referral Self, USE FOR SELF REFERRALS. [facility], [address] [address], [place], [id number], [place] tel:[phone] [facility] No Information 9 No Information [facility], [address] [address], [place], [id number], [place] tel:[phone] [facility] Abnormal iron saturation 9 Vincent Park. [address] [place] [address], [facility] 500, [place], [place], [address], [place]. tel:[phone] Offic/outpt E&m Estab Mod-hi 2 [facility], [address] [address], [place], [id number], [place] tel:[phone] [facility] GI Symptoms or Concerns (chief complaint) Ulcerative proctitis with rectal bleedingLower abdominal painRectal urgencyPersonal history of colonic polypsChest pain, unspecified typePalpitations 9 Vincent Park. [address] [place] [address], [facility] 500, [place], [place], [address], [place]. [phone] Referring Provider: Xavier Kaur MD, [address] [place] [address] 500, [place], [address] . tel:[phone] [facility], [address] [address], [place], [id number], [place] tel:[phone] [facility] No Information 9 Vincent Park. [address] [facility], [facility] [address], [place], [address], [place]. tel:[phone] Offic/outpt E&m Estab Mod-hi 2 [facility], [address] [address], [place], [address], [place] tel:[phone] [facility] GI Symptoms or Concerns (chief complaint) Ulcerative proctitis without complicationLoos e stoolsPersonal history of colonic polypsRectal urgency 9 Vincent Park. [address] [facility], [address], [id number], [place]. tel:[phone] Referring Provider: Referral Self, USE FOR SELF REFERRALS. [facility], [address] [address], [place], [address], [place] tel:[phone] [facility] Diarrhea, unspecified type 9 Vincent Park. [address] [facility], [address], [id number], [place]. tel:[phone] [facility], [address] [address], [place], [address], [place] tel:[phone] [facility] No Information 9 Vincent Park. [address] [facility], [facility] [address], [place], [address], [place]. tel:[phone] [facility], [address] [address], [place], [address], [place] tel:[phone] [facility] Other fecal abnormalities 9 Vincent Park. [address] [facility], [address], [id number], [place]. tel:[phone] Referring Provider: Callie Seals MD, [address] [place], [address]. tel:[phone] Offic/outpt E&m New Mod-hi [facility], [address] [address], [place], [place], [address], [place] tel:[phone] [facility] GI Symptoms or Concerns (chief complaint) Ulcerative proctitis with rectal bleedingLoose stoolsLower abdominal painRectal urgencyPersonal history of colonic polypsFever, unspecified fever cause 0201 9 Vincent [facility]. [address] [facility], [facility] [address], [place], [address], [place]. tel:[phone] Referring Provider: Callie Seals MD, [address] [place], [address]. tel:[phone] Family History Family Member Type Diagnosis Age [...] B administered Source: New Immunization Record Prevnar 13 administered Note: ESILLAGEIC bi-d irectional interface ; Source: Other Registry Pneumococcal conjugate PCV 13 administere d Source: New Immunization Record tetanus toxoid, reduced diphtheria toxoid, and acellular pertussis vaccine, adsorbed administered Note: [employer] bi-direct ional interface ; Source: Other Registry Payers Payer name Insurance type Covered republican ID Authoriza tion(s) [employer] [place] [id number] [employer] [place] BL [id number] [employer] CI [id number] [employer] CI [id number] [employer] CI [id number] [employer] CI [id number] [employer] CI [id number] Social History Type Description Quantity Date Captured Comments Alcohol Use Details Unknown Caffeine Use Details Unknown Tobacco Use Status No Information Smoking Status No Information Sex Male Chief Complaint And Reason For Visit No Information Reason For Referral Reason For Referral No Information Plan Of Treatment Date Type Action Status Goal Hep A Vaccine (2nd) due Goal Hep B Vaccine (1st) due Goal Vitamin D, 25-Hydroxy. Due o n due Goal Hep A Vaccine (1st) due Goal Smoking status. Due on due Goal Colonoscopy. Due on 023 due Goal Influenza. Due on due Goal Tdap. Due on due Goal Prevnar 20. Due on 25 due Goal Hep B Vaccine (2nd) due Goal Dermatology - Sk in Screening. Due on due Goal DEXA Bone Densit y Study. Due on due Goal Hep B Vaccine (2nd) due Goal Hep B Vaccine (1st) due Goal Prevnar 20. Due on due Goal Tdap. Due on due Goal Vitamin D, 25-Hydroxy. Due o n due Goal Hep A Vaccine (1st) due Goal DEXA Bone Densit y Study. Due on due Goal Colonoscopy. Due on due Goal Influenza. Due on due Goal Dermatology - Sk in Screening. Due on due Goal Hep A Vaccine (2nd) due Goal Smoking status. Due on due Goal Hep B Vaccine (2nd) due Goal Vitamin D, 25-Hydroxy. Due o n due Goal Prevnar 20. Due on due Goal Influenza. Due on due Goal Hep B Vaccine (1st) due Goal Hep A Vaccine (2nd) due Goal Smoking status. Due on due Goal Tdap. Due on due Goal Dermatology - Sk in Screening. Due on due Goal DEXA Bone Densit y Study. Due on due Goal Colonoscopy. Due on 023 due Goal Hep A Vaccine (1st) due Goal Smoking status. Due on due Goal Colonoscopy. Due on 023 due Goal Vitamin D, 25-Hydroxy. Due o n due Goal Hep A Vaccine (2nd) due Goal DEXA Bone Densit y Study. Due on due Goal Tdap. Due on due Goal Dermatology - Sk in Screening. Due on due Goal Hep A Vaccine (1st) due Goal Hep B Vaccine (1st) due Goal Influenza. Due on due Goal Prevnar 20. Due on due Goal Hep B Vaccine (2nd) due Goal Tdap. Due on due Goal Vitamin D, 25-Hydroxy. Due o n due Goal Hep A Vaccine (1st) due Goal Dermatology - Sk in Screening. Due on due Goal Hep B Vaccine (1st) due Goal Influenza. Due on due Goal Smoking status. Due on due Goal Colonoscopy. Due on 023 due Goal DEXA Bone Densit y Study. Due on due Goal Hep A Vaccine (2nd) due Goal Prevnar 20. Due on due Goal Hep B Vaccine (2nd) due Goal Vitamin D, 25-Hydroxy. Due o n due Goal Colonoscopy. Due on 023 due Goal Hep A Vaccine (2nd) due Goal Tdap. Due on due Goal Influenza. Due on due Goal Hep B Vaccine (2nd) due Goal Hep A Vaccine (1st) due Goal Dermatology - Sk in Screening. Due on due Goal Hep B Vaccine (1st) due Goal DEXA Bone Densit y Study. Due on due Goal Prevnar 20. Due on due Goal Smoking status. Due on due Goal Hep B Vaccine (2nd) due Goal Prevnar 20. Due on due Goal Hep A Vaccine (1st) due Goal Vitamin D, 25-Hydroxy. Due o n due Goal Smoking status. Due on due Goal Tdap. Due on due Goal Colonoscopy. Due on 023 due Goal Hep A Vaccine (2nd) due Goal Hep B Vaccine (1st) due Goal Dermatology - Sk in Screening. Due on due Goal Influenza. Due on due Goal DEXA Bone Densit y Study. Due on due Goal Influenza. Due on due Goal Hep B Vaccine (2nd) due Goal Hep B Vaccine (1st) due Goal Dermatology - Sk in Screening. Due on due Goal Tdap. Due on due Goal Hep A Vaccine (2nd) due Goal DEXA Bone Densit y Study. Due on due Goal Colonoscopy. Due on 023 due Goal Smoking status. Due on due Goal Prevnar 20. Due on 25 due Goal Vitamin D, 25-Hydroxy. Due o n due Goal Hep A Vaccine (1st) due Goal Dermatology - Sk in Screening. Due on due Goal Hep B Vaccine (2nd) due Goal Colonoscopy. Due on due Goal DEXA Bone Densit y Study. Due on due Goal Smoking status. Due on due Goal Hep B Vaccine (1st) due Goal Prevnar 20. Due on 25 due Goal Vitamin D, 25-Hydroxy. Due o n due Goal Tdap. Due on due Goal Influenza. Due on due Goal Hep A Vaccine (1st) due Goal Hep A Vaccine (2nd) due Goal Smoking status. Due on due Goal Hep A Vaccine (2nd) due Goal Dermatology - Sk in Screening. Due on due Goal Hep A Vaccine (1st) due Goal Hep B Vaccine (2nd) due Goal Vitamin D, 25-Hydroxy. Due o n due Goal Hep B Vaccine (1st) due Goal Tdap. Due on due Goal Prevnar 20. Due on 25 due Goal Influenza. Due on due Goal Colonoscopy. Due on 023 due Goal DEXA Bone Densit y Study. Due on due Goal Hep B Vaccine (1st) due Goal Tdap. Due on due Goal Prevnar 20. Due on due Goal Vitamin D, 25-Hydroxy. Due o n due Goal Smoking status. Due on due Goal Hep A Vaccine (2nd) due Goal Hep A Vaccine (1st) due Goal Dermatology - Sk in Screening. Due on due Goal DEXA Bone Densit y Study. Due on due Goal Colonoscopy. Due on 023 due Goal Hep B Vaccine (2nd) due Goal Influenza. Due on due Goal Smoking status. Due on due Goal Vitamin D, 25-Hydroxy. Due o n due Goal Prevnar 20. Due on due Goal Influenza. Due on due Goal Hep A Vaccine (2nd) due Goal Hep B Vaccine (1st) due Goal Hep A Vaccine (1st) due Goal Tdap. Due on due Goal DEXA Bone Densit y Study. Due on due Goal Colonoscopy. Due on 023 due Goal Hep B Vaccine (2nd) due Goal Dermatology - Sk in Screening. Due on due Goal Tdap. Due on due Goal Influenza. Due on due Goal Hep B Vaccine (1st) due Goal Hep B Vaccine (2nd) due Goal Smoking status. Due on due Goal DEXA Bone Densit y Study. Due on due Goal Prevnar 20. Due on due Goal Dermatology - Sk in Screening. Due on due Goal Hep A Vaccine (1st) due Goal Vitamin D, 25-Hydroxy. Due o n due Goal Hep A Vaccine (2nd) due Goal Colonoscopy. Due on due Goal DEXA Bone Densit y Study. Due on due Goal Hep B Vaccine (2nd) due Goal Colonoscopy. Due on due Goal Smoking status. Due on due Goal Hep B Vaccine (1st) due Goal Hep A Vaccine (2nd) due Goal Prevnar 20. Due on due Goal Tdap. Due on due Goal Vitamin D, 25-Hydroxy. Due o n due Goal Influenza. Due on due Goal Dermatology - Sk in Screening. Due on due Goal Hep A Vaccine (1st) due Goal Dermatology - Sk in Screening. Due on due Goal Tdap. Due on due Goal Colonoscopy. Due on due Goal Prevnar 20. Due on due Goal Hep B Vaccine (1st) due Goal Hep B Vaccine (2nd) due Goal Influenza. Due on due Goal Smoking status. Due on due Goal Vitamin D, 25-Hydroxy. Due o n due Goal Hep A Vaccine (1st) due Goal Hep A Vaccine (2nd) due Goal DEXA Bone Densit y Study. Due on due Goal Colonoscopy. Due on due Goal Influenza. Due on due Goal Hep A Vaccine (2nd) due Goal DEXA Bone Densit y Study. Due on due Goal Prevnar 20. Due on due Goal Dermatology - Sk in Screening. Due on due Goal Smoking status. Due on due Goal Hep A Vaccine (1st) due Goal Vitamin D, 25-Hydroxy. Due o n due Goal Tdap. Due on due Goal Hep B Vaccine (2nd) due Goal Hep B Vaccine (1st) due Goal Hep A Vaccine (1st) due Goal Hep B Vaccine (1st) due Goal Hep A Vaccine (2nd) due Goal Influenza. Due on due Goal Colonoscopy. Due on 023 due Goal Vitamin D, 25-Hydroxy. Due o n due Goal Hep B Vaccine (2nd) due Goal Dermatology - Sk in Screening. Due on due Goal DEXA Bone Densit y Study. Due on due Goal Tdap. Due on due Goal Prevnar 20. Due on 25 due Goal Smoking status. Due on due Goal Smoking status. Due on due Goal Hep A Vaccine (1st) due Goal Vitamin D, 25-Hydroxy. Due o n due Goal Dermatology - Sk in Screening. Due on due Goal Hep B Vaccine (2nd) due Goal Influenza. Due on due Goal Tdap. Due on due Goal DEXA Bone Densit y Study. Due on due Goal Colonoscopy. Due on 023 due Goal Hep A Vaccine (2nd) due Goal Prevnar 20. Due on due Goal Hep B Vaccine (1st) due Goal Vitamin D, 25-Hydroxy. Due o n due Goal Hep B Vaccine (1st) due Goal Hep B Vaccine (2nd) due Goal Dermatology - Sk in Screening. Due on due Goal Influenza. Due on due Goal Smoking status. Due on due Goal DEXA Bone Densit y Study. Due on due Goal Colonoscopy. Due on 023 due Goal Prevnar 20. Due on 25 due Goal Hep A Vaccine (2nd) due Goal Tdap. Due on due Goal Hep A Vaccine (1st) due Goal Tdap. Due on due Goal Hep A Vaccine (1st) due Goal DEXA Bone Densit y Study. Due on due Goal Smoking status. Due on due Goal Vitamin D, 25-Hydroxy. Due o n due Goal Influenza. Due on due Goal Dermatology - Sk in Screening. Due on due Goal Hep A Vaccine (2nd) due Goal Hep B Vaccine (2nd) due Goal Prevnar 20. Due on due Goal Hep B Vaccine (1st) due Goal Colonoscopy. Due on due Goal Colonoscopy. Due on 023 due Goal Tdap. Due on due Goal DEXA Bone Densit y Study. Due on due Goal Vitamin D, 25-Hydroxy. Due o n due Goal Hep A Vaccine (2nd) due Goal Hep B Vaccine (2nd) due Goal Dermatology - Sk in Screening. Due on due Goal Hep B Vaccine (1st) due Goal Influenza. Due on due Goal Hep A Vaccine (1st) due Goal Prevnar 20. Due on due Goal Smoking status. Due on due Goal Dermatology - Sk in Screening. Due on due Goal DEXA Bone Densit y Study. Due on due Goal Hep A Vaccine (2nd) due Goal Hep A Vaccine (1st) due Goal Hep B Vaccine (1st) due Goal Hep B Vaccine (2nd) due Goal Vitamin D, 25-Hydroxy. Due o n due Goal Colonoscopy. Due on due Goal Smoking status. Due on due Goal Influenza. Due on due Goal Prevnar 20. Due on due Goal Tdap. Due on due Goal Hep A Vaccine (1st) due Goal Vitamin D, 25-Hydroxy. Due o n due Goal Prevnar 20. Due on due Goal Hep A Vaccine (2nd) due Goal Hep B Vaccine (2nd) due Goal Smoking status. Due on due Goal Hep B Vaccine (1st) due Goal DEXA Bone Densit y Study. Due on due Goal Tdap. Due on due Goal Influenza. Due on due Goal Colonoscopy. Due on due Goal Dermatology - Sk in Screening. Due on due Goal Influenza. Due on due Goal Dermatology - Sk in Screening. Due on due Goal Tdap. Due on due Goal DEXA Bone Densit y Study. Due on due Goal Hep B Vaccine (1st) due Goal Hep B Vaccine (2nd) due Goal Smoking status. Due on due Goal Hep A Vaccine (1st) due Goal Vitamin D, 25-Hydroxy. Due o n due Goal Hep A Vaccine (2nd) due Goal Prevnar 20. Due on due Goal Colonoscopy. Due on due Goal Vitamin D, 25-Hydroxy. Due o n due Goal Tdap. Due on due Goal Hep B Vaccine (2nd) due Goal Hep A Vaccine (2nd) due Goal DEXA Bone Densit y Study. Due on due Goal Dermatology - Sk in Screening. Due on due Goal Hep B Vaccine (1st) due Goal Prevnar 20. Due on due Goal Smoking status. Due on due Goal Influenza. Due on due Goal Hep A Vaccine (1st) due Goal Colonoscopy. Due on due Goal Tdap. Due on due Goal Smoking status. Due on due Goal Dermatology - Sk in Screening. Due on due Goal Hep B Vaccine (1st) due Goal Colonoscopy. Due on due Goal Vitamin D, 25-Hydroxy. Due o n due Goal Hep A Vaccine (2nd) due Goal DEXA Bone Densit y Study. Due on due Goal Influenza. Due on due Goal Prevnar 20. Due on due Goal Hep B Vaccine (2nd) due Goal Hep A Vaccine (1st) due Goal Influenza. Due on due Goal Hep B Vaccine (2nd) due Goal Smoking status. Due on due Goal Prevnar 20. Due on due Goal Hep A Vaccine (2nd) due Goal DEXA Bone Densit y Study. Due on due Goal Hep B Vaccine (1st) due Goal Tdap. Due on due Goal Hep A Vaccine (1st) due Goal Dermatology - Sk in Screening. Due on due Goal Colonoscopy. Due on due Goal Vitamin D, 25-Hydroxy. Due o n due Goal Influenza. Due on due Goal DEXA Bone Densit y Study. Due on due Goal Vitamin D, 25-Hydroxy. Due o n due Goal Prevnar 20. Due on due Goal Hep B Vaccine (1st) due Goal Dermatology - Sk in Screening. Due on due Goal Hep A Vaccine (1st) due Goal Tdap. Due on due Goal Hep A Vaccine (2nd) due Goal Hep B Vaccine (2nd) due Goal Smoking status. Due on due Goal Colonoscopy. Due on 023 due Goal Colonoscopy. Due on 023 due Goal Hep A Vaccine (1st) due Goal Prevnar 20. Due on due Goal Tdap. Due on due Goal Smoking status. Due on due Goal Hep A Vaccine (2nd) due Goal Vitamin D, 25-Hydroxy. Due o n due Goal Influenza. Due on due Goal DEXA Bone Densit y Study. Due on due Goal Dermatology - Sk in Screening. Due on due Goal Hep B Vaccine [...] Due o n due Goal DEXA Bone Densit y Study. Due on due Goal Dermatology - Sk in Screening. Due on due Goal Smoking status. Due on due Goal Hep B Vaccine (1st) due Goal Influenza. Due on due Goal Hep A Vaccine (1st) due Goal Hep B Vaccine (2nd) due Goal Tdap. Due on due Goal Vitamin D, 25-Hydroxy. Due o n due Goal Colonoscopy. Due on due Goal Dermatology - Sk in Screening. Due on due Goal Smoking status. Due on due Goal Prevnar 20. Due on due Goal Hep A Vaccine (2nd) due Goal DEXA Bone Densit y Study. Due on due Goal Vitamin D, 25-Hydroxy. Due o n due Goal Colonoscopy. Due on due Goal DEXA Bone Densit y Study. Due on due Goal Hep A Vaccine (1st) due Goal Influenza. Due on due Goal Hep B Vaccine (2nd) due Goal Dermatology - Sk in Screening. Due on due Goal Smoking status. Due on due Goal Hep A Vaccine (2nd) due Goal Hep B Vaccine (1st) due Goal Tdap. Due on due Goal Prevnar 20. Due on due Goal Hep A Vaccine (1st) due Goal Hep B Vaccine (2nd) due Goal Prevnar 20. Due on due Goal Smoking status. Due on due Goal Colonoscopy. Due on due Goal Dermatology - Sk in Screening. Due on due Goal Tdap. Due on due Goal Influenza. Due on due Goal Hep A Vaccine (2nd) due Goal DEXA Bone Densit y Study. Due on due Goal Vitamin D, 25-Hydroxy. Due o n due Goal Hep B Vaccine (1st) due Goal Dermatology - Sk in Screening. Due on due Goal Hep B Vaccine (2nd) due Goal Prevnar 20. Due on due Goal Hep A Vaccine (2nd) due Goal Colonoscopy. Due on 023 due Goal Hep A Vaccine (1st) due Goal Tdap. Due on due Goal Vitamin D, 25-Hydroxy. Due o n due Goal DEXA Bone Densit y Study. Due on due Goal Smoking status. Due on due Goal Influenza. Due on due Goal Hep B Vaccine (1st) due Goal Dermatology - Sk in Screening. Due on due Goal Smoking status. Due on due Goal Vitamin D, 25-Hydroxy. Due o n due Goal Hep A Vaccine (1st) due Goal DEXA Bone Densit y Study. Due on due Goal Colonoscopy. Due on 023 due Goal Hep A Vaccine (2nd) due Goal Hep B Vaccine (1st) due Goal Prevnar 20. Due on due Goal Tdap. Due on due Goal Influenza. Due on 4 due Goal Hep B Vaccine (2nd) due Goal Prevnar 20. Due on 24 due Goal Vitamin D, 25-Hydroxy. Due o n due Goal Tdap. Due on due Goal Colonoscopy. Due on 023 due Goal Dermatology - Sk in Screening. Due on due Goal Hep B Vaccine (1st) due Goal Smoking status. Due on due Goal DEXA Bone Densit y Study. Due on due Goal Hep B Vaccine (2nd) due Goal Hep A Vaccine (2nd) due Goal Hep A Vaccine (1st) due Goal Influenza. Due on 4 due Referral Ordered: follow-up visit with Xavier [...] WITH Contrast Appointment date/timeframe: 04/25/2019 ordered Appointment Tiffanie Tello BOOKED Appointment Tiffanie Tello BOOKED Appointment Omer Moreno BOOKED Appointment Omer Moreno BOOKED Appointment Tiffanie Tello BOOKED Future Order: Lab Order BUN ([id number]), Body Site: Right Antecubital Fossa, Collected on: , Sent on: Sent Future Order: Lab Order Creatini ne ([id number]), Collected on: , Sent on: Sent Future Order: Lab Order CBC W/di ff, Whole Blood ([id number]), Collected on: , Sent on: Sent Future Order: Lab Order Hepatic Function Panel ([id number]), Collected on: , Sent on: Sent History Of Present Illness Encounter Date Complaint History Of Prese nt Illness GI Symptoms or Concerns Patient is a 44-year-old male who had an in-person visit today for 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 I last saw him in March 2023. He was seen by Maryellen Anderson in February 2024. He was initially on balsalazide and Canasa but continued to have GI symptoms so was eventually started on Remicade in June 2021. He is also on balsalazide 5 pills in the morning and 4 pills in the evening. His last colonoscopy was in January of 2022 and 1 transverse colon tubular adenoma was removed. Colon appeared otherwise normal with normal colon biopsies. His Remicade was increased to every 6 weeks because he was having some GI symptoms for 2 weeks before his Remicade infusion was due. He was seen by data specialist in 2022 and they recommended that we increase Remicade to 5 mg/kg IV every 4 weeks for his joint inflammation so this was done. Patient is also on balsalazide 5 pills in the morning and 4 pills in the evening.I reviewed his labs from November 2024 including a CBC and LFTs that were normal. His QuantiFERON was negative in 2022. His BUN and creatinine were normal in June 2024.Patient reports that he had a cardiac arrhythmia and had a pacemaker placed recently. He also reports has been dealing with a lot of anxiety and depression and is also currently getting . He reports that his bowel movements range from 0 to 5-6 a day. He can sometimes go for several days without a bowel movement. His stools are usually soft but sometimes they are watery. He reports occasional abdominal cramping and occasional urgency. He denies recent significant rectal bleeding. GI Symptoms or Concerns This is a very pleasant 43-year-old male I am seeing today in followup by a virtual visit. He has a history of ulcerative proctitis diagnosed in 2018. Initially, he was on balsalazide and Canasa, [...] Remicade infusion. He was referred to a data specialist for further evaluation of his joint pain [...] significantly decreased. 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 The steel erecting pusher said no further evaluation or treatment was [...] mutation. I had referred him to a steel erecting pusher, but he has not yet seen them. He did see his acute dialysis registered nurse for intermittent chest pain and palpitat GI [...] polyps at a young age or the acute dialysis registered nurse for his intermittent chest pain or the steel erecting pusher for his elevated transferrin saturation and C282Y [...] steroid suppositories for 1 week followed by Canasa. He was also to continue on balsalazide. [...] Information Instructions Date Instruction Additional Infor abelino -CBC, LFTs, vitamin D level, BUN, creatinine, QuantiFERON, TSH, celiac labs-Stool infectious studies-Flexible sigmoidoscopy with biopsies to reassess ulcerative colitis disease activity-Continue remicade 5 mg/kg IV every 4 weeks-Continue balsalazide 5 tabs in am, 4 tabs in pm-Protocol labs while on the above-Calcium citrate and vitamin D-Avoid NSAIDs-Patient has declined flu shot and COVID-19 vaccinations-Repeat colonoscopy in 01/2027 due to personal history of colon jteqyj-Kfvvth-jp with IBD ANASTASIA in 1 month, after above testing completed Related to Ulcerative (chronic) proctitis without complications Continue Remicade 5 mg/kg every 4 weeks.Continue balsalazide 9 per day.Laboratories per protocol.See Dermatology annually for skin checks.Follow up in 1 year.Colonoscopy will be due in 2026. Related to Ulcerative (chronic) proctitis without complications Infliximab IV per celerated protocol - Patient has appoin tment to see a data specialist in June for further evaluation of his joint pains 1 week before Remicade is due. If he has a recurrence of significant joint pains again before he sees the data specialist then he will try to see his primary care provider that same day or be seen in urgent care to have his joints examined and for possible additional blood work and imaging and management. Related to Multiple joint pain -Repeat colonoscopy in 01/2027 Re lated to Personal history of colonic polyps -Continue remicade 5 mg/kg IV every 6 weeks-Continue balsalazide 5 tabs in am, 4 tabs in pm-Protocol labs while on the above-Calcium citrate and vitamin D-Avoid NSAIDs-Patient has declined flu shot and COVID-19 sifldzscasga-Ryvbvh-bn in 6 months Related to Ulcerative (chronic) proctitis without complications Infliximab IV per celerated protocol -Repeat colonoscopy in 01/2027 Re lated to Personal history of colonic polyps -Continue remicade 5 mg/kg IV every 6 weeks-Continue balsalazide 5 tabs in am, 4 tabs in pm-Calcium citrate and vitamin D-Avoid NSAIDs-Patient declined flu shot and COVID-19 psdwmtpnurtk-Jrbxtz-bt in 6 months Related to Ulcerative (chronic) [...] for approval for every 6 week remicade fruupw-Bvgidp-yi in 4 months Related to Ulcerative (chronic) [...] tabs in pm-Calcium citrate and vitamin D-Avoid ZUBOVw-Ksqmws-ol in 3 months Related to Ulcerative (chronic) [...] let us know-Calcium citrate and vitamin D-Avoid UAZUXi-Vrxznt-kh in 6 months Related to Ulcerative (chronic) proctitis with rectal bleeding -Medical genetics ev aluation due to two colon adenomas at age 38-Repeat colonoscopy in 02/2022, if not done sooner Related to Personal history of colonic polyps -Patient has appoint ment with steel erecting pusher in near future for further evaluation of elevated transferrin saturation level and 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 -Continue balsalazid e 5 tabs in am, 4 tabs in pm-Continue cansasa suppositories as needed-Calcium citrate and vitamin D-Avoid NSAIDs-Patient will schedule appointment with his acute dialysis registered nurse soon for further evaluation and treatment of intermittent chest pain and palpitations - patient will proceed to urgency room or ER if he develops severe symptoms-Levsin as needed for abdominal pain and diarrhea-Miralax as needed for fouzpmehjmah-Dkxdxa-zp in 6 months Related to Ulcerative proctitis [...] abdominal pain -Patient has appoint ment with steel erecting pusher soon for further evaluation of elevated transferrin saturation level and 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 -Patient has appoint ment with his acute dialysis registered nurse soon for further evaluation and treatment of [...] that controls symptoms-Calcium citrate and vitamin D-Avoid UZASWd-Idqvqp-kt in 3 months Related to Ulcerative proctitis without complication -Patient will call h is acute dialysis registered nurse today for further evaluation and treatment of [...] and vitamin D-Avoid NSAIDs-Pneumovax vaccine -Twinrix #2 mybte-Vqrkpy-ya in 1 month Related to Ulcerative proctitis with rectal bleeding -Medical genetics ev aluation due to two colon adenomas at age 38-Repeat colonoscopy in 3 years, if not done sooner Related to Personal history of colonic polyps -Stool infectious pa jose-Continue balsalazide 5 tabs in am, 4 tabs in pm-Start steroid suppositories (anusol) twice daily for 1 week followed by cansasa suppositories nightly for 1 month-If patient has persistent GI symptoms despite the above, then would consider flex sig with biopsies for further evaluation-Calcium citrate and vitamin D-Avoid NSAIDs-Pneumovax vaccine after at 06/11/19-Flu shot, start twinrix lliya-Cvtvup-wp in 2 months Related to Ulcerative proctitis without complication -Medical genetics ev aluation due to two colon adenomas at age 38-Repeat colonoscopy in 3 years, if not done sooner Related to Personal history of colonic polyps -Labs as ordered-[facility] infectious studies-CT enterography to check for [...] after at least 8 weeks-Flu shot in zmde-Ibgqqm-zm in 1 month Related to Ulcerative proctitis with rectal bleeding Assessments Type Assessment Date No Information Patient Care Teams Name Effective Dates (start - stop) Status Members No Information
--- OUTSIDE RECORDS SUMMARY | 2025-05-23 11:41 | XMS_ITS | Continuity of Care Document ---
Author Organization [facility] Address [address] [address] [place] [address] Phone Care Team Providers Care Time Checker Name Role Phone Jet Cox MD, Damián [...] Serum Collection Immuniz Admin; 1/combo Vacc/to [id number]; Hg/pltlt Ct Auto/compl 19 [...] Diagnoses Date Provider Providers Copied on Encounter [facility], [address] [address], [place], [id number], [place] tel:[phone] [facility] No Information May-0 5 Jet Steel. [address] [facility], [facility] [address], [place], [address], [place]. tel:[phone] Offic/outpt E&m Estab Moderate [facility], [address] [address], [place], [id number], [place] tel:[phone] [facility] GI Symptoms or Concerns (chief complaint) Ulcerative (chronic) proctitis without complicationsLow er abdominal painDiarrhea, unspecifiedRecta l urgency Sep-3 0 5 Vincent Park. [address] [facility], [address], [id number], [place]. tel:[phone] Referring Provider: Referral Self, USE FOR SELF REFERRALS. [facility], [address] [address], [place], [id number], [place] tel:[phone] [facility] [place] Ulcerative (chronic) proctitis without complicationsUlc erative (chronic) proctitis with rectal bleeding Sep-2 5 Vincent Park. [address] [facility], [facility] [address], [place], [address], [place]. tel:[phone] Referring Provider: Referral Self, USE FOR SELF REFERRALS. [facility], [address] [address], [place], [id number], [place] tel:[phone] [facility] [place] Ulcerative (chronic) proctitis without complications Sep-0 5 Darell Soliz. [address] [facility], [facility] [address], [place], [address], [place]. tel:[phone] Referring Provider: Referral Self, USE FOR SELF REFERRALS. [facility], [address] [address], [place], [address], [place] tel:[phone] [facility] Ulcerative (chronic) proctitis without complications 5 Vincent Park. [address] [facility], [facility] [address], [place], [place], [address], [place]. tel:[phone] [facility], [address] [address], [place], [address], [place] tel:[phone] [facility] [place] Ulcerative (chronic) proctitis without complications 5 Dusty Hood. [address] [place] [address], [address], [id number], [place]. tel:[phone] Referring Provider: Referral Self, USE FOR SELF REFERRALS. [facility], [address] [address], [place], [address], [place] tel:[phone] [facility] Ulcerative (chronic) proctitis without complications 5 Justin Bojorquez. [address] [facility], [facility] [address], [place], [address], [place]. tel:[phone] [facility], [address] [address], [place], [address], [place] tel:[phone] [facility] [place] Ulcerative (chronic) proctitis without complications 5 Luis Fernando Vieyra. [address] [facility], [facility] [address], [place], [address], [place]. tel:[phone] Referring Provider: Referral Self, USE FOR SELF REFERRALS. [facility], [address] [address], [place], [address], [place] tel:[phone] [facility] [place] Ulcerative (chronic) proctitis without complications 5 Justin Bojorquez. [address] [facility], [facility] [address], [place], [address], [place]. tel:[phone] [facility], [address] [address], [place], [address], [place] tel:[phone] [facility] [place] Ulcerative (chronic) proctitis without complications Qasim-0 5 Dusty Hood. [address] [place] [address], [id number], [place]. tel:[phone] Referring Provider: Referral Self, USE FOR SELF REFERRALS. [facility], [address] [address], [place], [address], [place] tel:[phone] [facility] [place] Ulcerative (chronic) proctitis without complications December-2 2 5 Justin Bojorquez. [address] [place] [address], [id number], [place]. tel:[phone] [facility], [address] [address], [place], [address], [place] tel:[phone] [facility] [place] Ulcerative (chronic) proctitis without complications December-0 5 Chun Hampton. [address] [place] [address], [id number], [place]. tel:[phone] Referring Provider: Referral Self, USE FOR SELF REFERRALS. [facility], [address] [address], [place], [address], [place] tel:[phone] [facility] [place] Ulcerative (chronic) proctitis without complications Nov-2 5 Justin Bojorquez. [address] [place] [address], [id number], [place]. tel:[phone] [facility], [address] [address], [place], [address], [place] tel:[phone] [facility] Ulcerative (chronic) proctitis without complications Apr-0 5 Luis Fernando Vieyra. [address] [place] [address], [id number], [place]. tel:[phone] Referring Provider: Referral Self, USE FOR SELF REFERRALS. [facility], [address] [address], [place], [address], [place] tel:[phone] [facility] Ulcerative (chronic) proctitis with rectal bleeding Apr-0 4- 5 Vincent Park. [address] [facility], [facility] [address], [place], [place], [address], [place]. tel:[phone] Referring Provider: Referral Self, USE FOR SELF REFERRALS. [facility], [address] [address], [place], [address], [place] tel:[phone] [facility] Ulcerative (chronic) proctitis with rectal bleeding Apr-0 2-202 5 Vincent Park. [address] [facility], [facility] [address], [place], [place], [address], [place]. tel:[phone] Referring Provider: [place], [address] [place] [address] [address], [place], [address] . tel:[phone] [facility], [address] [address], [place], [address], [place] tel:[phone] [facility] [place] Ulcerative (chronic) proctitis without complications Oct-2 5 Justin Bojorquez. [address] [facility], [facility] [address], [place], [place], [address], [place]. tel:[phone] [facility], [address] [address], [place], [address], [place] tel:[phone] [facility] [place] Ulcerative (chronic) proctitis without complications Oct-0 5 Dusty Hood. [address] [facility], [facility] [address], [place], [place], [address], [place]. tel:[phone] Referring Provider: Referral Self, USE FOR SELF REFERRALS. [facility], [address] [address], [place], [address], [place] tel:[phone] [facility] [place] Ulcerative (chronic) proctitis without complications 5 Justin Bojorquez. [address] [facility], [facility] [address], [place], [place], [address], [place]. tel:[phone] [facility], [address] [address], [place], [address], [place] tel:[phone] [facility] [place] Ulcerative (chronic) proctitis without complications 5 Blake Nesbitt. [address], [id number], [place]. tel:[phone] Referring Provider: Referral Self, USE FOR SELF REFERRALS. [facility], [address] [address], [place], [address], [place] tel:[phone] [facility] [place] Ulcerative (chronic) proctitis without complications 5 Justin Bojorquez. [address], [id number], [place]. tel:[phone] [facility], [address] [address], [place], [address], [place] tel:[phone] [facility] [place] Ulcerative (chronic) proctitis without complications 4 Justin Bojorquez. [address], [id number], [place]. tel:[phone] [facility], [address] [address], [place], [address], [place] tel:[phone] [facility] [place] Ulcerative (chronic) proctitis without complications 4 Diann Alvarez. [address], [id number], [place]. tel:[phone] Referring Provider: Referral Self, USE FOR SELF REFERRALS. [facility], [address] [address], [place], [address], [place] tel:[phone] [facility] [place] Ulcerative (chronic) proctitis without complications 4 Justin Bojorquez. [address], [id number], [place]. tel:[phone] [facility], [address] [address], [place], [address], [place] tel:[phone] [facility] [place] Ulcerative (chronic) proctitis without complications 4 Dusty Hood. [address] [facility], [facility] [address], [place], [address], [place]. tel:[phone] Referring Provider: Referral Self, USE FOR SELF REFERRALS. [facility], [address] [address], [place], [address], [place] tel:[phone] [facility] Ulcerative (chronic) proctitis without complicationsUlc erative (chronic) proctitis with rectal bleeding Jun-0 4 Vincent Park. [address] [facility], [facility] [address], [place], [address], [place]. tel:[phone] Referring Provider: Referral Self, USE FOR SELF REFERRALS. [facility], [address] [address], [place], [address], [place] tel:[phone] [facility] [place] Ulcerative (chronic) proctitis without complications May-2 4 Justin Bojorquez. [address] [place] [address], [id number], [place]. tel:[phone] [facility], [address] [address], [place], [address], [place] tel:[phone] [facility] [place] Ulcerative (chronic) proctitis without complications May-0 4 Luis Fernando Vieyra. [address] [place] [address], [address], [id number], [place]. tel:[phone] Referring Provider: Referral Self, USE FOR SELF REFERRALS. [facility], [address] [address], [place], [address], [place] tel:[phone] [facility] [place] Ulcerative (chronic) proctitis without complications Sep- 4 Justin Bojorquez. [address] [place] [address], [id number], [place]. tel:[phone] [facility], [address] [address], [place], [address], [place] tel:[phone] [facility] [place] Ulcerative (chronic) proctitis without complications Sep-0 4 Blake Nesbitt. [address] [facility], [address], [id number], [place]. tel:[phone] Referring Provider: Referral Self, USE FOR SELF REFERRALS. [facility], [address] [address], [place], [address], [place] tel:[phone] [facility] [place] Ulcerative (chronic) proctitis without complications 4 Justin Bojorquez. [address] [place] [address], [id number], [place]. tel:[phone] [facility], [address] [address], [place], [address], [place] tel:[phone] [facility] [place] Ulcerative (chronic) proctitis without complications 4 Diann Carlsonahim. [address] [place] [address], [id number], [place]. tel:[phone] Referring Provider: Referral Self, USE FOR SELF REFERRALS. [facility], [address] [address], [place], [address], [place] tel:[phone] [facility] [place] Ulcerative (chronic) proctitis without complications 4 Justin Bojorquez. [address] [place] [address], [id number], [place]. tel:[phone] Established Level 3 [facility], [address] [address], [place], [address], [place] tel:[phone] [facility] GI Symptoms or Concerns (chief complaint) Ulcerative (chronic) proctitis without complications 4 Justin Bojorquez. [address] [place] [address], [id number], [place]. tel:[phone] Referring Provider: Referral Self, USE FOR SELF REFERRALS. [facility], [address] [address], [place], [address], [place] tel:[phone] [facility] [place] Ulcerative (chronic) proctitis without complications 4 Dusty Hood. [address] [place] [address] [address], [place], [address], [place]. tel:[phone] Referring Provider: Referral Self, USE FOR SELF REFERRALS. [facility], [address] [address], [place], [address], [place] tel:[phone] [facility] [place] Ulcerative (chronic) proctitis without complications 4 Vincent Park. [address] [facility], [facility] [address], [place], [address], [place]. tel:[phone] [facility], [address] [address], [place], [address], [place] tel:[phone] [facility] [place] Ulcerative (chronic) proctitis without complications 4 Blake Nesbitt. [address] [facility], [address], [id number], [place]. tel:[phone] Referring Provider: Referral Self, USE FOR SELF REFERRALS. [facility], [address] [address], [place], [address], [place] tel:[phone] [facility] [place] Ulcerative (chronic) proctitis without complicationsUlc erative (chronic) proctitis with rectal bleeding 4 Vincent Park. [address] [facility], [facility] [address], [place], [address], [place]. tel:[phone] [facility], [address] [address], [place], [address], [place] tel:[phone] [facility] [place] Ulcerative (chronic) proctitis without complications 4 Luis Fernando Vieyra. [address] [facility], [facility] [address], [place], [address], [place]. tel:[phone] Referring Provider: Referral Self, USE FOR SELF REFERRALS. [facility], [address] [address], [place], [address], [place] tel:[phone] [facility] Ulcerative (chronic) proctitis with rectal bleeding Nov- 4 Vincent Park. [address] [facility], [facility] [address], [place], [address], [place]. tel:[phone] [facility], [address] [address], [place], [address], [place] tel:[phone] [facility] [place] Ulcerative (chronic) proctitis without complications Apr-2 3-202 4 Vincent Park. [address] [facility], [facility] [address], [place], [address], [place]. tel:[phone] [facility], [address] [address], [place], [address], [place] tel:[phone] [facility] [place] Ulcerative (chronic) proctitis without complications Apr-0 - 4 Amador Mcmahon. [address] [facility], [address], [id number], [place]. tel:[phone] Referring Provider: Referral Self, USE FOR SELF REFERRALS. [facility], [address] [address], [place], [address], [place] tel:[phone] [facility] [place] Ulcerative (chronic) proctitis with rectal bleeding Oct-2 2- 4 Vincent Park. [address] [facility], [facility] [address], [place], [address], [place]. tel:[phone] [facility], [address] [address], [place], [address], [place] tel:[phone] [facility] [place] Ulcerative (chronic) proctitis with rectal bleedingUlcerati ve (chronic) proctitis without complications Mar-0 - 4 Blake Nesbitt. [address] [facility], [facility] [address], [place], [address], [place]. tel:[phone] Referring Provider: Referral Self, USE FOR SELF REFERRALS. [facility], [address] [address], [place], [address], [place] tel:[phone] [facility] Ulcerative (chronic) proctitis with rectal bleeding Mar-0 - 4 Vincent Park. [address] [place] [address], [facility] [address], [place], [address], [place]. tel:[phone] Referring Provider: Referral Self, USE FOR SELF REFERRALS. [facility], [address] [address], [place], [address], [place] tel:[phone] [facility] Ulcerative (chronic) proctitis with rectal bleeding 4 Vincent Park. [address] [facility], [facility] [address], [place], [place], [address], [place]. tel:[phone] [facility], [address] [address], [place], [address], [place] tel:[phone] [facility] [place] Ulcerative (chronic) proctitis without complications 4 Vincent Park. [address] [facility], [facility] [address], [place], [address], [place]. tel:[phone] [facility], [address] [address], [place], [address], [place] tel:[phone] [facility] [place] Ulcerative (chronic) proctitis without complications 4 Chun Hampton. [address] [facility], [facility] [address], [place], [address], [place]. tel:[phone] Referring Provider: Referral Self, USE FOR SELF REFERRALS. [facility], [address] [address], [place], [address], [place] tel:[phone] [facility] [place] Ulcerative (chronic) proctitis without complications 4 Vincent Park. [address] [facility], [facility] [address], [place], [place], [address], [place]. tel:[phone] [facility], [address] [address], [place], [address], [place] tel:[phone] [facility] [place] Ulcerative (chronic) proctitis without complications 4 Kenton Gonzalez. [address] [facility], [facility] [address], [place], [address], [place]. tel:[phone] Referring Provider: Referral Self, USE FOR SELF REFERRALS. [facility], [address] [address], [place], [address], [place] tel:[phone] [facility] Ulcerative (chronic) proctitis without complications 3 Vincent Park. [address] [place] [address], [id number], [place]. tel:[phone] [facility], [address] [address], [place], [address], [place] tel:[phone] [facility] [place] Ulcerative (chronic) proctitis without complications 3 Dusty Hood. [address] [place] [address], [id number], [place]. tel:[phone] Referring Provider: Referral Self, USE FOR SELF REFERRALS. [facility], [address] [address], [place], [address], [place] tel:[phone] [facility] Ulcerative (chronic) proctitis without complications 3 Vincent Park. [address] [place] [address], [id number], [place]. tel:[phone] [facility], [address] [address], [place], [address], [place] tel:[phone] [facility] Ulcerative (chronic) proctitis without complications 3 Vincent Park. [address] [place] [address], [id number], [place]. tel:[phone] [facility], [address] [address], [place], [address], [place] tel:[phone] [facility] Ulcerative (chronic) proctitis without complications 3 Diann Quinnim. [address] [place] [address], [id number], [place]. tel:[phone] Referring Provider: Referral Self, USE FOR SELF REFERRALS. [facility], [address] [address], [place], [address], [place] tel:[phone] [facility] Ulcerative (chronic) proctitis without complications 3 Vincent Park. [address] [place] [address], [id number], [place]. tel:[phone] [facility], [address] [address], [place], [address], [place] tel:[phone] [facility] [place] Ulcerative (chronic) proctitis without complications Apr-0 3 Blake Nesbitt. [address] [place] [address], [id number], [place]. tel:[phone] Referring Provider: Referral Self, USE FOR SELF REFERRALS. [facility], [address] [address], [place], [address], [place] tel:[phone] [facility] Ulcerative (chronic) proctitis with rectal bleeding Apr-0 3 Vincent Park. [address] [place] [address], [id number], [place]. tel:[phone] Referring Provider: Referral Self, USE FOR SELF REFERRALS. [facility], [address] [address], [place], [address], [place] tel:[phone] [facility] Ulcerative (chronic) proctitis without complications 3 Vincent Park. [address] [place] [address], [id number], [place]. tel:[phone] Offic/outpt E&m Estab Mod-hi 2 [facility], [address] [address], [place], [address], [place] tel:[phone] [facility] GI Symptoms or Concerns (chief complaint) Ulcerative (chronic) proctitis without complicationsMul tiple joint painPersonal history of colonic polyps 3 Vincent Park. [address] [place] [address], [id number], [place]. tel:[phone] Referring Provider: Referral Self, USE FOR SELF REFERRALS. [facility], [address] [address], [place], [address], [place] tel:[phone] [facility] [place] Ulcerative (chronic) proctitis without complications 3 Malick Camacho. [address] [place] [address], [id number], [place]. tel:[phone] Referring Provider: Referral Self, USE FOR SELF REFERRALS. [facility], [address] [address], [place], [address], [place] tel:[phone] [facility] Ulcerative (chronic) proctitis without complications 3 Vincent Park. [address] [place] [address], [id number], [place]. tel:[phone] [facility], [address] [address], [place], [address], [place] tel:[phone] [facility] Ulcerative (chronic) proctitis without complications 3 Chandlerjuventino URIBE Juliette. [address] [place] [address], [id number], [place]. tel:[phone] [facility], [address] [address], [place], [address], [place] tel:[phone] [facility] [place] Ulcerative (chronic) proctitis without complications 3 Tevin Russell. [address] [place] [address], [id number], [place]. tel:[phone] Referring Provider: Referral Self, USE FOR SELF REFERRALS. [facility], [address] [address], [place], [address], [place] tel:[phone] [facility] Arthralgia, unspecified joint 3 Vincent Park. [address] [place] [address], [id number], [place]. tel:[phone] Referring Provider: Referral Self, USE FOR SELF REFERRALS. [facility], [address] [address], [place], [address], [place] tel:[phone] [facility] [place] Ulcerative (chronic) proctitis without complications 3 Vincent Park. [address], [id number], [place]. tel:[phone] [facility], [address] [address], [place], [address], [place] tel:[phone] [facility] [place] Ulcerative (chronic) proctitis without complications 3 Kenton Gonzalez. [address], [id number], [place]. tel:[phone] Referring Provider: Referral Self, USE FOR SELF REFERRALS. [facility], [address] [address], [place], [address], [place] tel:[phone] [facility] Ulcerative (chronic) proctitis without complications 3 Vincent Park. [address] [place] [address], [id number], [place]. tel:[phone] [facility], [address] [address], [place], [address], [place] tel:[phone] [facility] Ulcerative (chronic) proctitis without complications 3 Chun Hampton. [address] [place] [address], [id number], [place]. tel:[phone] Referring Provider: Referral Self, USE FOR SELF REFERRALS. [facility], [address] [address], [place], [address], [place] tel:[phone] [facility] Ulcerative (chronic) proctitis with rectal bleeding 3 Vincent Park. [address] [place] [address], [id number], [place]. tel:[phone] Referring Provider: Referral Self, USE FOR SELF REFERRALS. [facility], [address] [address], [place], [address], [place] tel:[phone] [facility] Ulcerative (chronic) proctitis without complications Oct- 3 Vincent Park. [address] [place], [place] [address], [place], [address], [place]. tel:[phone] [facility], [address] [address], [place], [address], [place] tel:[phone] [facility] Ulcerative (chronic) proctitis without complications 3 Chey Foster. [address] [facility], [facility] [address], [place], [address], [place]. tel:[phone] Referring Provider: Referral Self, USE FOR SELF REFERRALS. [facility], [address] [address], [place], [address], [place] tel:[phone] [facility] Ulcerative (chronic) proctitis without complications 3 [place]. [facility], [address], [id number], [place]. tel:[phone] [facility], [address] [address], [place], [address], [place] tel:[phone] [facility] Ulcerative (chronic) proctitis without complications 3 Gilbert Tello. [address] [place] [address], [id number], [place]. tel:[phone] Referring Provider: Referral Self, USE FOR SELF REFERRALS. [facility], [address] [address], [place], [address], [place] tel:[phone] [facility] Ulcerative (chronic) proctitis without complications 2 [place]. [address] [facility], [facility] [address], [place], [address], [place]. tel:[phone] [facility], [address] [address], [place], [address], [place] tel:[phone] [facility] Ulcerative (chronic) proctitis without complications 2 Malick Camacho. [address] [place] [address], [facility] [address], [place], [address], [place]. tel:[phone] Referring Provider: Referral Self, USE FOR SELF REFERRALS. [facility], [address] [address], [place], [id number], [place] tel:[phone] [facility] Ulcerative (chronic) proctitis without complications 2 [place]. [address] [facility], [place] [address], [place], [place], [address], [place]. tel:[phone] Offic/outpt E&m Estab Low-mod [facility], [address] [address], [place], [id number], [place] tel:[phone] [facility] GI Symptoms or Concerns (chief complaint) Ulcerative (chronic) proctitis without complicationsPer chacorta history of colonic polyps 2 [place]. [address] [facility], [address], [id number], [place]. tel:[phone] Referring Provider: Referral Self, USE FOR SELF REFERRALS. [facility], [address] [address], [place], [address], [place] tel:[phone] [facility] Ulcerative (chronic) proctitis without complications 2 Diann Alvarez. [address] [facility], [facility] [address], [place], [address], [place]. tel:[phone] Referring Provider: Referral Self, USE FOR SELF REFERRALS. [facility], [address] [address], [place], [address], [place] tel:[phone] [facility] Ulcerative (chronic) proctitis with rectal bleeding 2 [place]. [address] [facility], [facility] [address], [place], [address], [place]. tel:[phone] Referring Provider: Referral Self, USE FOR SELF REFERRALS. [facility], [address] [address], [place], [address], [place] tel:[phone] [facility] Ulcerative (chronic) proctitis without complications 2 Tevin Russell. [address], [id number], [place]. tel:[phone] Referring Provider: Referral Self, USE FOR SELF REFERRALS. [facility], [address] [address], [place], [id number], [place] tel:[phone] [facility] Ulcerative (chronic) proctitis without complications 2 Diann Alvarez. [address], [id number], [place]. tel:[phone] Referring Provider: Referral Self, USE FOR SELF REFERRALS. Offic/outpt E&m Estab Mod-hi 2 [facility], [address] [address], [place], [id number], [place] tel:[phone] [facility] GI Symptoms or Concerns (chief complaint) Ulcerative (chronic) proctitis without complicationsRec jung urgencyFrequent bowel movementsPersona l history of colonic polyps 2 Vincent Park. [address] [place] [address], [id number], [place]. tel:[phone] Referring Provider: Referral Self, USE FOR SELF REFERRALS. [facility], [address] [address], [facility] [place], [address], [place] tel:[phone] [facility] GI Symptoms or Concerns (chief complaint) Colorectal polyp detected on colonoscopyPerso nal history of colonic polypsUlcerative proctitis without complicationBeni gn neoplasm of transverse colonUlcerative (chronic) proctitis without complicationsBen ign neoplasm of transverse colonPersonal history of colonic polyps 2 Vincent Park. [address] [place] [address], [id number], [place]. tel:[phone] Referring Provider: Ben Mendoza, [address] [place] [address], [address]. tel:[phone] [facility], [address] [address], [place], [address], [place] tel:[phone] [facility] Diarrhea, unspecified 2 Vincent Park. [address] [place] [address] [place], [facility] [address], [place], [address], [place]. tel:[phone] [facility], [address] [address], [place], [address], [place] tel:[phone] [facility] Ulcerative (chronic) proctitis with rectal bleeding 2 Chey Foster. [address] [facility], [facility] [address], [place], [address], [place]. tel:[phone] Referring Provider: Referral Self, USE FOR SELF REFERRALS. [facility], [address] [address], [place], [address], [place] tel:[phone] [facility] Ulcerative (chronic) proctitis with rectal bleeding 2 Tevin Russell. [facility], [address], [id number], [place]. tel:[phone] Referring Provider: Referral Self, USE FOR SELF REFERRALS. [facility], [address] [address], [place], [address], [place] tel:[phone] [facility] Ulcerative (chronic) proctitis with rectal bleeding 2 [place]. [address] [facility], [facility] [address], [place], [address], [place]. tel:[phone] Referring Provider: Referral Self, USE FOR SELF REFERRALS. [facility], [address] [address], [place], [address], [place] tel:[phone] [facility] Ulcerative (chronic) proctitis with rectal bleeding 2 Tyrese Lyman. [address] [facility], [address], [id number], [place]. tel:[phone] Referring Provider: Referral Self, USE FOR SELF REFERRALS. Established Level 4 [facility], [address] [address], [place], [address], [place] tel:[phone] [facility] GI Symptoms or Concerns (chief complaint) Ulcerative (chronic) proctitis without complicationsPer chacorta history of colonic polyps 2 [place]. [address] [facility], [facility] 500, [place], [place], [address], [place]. tel:[phone] Referring Provider: Referral Self, USE FOR SELF REFERRALS. [facility], [address] [address], [place], [address], [place] tel:[phone] [facility] Ulcerative (chronic) proctitis with rectal bleeding 1 Chey Foster. [address] [facility], [facility] 500, [place], [place], [address], [place]. tel:[phone] Referring Provider: Referral Self, USE FOR SELF REFERRALS. [facility], [address] [address], [place], [address], [place] tel:[phone] [facility] Ulcerative (chronic) proctitis with rectal bleeding 1 Chey Foster. [address] [facility], [facility] [address], [place], [address], [place]. tel:[phone] Referring Provider: Referral Self, USE FOR SELF REFERRALS. [facility], [address] [address], [place], [address], [place] tel:[phone] [facility] Tingling 1 [place]. [address] [facility], [facility] [address], [place], [address], [place]. tel:[phone] [facility], [address] [address], [place], [address], [place] tel:[phone] [facility] Ulcerative (chronic) proctitis with rectal bleeding 1 Orquidea Kruger. [address] [facility], [facility] 500, [place], [place], [address], [place]. tel:[phone] Referring Provider: Slick Sánchez, [address] [facility] [address], [place], [address] . tel:[phone] [facility], [address] [address], [place], [address], [place] tel:[phone] [facility] Ulcerative (chronic) proctitis with rectal bleeding 1 [place]. [address] [facility], [facility] [address], [place], [address], [place]. tel:[phone] [facility], [address] [address], [place], [address], [place] tel:[phone] [facility] No Information 1 [place]. [address] [facility], [facility] [address], [place], [address], [place]. tel:[phone] [facility], [address] [address], [place], [address], [place] tel:[phone] [facility] GI Symptoms or Concerns (chief complaint) Diarrhea, unspecifiedUlcer ative (chronic) proctitis with rectal bleedingUlcerati ve (chronic) proctitis with rectal bleedingUlcerati ve (chronic) proctitis with rectal bleeding 1 [place]. [address] [facility], [address], [id number], [place]. tel:[phone] Referring Provider: Referral Self, USE FOR SELF REFERRALS. [facility], [address] [address], [place], [address], [place] tel:[phone] [facility] No Information 1 [place]. [address] [facility], [facility] [address], [place], [address], [place]. tel:[phone] [facility], [address] [address], [place], [address], [place] tel:[phone] [facility] Ulcerative (chronic) proctitis with rectal bleeding 1 [place]. [address] [facility], [facility] [address], [place], [address], [place]. tel:[phone] [facility], [address] [address], [place], [address], [place] tel:[phone] [facility] Ulcerative (chronic) proctitis without complications 1 [place]. [address] [place] [address], [address], [place]. tel:[phone] Referring Provider: Referral Self, USE FOR SELF REFERRALS. [facility], [address] [address], [place], [id number], [place] tel:[phone] [facility] Ulcerative proctitis without complication 1 [place]. [address] [place] [address], [id number], [place]. tel:[phone] [facility], [address] [address], [place], [address], [place] tel:[phone] [facility] Ulcerative proctitis without complicationUlce rative (chronic) proctitis with rectal bleeding 1 [place]. [address] [place] [address], [id number], [place]. tel:[phone] Referring Provider: Referral Self, USE FOR SELF REFERRALS. Telephone E&M I 5-10 Min ANASTASIA [facility], [address] [address], [place], [id number], [place] tel:[phone] [facility] GI Symptoms or Concerns (chief complaint) Ulcerative (chronic) proctitis with rectal bleedingPersonal history of colonic polypsHemochroma tosis carrier 1 [place]. [address] [place] [address], [id number], [place]. tel:[phone] Referring Provider: Referral Self, USE FOR SELF REFERRALS. [facility], [address] [address], [place], [id number], [place] tel:[phone] [facility] No Information 1 [place]. [address] [place] [address], [id number], [place]. tel:[phone] Virtual Visit E&m Estab Low-mod 15-25 Min [facility], [address] [address], [place], [id number], [place] tel:[phone] [facility] GI Symptoms or Concerns (chief complaint) Ulcerative proctitis without complicationPers onal history of colonic polypsHemochroma tosis carrier Nov- 0 Vincent Park. [address] [place] [address], [address], [id number], [place]. tel:[phone] Referring Provider: Ben Mendoza, [address] [place] [address], [address]. tel:[phone] Offic/outpt E&m Estab Mod-hi 2 [facility], [address] [address], [place], [address], [place] tel:[phone] [facility] GI Symptoms or Concerns (chief complaint) Ulcerative proctitis without complicationLowe r abdominal painDiarrhea, unspecifiedConst ipation, unspecified constipation typePersonal history of colonic polypsHemochroma tosis carrierChest pain, unspecified type 0 Vincent Park. [address] [place] [address], [address], [id number], [place]. tel:[phone] Referring Provider: Referral Self, USE FOR SELF REFERRALS. [facility], [address] [address], [place], [address], [place] tel:[phone] [facility] Abnormal iron saturation 0 Vincent Park. [address] [facility], [address], [address], [place]. tel:[phone] [facility], [address] [address], [place], [address], [place] tel:[phone] [facility] Diarrhea, unspecified 0 Vincent Park. [address] [place] [address], [address], [address], [place]. tel:[phone] Referring Provider: Referral Self, USE FOR SELF REFERRALS. [facility], [address] [address], [place], [address], [place] tel:[phone] [facility] Ulcerative (chronic) proctitis with rectal bleedingDiarrhea , unspecified typeUlcerative (chronic) proctitis with rectal bleeding 0 Vincent Park. [address] [facility], [facility] 500, [place], [place], [address], [place]. tel:[phone] Referring Provider: Referral Self, USE FOR SELF REFERRALS. [facility], [address] [address], [place], [address], [place] tel:[phone] [facility] Abnormal level of blood mineral 0 Vincent Park. [address] [place] [address], [facility] 500, [place], [place], [address], [place]. tel:[phone] Referring Provider: Referral Self, USE FOR SELF REFERRALS. [facility], [address] [address], [place], [address], [place] tel:[phone] [facility] No Information 9 No Information [facility], [address] [address], [place], [address], [place] tel:[phone] [facility] Abnormal iron saturation 9 Vincent Park. [address] [place] [address], [facility] 500, [place], [place], [address], [place]. tel:[phone] Offic/outpt E&m Estab Mod-hi 2 [facility], [address] [address], [place], [address], [place] tel:[phone] [facility] GI Symptoms or Concerns (chief complaint) Ulcerative proctitis with rectal bleedingLower abdominal painRectal urgencyPersonal history of colonic polypsChest pain, unspecified typePalpitations 9 Vincent Park. [address] [place] [address], [facility] 500, [place], [place], [address], [place]. [phone] Referring Provider: Xavier Kaur MD, [address] [place] [address] 500, [place], [address] . tel:[phone] [facility], [address] [address], [place], [address], [place] tel:[phone] [facility] No Information 9 Vincent Park. [address] [facility], [facility] [address], [place], [address], [place]. tel:[phone] Offic/outpt E&m Estab Mod-hi 2 [facility], [address] [address], [place], [address], [place] tel:[phone] [facility] GI Symptoms or Concerns (chief complaint) Ulcerative proctitis without complicationLoos e stoolsPersonal history of colonic polypsRectal urgency 9 Vincent Park. [address] [facility], [address], [id number], [place]. tel:[phone] Referring Provider: Referral Self, USE FOR SELF REFERRALS. [facility], [address] [address], [place], [id number], [place] tel:[phone] [facility] Diarrhea, unspecified type 9 Vincent Park. [address] [facility], [address], [id number], [place]. tel:[phone] [facility], [address] [address], [place], [address], [place] tel:[phone] [facility] No Information 9 Vincent Park. [address] [facility], [facility] [address], [place], [address], [place]. tel:[phone] [facility], [address] [address], [place], [address], [place] tel:[phone] [facility] Other fecal abnormalities 9 Vincent Park. [address] [facility], [address], [address], [place]. tel:[phone] Referring Provider: Callie Seals MD, [address] [place], [address]. tel:[phone] Offic/outpt E&m New Mod-hi [facility], [address] [address], [place], [place], [address], [place] tel:[phone] [facility] GI Symptoms or Concerns (chief complaint) Ulcerative proctitis with rectal bleedingLoose stoolsLower abdominal painRectal urgencyPersonal history of colonic polypsFever, unspecified fever cause 0201 9 Vincent [facility]. [address] [facility], [facility] [address], [place], [address], [place]. tel:[phone] Referring Provider: Callie Seals MD, [address] [place], [address]. tel:[phone] Family History Family Member Type Diagnosis Age [...] New Immunization Record Prevnar 13 administered Note: [employer] bi-d irectional interface ; Source: Other Registry Pneumococcal conjugate PCV 13 administere d Source: New Immunization Record tetanus toxoid, reduced diphtheria toxoid, and acellular pertussis vaccine, adsorbed administered Note: [employer] bi-direct ional interface ; Source: Other Registry Payers Payer name Insurance type Covered republican ID Authoriza tion(s) [employer] [place] [id number] [employer] [place] BL [id number] [employer] CI [id number] [employer] CI [id number] [employer] CI [id number] [employer] CI [id number] [employer] CI [id number] Social History Type Description Quantity Date Captured Comments Alcohol Use Details Unknown Caffeine Use Details Unknown Tobacco Use Status No Information Smoking Status No Information Sex Male Chief Complaint And Reason For Visit No Information Reason For Referral Reason For Referral No Information Plan Of Treatment Date Type Action Status Goal DEXA Bone Densit y Study. Due on due Goal Dermatology - Sk in Screening. Due on due Goal Hep B Vaccine (2nd) due Goal Prevnar 20. Due on 25 due Goal Tdap. Due on due Goal [...] Goal Prevnar 20. Due on due Goal DEXA Bone Densit [...] Goal Colonoscopy. Due on due Goal Hep B Vaccine [...] Goal Colonoscopy. Due on due Goal Hep B Vaccine (2nd) due Goal Dermatology - Sk in Screening. Due on due Goal Colonoscopy. Due on due Goal Hep A Vaccine (2nd) due Goal Vitamin D, 25-Hydroxy. Due o n due Goal Hep A Vaccine (1st) due Goal Dermatology - Sk in Screening. Due on due Goal Prevnar 20. Due on due Goal DEXA Bone Densit y Study. Due on due Goal Smoking status. Due on due Goal Hep B Vaccine (2nd) due Goal Hep B Vaccine (1st) due Goal Influenza. Due on due Goal Tdap. Due on due Goal Hep A Vaccine (1st) due Goal Dermatology - Sk in Screening. Due on due Goal Influenza. Due on due Goal Vitamin D, 25-Hydroxy. Due o n due Goal Tdap. Due on due Goal Prevnar 20. Due on due Goal Hep A Vaccine (2nd) due Goal Hep B Vaccine (1st) due Goal Smoking status. Due on due Goal Colonoscopy. Due on due Goal Hep B Vaccine (2nd) due Goal DEXA Bone Densit y Study. Due on due Goal DEXA Bone Densit [...] Sk in Screening. Due on due Goal Prevnar 20. Due on due Goal DEXA Bone Densit [...] Sk in Screening. Due on due Goal Vitamin D, 25-Hydroxy. [...] Vaccine (1st) due Goal Colonoscopy. Due on 023 due Goal Hep B Vaccine (1st) due Goal Prevnar 20. Due on 25 due Goal Hep B Vaccine (2nd) due Goal Hep A Vaccine (2nd) due Goal Dermatology - Sk in Screening. Due on due Goal Influenza. Due on due Goal Vitamin D, 25-Hydroxy. Due o n due Goal Smoking status. Due on due Goal DEXA Bone Densit y Study. Due on due Goal Hep A Vaccine (1st) due Goal Tdap. Due on due Goal Smoking status. Due on due Goal Prevnar 20. Due on 25 due Goal Hep A Vaccine (1st) due [...] on due Goal Prevnar 20. Due on 24 due Goal Influenza. Due on due Goal [...] Goal Colonoscopy. Due on due Goal Hep B Vaccine [...] Goal Prevnar 20. Due on due Goal DEXA Bone Densit [...] Vaccine (1st) due Goal Colonoscopy. Due on 023 due [...] Goal Hep B Vaccine (2nd) due Goal DEXA Bone Densit [...] BOOKED Future Order: Lab Order BUN ([id number]), Body Site: Right Antecubital Fossa, Collected on: , Sent on: Sent Future Order: Lab Order Creatini ne ([id number]), Collected on: , Sent on: Sent Future Order: Lab Order CBC W/di ff, Whole Blood ([id number]), Collected on: , Sent on: Sent Future Order: Lab Order Hepatic Function Panel ([id number]), Collected on: , Sent on: Sent History [...] infusion was due. He was seen by freelance translator in 2022 and they recommended that we [...] Remicade infusion. He was referred to a freelance translator for further evaluation of his joint pain [...] significantly decreased. He reports he saw a heat engineering teacher due to his history of some elevated transferrin saturation and 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 status. The heat engineering teacher said no further evaluation or treatment was [...] mutation. I had referred him to a heat engineering teacher, but he has not yet seen them. He did see his hand sander for intermittent chest pain and palpitat GI [...] polyps at a young age or the hand sander for his intermittent chest pain or the heat engineering teacher for his elevated transferrin saturation and C282Y [...] 01/2027 due to personal history of colon [id number]-[id number] with IBD ANASTASIA in 1 month, after [...] Patient has appoin tment to see a freelance translator in June for further evaluation of his joint pains 1 week before Remicade is due. If he has a recurrence of significant joint pains again before he sees the freelance translator then he will try to see his [...] NSAIDs-Patient has declined flu shot and COVID-19 nlwuytecmams-Phjech-ai in 6 months Related to Ulcerative (chronic) proctitis without complications Infliximab IV per celerated protocol -Repeat colonoscopy in 01/2027 Re lated to Personal history of colonic polyps -Continue remicade 5 mg/kg IV every 6 weeks-Continue balsalazide 5 tabs in am, 4 tabs in pm-Calcium citrate and vitamin D-Avoid NSAIDs-Patient declined flu shot and COVID-19 bglgsfltqrqg-Wabjtr-sn in 6 months Related to Ulcerative (chronic) [...] for approval for every 6 week remicade yyjgog-Mcifrs-ca in 4 months Related to Ulcerative (chronic) proctitis without complications Colon Polyps Related to Color ectal polyp detected on colonoscopy Colon Cancer Prevention Related to Colorectal polyp detected on colonoscopy -Medical genetics ev aluation due to two colon adenomas at age 38-Repeat colonoscopy in 02/2022 - ordered Related to Personal history of colonic polyps -Continue remicade 5 mg/kg IV every 8 weeks-Continue balsalazide 5 tabs in am, 4 tabs in pm-Calcium citrate and vitamin D-Avoid CIALAk-Kmewii-ab in 3 months Related to Ulcerative (chronic) [...] let us know-Calcium citrate and vitamin D-Avoid UYQGQs-Txjxug-rk in 6 months Related to Ulcerative (chronic) proctitis with rectal bleeding -Medical genetics ev aluation due to two colon adenomas at age 38-Repeat colonoscopy in 02/2022, if not done sooner Related to Personal history of colonic polyps -Patient has appoint ment with heat engineering teacher in near future for further evaluation of elevated transferrin saturation level and 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 -Continue balsalazid e 5 tabs in am, 4 tabs in pm-Continue cansasa suppositories as needed-Calcium citrate and vitamin D-Avoid NSAIDs-Patient will schedule appointment with his hand sander soon for further evaluation and treatment of intermittent chest pain and palpitations - patient will proceed to urgency room or ER if he develops severe symptoms-Levsin as needed for abdominal pain and diarrhea-Miralax as needed for wlehbmogykpg-Gfelqq-yw in 6 months Related to Ulcerative proctitis [...] abdominal pain -Patient has appoint ment with heat engineering teacher soon for further evaluation of elevated transferrin saturation level and 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 -Patient has appoint ment with his hand sander soon for further evaluation and treatment of [...] that controls symptoms-Calcium citrate and vitamin D-Avoid USGETm-Kofpde-jp in 3 months Related to Ulcerative proctitis without complication -Patient will call h is hand sander today for further evaluation and treatment of [...] and vitamin D-Avoid NSAIDs-Pneumovax vaccine -Twinrix #2 vnheg-Dqsvab-og in 1 month Related to Ulcerative proctitis [...] vaccine after at 06/11/19-Flu shot, start twinrix kcwbj-Qyizay-oe in 2 months Related to Ulcerative proctitis without complication -Medical genetics ev aluation due to two colon adenomas at age 38-Repeat colonoscopy in 3 years, if not done sooner Related to Personal history of colonic polyps -Labs as ordered-[facility] infectious studies-CT enterography to check for [...] after at least 8 weeks-Flu shot in bgop-Lgdmtc-jr in 1 month Related to Ulcerative proctitis with rectal bleeding Assessments Type Assessment Date No Information Patient Care Teams Name Effective Dates (start - stop) Status Members No Information
[2025-05-27] VITALS (30 sets, daily range): BP systolic 86–148; BP diastolic 47–87; PULSE 69–73; RESP 0–29; TEMP 36.5; O2SAT 96–100; BMI 20.9
--- OUTSIDE RECORDS SUMMARY | 2025-05-27 14:02 | XMS_ITS ---
Author Name Interface, [id number] lity Address [address] [place] [address] Oncology Address [address] [place] [address] Allergies and Adverse Reactions Plan Reason for Visit Encounters Medications Problems Vital Signs
--- OUTSIDE RECORDS SUMMARY | 2025-05-27 14:02 | XMS_ITS | CCD ---
Author Name Interface, [id number] lity Address [address] [place] [address] [facility] Address [facility] [address] [place] [address] Care Team Providers Care Metal Fitter Name Role Phone Alex Gallagher Unavailable Unavailable Allergies and Adverse Reactions Reason for Visit Medications Problems Social History
--- OUTSIDE RECORDS SUMMARY | 2025-05-27 14:03 | XMS_ITS | Data Portability ---
Author Organization [place] [facility] Address [address] [facility] [address] [place] [address] Care Team Providers Care Warehouse Coordinator Name Role Phone GUS URBINA Primary Care Provider Assessment No assessment recorded. Plan of Treatment Reminders Order Date Submit Date Provider Last Modified By Organization Details Last Modified Time Details Appointments None record ed. Lab urinal ysis, dipsti ck 2023 024 [email or web address] o [facility], [address] [place], [address], 15:09:41 Referral None record ed. Procedures None record ed. Surgeries ureter oscopy with stone basket extrac tion, nnamdi m laser fragme ntatio n (SURG) 2023 024 [email or web address] Not available 16:47:23 Imaging None record ed. Medication Orders oxycod one-ac etamin ophen 5 mg-325 mg tablet 2023 024 [id number], [address], [address], 4 15:34:31 Zofran 4 mg tablet 2023 024 [id number], [address], [address], 4 15:34:31 Patient TargetsNo targets recorded. Patient InstructionsNo instructions recorded. Reason for Referral None Reported. Results Created Date Observation Date Name Description Value Unit Range Abnormal Flag Note LastModifiedBy Organization Detail LastModifiedTime 04/26/20 24 04/26/2024 urina lysis , dipst ick BLOOD Small (10 RBC/uL ) Not Available [facility] [address], [place], [address], 04/26/2024 15:09:12 04/26/20 24 04/26/2024 urina lysis , dipst ick BILIRUBIN Small (0.5 mg/dL) Not Available [facility] [address], [place], [address], 04/26/2024 15:09:12 04/26/20 24 04/26/2024 urina lysis , dipst ick UROBILINOGEN 0.2 mg/dL (Norm) Not Available [facility] [address], [place], [address], 04/26/2024 15:09:12 04/26/20 24 04/26/2024 urina lysis , dipst ick KETONES Trace (5 mg/dL) Not Available [facility] [address], [place], [address], 04/26/2024 15:09:12 04/26/20 24 04/26/2024 urina lysis , dipst ick PROTEIN Negati ve Not Available [facility] [address], [place], [address], 04/26/2024 15:09:12 04/26/20 24 04/26/2024 urina lysis , dipst ick NITRITES Negati ve Not Available [facility] [address], [place], [address], 04/26/2024 15:09:12 04/26/20 24 04/26/2024 urina lysis , dipst ick GLUCOSE Negati ve Not Available [facility] [address], [place], [address], 04/26/2024 15:09:12 04/26/20 24 04/26/2024 urina lysis , dipst ick p.H. 6.0 Not Available [facility] [address], [place], [address], 04/26/2024 15:09:12 04/26/20 24 04/26/2024 urina lysis , dipst ick S.G. (Specific Agra) 1.020 Not Available [facility] [address], [place], [address], 04/26/2024 15:09:12 04/26/20 24 04/26/2024 urina lysis , dipst ick LEUKOCYTES Negati ve Not Available [facility] [address], [place], [address], 04/26/2024 15:09:12 Result Notes None recorded. Medical [...] active Not Available Not Available Not Available flecainide 50 mg tablet TAKE ONE [...] completed Not Available Not Available Not Available Oscimin SL 0.125 mg sublingual tablet DISSOLVE ONE TABLET UNDER TONGUE EVERY FOUR HOURS NEEDED* active Not Available Not Available No t Available Paxlovid 300 mg (150 mg x [...] Updated DateTime 04/26/2024 182.88 cm 21.8 kg/m2 78251.37 g Samuel castro [facility] 04/26/2024 15:11:36 Social History Question Answer Notes LastModified by Organizat ion Details LastModified Time Tobacco Smoking Status Never Smoker Samuel zamudio [facility] 04/26/2024 15:14:57 What Is Your Level Of Caffeine Consumption? None Information not available 04/26/2024 What Was The Date Of Your Most Recent Tobacco Screening? 04/26/2024 Information not available 04/26/2024 Sex: Unknown Functional Status Question Answer Note LastModified by Organizat ion Details LastModified Time Do you use any illicit or recreational drugs? No Information not available 04/26/2024 What is your level of alcohol consumption? None Information not available 04/26/2024 Mental Status None recorded. Family History Nothing Reported. Medical History Condition Response Kidney Stones Y Immunizations Vaccine Type Date Status Note Provider Nam e and Address Organization Details Recorded Time pneumococcal polysaccharide PPV23 9 completed Miletzi Deleon-[place] ro null, [facility] 04/26/2024 15:11:55 Tdap 5 completed Miletzi Deleon-[place] ro null, [facility] 04/26/2024 15:11:55 Pneumococcal conjugate PCV 13 9 completed Miletzi Deleon-[place] ro null, [facility] 04/26/2024 15:11:55 Hep B, adult 1 completed Miletzi Deleon-[place] ro null, [facility] 04/26/2024 15:11:55 Influenza, split virus, quadrivalent, PF 9 completed Miletzi Deleon-[place] ro null, [facility] 04/26/2024 15:11:55 Influenza, split virus, quadrivalent, PF 0 completed Miletzi Deleon-[place] ro null, [facility] 04/26/2024 15:11:55 Hep A-Hep B 9 completed Miletzi Deleon-[place] ro null, [facility] 04/26/2024 15:11:55 Hep A-Hep B 9 completed Miletzi Deleon-[place] ro null, [facility] 04/26/2024 15:11:55 Past Encounters Encounter ID Performer Location Encounter Start Date Encounter Closed Date Diagnosis/Indication Diagnosis SNOMED-CT Code Diagnosis ICD10 Code Diagnosis IMO Codes Diagnosis Note [id number] MD JOSY Becker_Catherine [address] [place] [address] 04/26/2024 14:47:39 04/27/2024 13:57:11 Kidney stone 25223571 N20.0 1. Kidney stones- CT scan (04/20/24) - Left - 5 mm stone (proximal ureter - L4) - Right - no stones- recommend - Cystoscopy , Left ureterosco py with laser lithotrips y, and possible stent placement( risks include bleeding, infection, incomplete stone removal. ureteral injury, and stent irritation - Rx - Percocet () - (#15(- Rx - Zofran- will need 24 Hr urine study in the future - to assess risk factors for stone formation Health Concerns Section Related Observation LastModified by Organization Detai ls LastModified Time None Recorded Concern Status LastModified by Organization Details LastModified Time None Recorded Advance Directives Directive None Recorded Payers Insurance Date Sequence Insurance Name Policy Number Policy Muñoz Covered Member ID Muoñz Member ID Guarantor Name 05/30/2024 2 [place] [id number] Omer Moreno [id number] Omer Moreno 05/30/2024 1 [place] [id number] Maura Moreno [id number] Oemr Moreno Notes Date Note Type Note Provider Name and Address Organization Details Recorded Time 04/26/2024 text/html 43 yo male with history of paroxysmal [...] Right - no stones Dante Dennis MD [address] [place] [address],[address], [address], [facility] 04/27/2024 15:46:13
--- OUTSIDE RECORDS SUMMARY | 2025-05-27 14:03 | XMS_ITS | Clinical Summary ---
Author Organization [facility] Address [address] [place] [address] Care Team Providers Care Manager Financial Reporting Name Role Phone Ben Koch MD Primary Care Provider Xavier Kaur MD Unavailable [phone] Savage Ma MD Unavailable [phone] Allergies No known active allergies Medications gabapentin (NEURONTIN) 100 MG capsule Take 1-3 capsules (100-300 mg) by mouth 3 times daily as needed for neuropathic pain Begin with 100mg po up three times daily, can titrate up by 100mg per dose if no response after three days of dosing up to 300mg po three times daily as needed 90 capsule Active Social History Tobacco Use Types Packs/Day Years Used Date Smoking Tobacco: Never Assessed Adolescent Education Answer Date Record ed Getting School Help Needed Not on file 05/15 Sex and Gender Information Value Date Recorded Sex Assigned at Not on file Legal Sex Male 10:01 AM CDT Gender Identity Not on file Sexual Orientation Not on file Last Filed Vital Signs Vital Sign Reading Time Taken Comments Blood Pressure 127/86 07/05/2021 1:10 PM GUEST ROOM INSPECTOR Pulse 66 07/05/2021 11:40 AM GUEST ROOM INSPECTOR Temperature 36.1 C (97 F) 07/05/2021 10:45 AM GUEST ROOM INSPECTOR Respiratory Rate 18 07/05/2021 10:45 AM GUEST ROOM INSPECTOR Oxygen Saturation 98% 07/05/2021 1:40 PM GUEST ROOM INSPECTOR Inhaled Oxygen Concentration - - Weight - - Height - - Body Mass Index - - Plan of Treatment Not on file Insurance [facility] Care Teams Manager Financial Reporting Relationship Specialty Start Date End Date Ben Koch MD [facility] [address] [place] [address] PCP - General Emergency Medicine 02/17/21 Xavier Kaur MD [facility] [id number] [facility] [place] [id number] Gastroenterology 02/17/21 Savage Ma MD [address] [address] 02/17/21
--- OUTSIDE RECORDS SUMMARY | 2025-05-27 14:03 | XMS_ITS | Clinical Summary ---
Author Organization [facility] Address [address] [place] [address] Care Team Providers Care Telemarketing Representative Name Role Phone Needs Pcp, Assignment Primary Care Provider [phone] Source Comments You are receiving this document [...] for each transition of care or referral. [employer] Allergies Active Allergy Reactions Criticality Noted Date Comments Venlafaxine Rash 07/06/2023 Medications balsalazide (COLAZAL) 750 MG capsule Take 9 [...] 07/06/2023 Ulcerative colitis 07/06/2023 Inflammatory arthritis, osteoarthritis Hydronephrosis with urinary obstruction due to ureteral [...] Assigned at Male 03/10/2023 1:06 PM CDT Legal Sex Male 7:04 AM CDT Gender Identity Male 03/10/2023 1:06 PM CDT Sexual Orientation Straight 03/10/2023 1: 06 PM CDT Last Filed Vital Signs Vital Sign Reading Time Taken Comments Blood Pressure 102/68 07/06/2023 11:05 AM DIGITAL CIRCUIT DESIGNER Pulse 71 07/06/2023 11:05 AM DIGITAL CIRCUIT DESIGNER Temperature - - Respiratory Rate - - Oxygen Saturation - - Inhaled Oxygen Concentration - - Weight 78.7 kg (173 lb 6.4 oz) 07/06/2023 11:05 AM DIGITAL CIRCUIT DESIGNER Height 182.9 cm (6') 07/06/2023 11:05 AM DIGITAL CIRCUIT DESIGNER Body Mass Index 23.52 07/06/2023 11:05 AM DIGITAL CIRCUIT DESIGNER Plan of Treatment Health Maintenance Due Date Last Done Comments HIV Screening (Preventive Services) 1997 Adult Preventive Visit 1999 HepB Vaccine (1) 2000 HPV Vaccine (1 - 3-dose SCDM series) 2008 Cholesterol 2016 COVID-19 Vaccine ( - 2023-2 5 season) 2025 Influenza Vaccine (#1) 2025 , 06/02/2019, 09/15/2008 DTaP/Tdap/Td Vaccine (2 - Tdap) 04/30/2025 04/30/2015, 08/07/2005 Zoster/Shingles Vaccine (1 o f 2) 2031 HepA Vaccine Aged Out 08/04/2019, 06/02/2019 No longer eligible based on patient's age to complete this topic Pneumococcal Vaccine Aged Out 08/04/2019, 04/11/2019 No longer eligible based on patient's age to complete this topic Hep C Screening (Preventive Services) Completed 07/06/2023 Hib Vaccine Aged Out No longer eligi ble based on patient's age to complete this topic IPV (Polio) Vaccine Aged Out No longe r eligible based on patient's age to complete this topic MCV4 Vaccine Aged Out No longer eligi ble based on patient's age to complete this topic Meningococcal B Vaccine Aged Out No l onger eligible based on patient's age to complete this topic Procedures Procedure Name Priority Date/Time Associated Diagnosis Comments HEPATITIS C ANTIBODY, WITH REFLEX (ANTI-HCV) Routine 07/06/2023 11:58 AM DIGITAL CIRCUIT DESIGNER Other ulcerative colitis without complication (HRC) High risk medication use Inflammatory arthritis from Last 3 Months or Most Recently Relevant to Health Maintenance Results * Hepatitis C Antibody, with Reflex (07/06/2023 11:58 AM DIGITAL CIRCUIT DESIGNER) Hepatitis C Antibody Negative (Non Reactive) Negative (Non Reactive) 07/06/2023 6:16 PM DIGITAL CIRCUIT DESIGNER [facility] Comment:Antibodies to HCV no t detected. Does not exclude the possiblity of exposure to HCV. Blood Venipuncture / Unknown 07/06/2023 11:58 AM DIGITAL CIRCUIT DESIGNER 07/06/2023 11:58 AM DIGITAL CIRCUIT DESIGNER Luke W Desilet DO LAB_1 Final Result [facility] [address] [place] [address], [facility] from Last 3 Months or Most Recently Relevant to Health Maintenance Insurance [facility] Care Teams Telemarketing Representative Relationship Specialty Start Date End Date Needs Pcp, Petey WICK [place], [place] [id number] PCP - General 07/06/23
--- OUTSIDE RECORDS SUMMARY | 2025-05-27 14:03 | XMS_ITS | Clinical Summary ---
Author Organization [facility] Address [address] [place] [address] Care Team Providers Care Cpa Tax Name Role Phone Ben Koch MD Primary Care Provider Allergies Active Allergy Reactions Criticality Noted Date Comments Venlafaxine Analogues 12/13/2006 intolerance dizziness 10/25 Medications sotaloL 80 mg tabletIndicatio ns:Paroxysmal atrial fibrillation (HC) Take 1 Tablet (80 mg) by mouth two times daily. 180 Tablet 2 01/27/20 25 Active sertraline (ZOLOFT) 50 mg tabletIndicatio ns:Major depressive disorder, recurrent episode, moderate (HC) Take one tablet p.o. along with 100 mg. for a total of 150 mg. every morning 30 Tablet 1 05/10/20 25 Active traZODone (DESYREL) 50 mg tabletIndicatio ns:Major depressive disorder, recurrent episode, moderate (HC) Take 1 Tablet (50 mg) by mouth at bedtime, may repeat once. 31 Tablet 1 05/09/20 25 Active clonazePAM (KLONOPIN) 1 mg tabletIndicatio ns:Anxiety state Take 1 Tablet (1 mg) by mouth once daily if needed for Anxiety. 30 Tablet 05/09/20 25 Active hydrOXYzine pamoate (VISTARIL) 50 mg capsuleIndicati ons:Anxiety state Take 1 Capsule (50 mg) by mouth every 4 hours if needed for Anxiety. 60 Capsule 1 05/09/20 25 Active acetaminophen (TYLENOL) 325 mg tablet Take 1-2 tablets by mouth every 4 hours if needed (For mild pain.). Max acetaminophen dose: 4000mg in 24 hrs. 0 03/25/20 18 2024 Discontinued (Pharmacist change per medication history (E-cancel not sent)) balsalazide (COLAZAL) 750 mg capsule Take by mouth 2 times daily. 3750 mg (5 caps) in the AM, 3000 mg (4 caps) in the PM 2024 Discontinued (Pharmacist change per medication history (E-cancel not sent)) inFLIXimab (Remicade) 100 mg injection Inject 5 mg/kg intravenous every 4 weeks. 07/12/202024 Discontinued (Pharmacist change per medication history (E-cancel not sent)) clonazePAM (KLONOPIN) 1 mg tablet Take 1 mg by mouth one time if needed for Anxiety. 07/02/202024 Discontinued (Pharmacist change per medication history (E-cancel not sent)) sertraline (ZOLOFT) 100 mg tablet Take 100 mg by mouth once daily. 2024 Discontinued (*IP Discontinued ) HYDROcodone-mel taminophen (5-325 mg/tablet)Indic ations:Acute pain,Pacemaker Take 1 Tablet by mouth every 4 hours if needed for Pain. Max acetaminophen dose: 4000 mg in 24 hrs. 10 Tablet 01/10/202024 Discontinued (Pharmacist change per medication history (E-cancel not sent)) Active Problems Problem Noted Date Diagnosed Date [...] Encounters Date Type Department Care Team Description 05/05/2025 6:37 AM CDT - 05/09/2025 10:15 AM CDT Hospital Encounter [facility] [address] [place] [address] Ajay Braun MD Major depressive disorder, recurrent episode, moderate (HC) (Primary Dx); Other problems related to housing and economic circumstances; Other problems related to social environment; Anxiety state, unspecified Discharge Disposition: Home Self Care 05/04/2025 8:08 PM CDT - 05/05/2025 5:59 AM CDT Emergency [facility] [address] [place] [address] Mark Perez MD Suicidal ideations (Primary Dx) Discharge Disposition: Home Self Care 05/04/2025 Travel 05/01/2025 Travel from Last 3 Months Immunizations Immunization Administration Dates Next Due Hepatitis B (Peds) [...] Never Smokeless Tobacco: Never Tobacco Cessation:Counseling Given: Not Answered Comments:Never used Alcohol Use Standard Drinks/Week Comments No 0 (1 standard drink = 0.6 oz pur e alcohol) PHQ-2 Answer Date Recorded PHQ-2 TOTAL SCORE 1 05/09/2025 Social Connections Answer Date Recorded Do you often feel lonely or isolated from those around you? 4 05/05/2025 Alcohol Use Answer Date Recorded How often do you have a drink containing alcohol ? 0 05/05/2025 How many drinks containing a lcohol do you have on a typical day when you are drinking? 0 05/05/2025 How often do you have five or more drinks on one occasion? 0 05/05/2025 Financial Resource Strain Answer Date R ecorded Difficulty of Paying Living Expenses 3 05/01/2024 Difficulty of Paying Living Expenses Not on file 05/01/2024 Food Insecurity Answer Date Recorded Do you worry your food will run out before you are able to buy more? 1 05/05/2025 Transportation Needs Answer Date Record ed Does lack of transportation keep you from medica l appointments? 1 05/05/2025 Does lack of transportation keep you from work, meetings or getting things that you need? 1 05/05/2025 Housing Stability Answer Date Recorded What is your housing situation today? 2 05/05/2025 Interpersonal Safety Answer Date Record ed Are you being hit, kicked, p ushed or yelled at (see row info)? No 05/05/2025 Interpersonal Safety Abuse 12 - 18 Not on file 05/05/2025 Interpersonal Safety Ambulatory Vulnerability No t on file 05/05/2025 Utilities Answer Date Recorded Do you have trouble paying f or utilities (for example, heat, electricity, water, phone)? 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 Not on file Not on file Obstetrics History Last Filed Vital Signs Vital Sign Reading Time Taken Comments Blood Pressure 94/60 05/09/2025 9:30 AM CDT Pulse 74 05/09/2025 9:30 AM CDT Temperature 36.7 C (98.1 F) 05/09/2025 9:30 AM CDT Respiratory Rate 18 05/09/2025 9:30 AM CDT Oxygen Saturation 99% 05/09/2025 9:30 AM CDT Inhaled Oxygen Concentration - - Weight 75.1 kg (165 lb 9.6 oz) 05/07/2025 7:00 A M CDT Height 182.9 cm (6') 05/05/2025 6:28 AM CDT Body Mass Index 22.46 05/05/2025 6:28 AM CDT Plan of Treatment Upcoming Encounters Date Type Department Care Team (Late st Contact Info) Description 07/16/2025 4:30 PM LICENSED NUCLEAR OPERATOR Office Visit [facility] [address] [place] [address] [address] [place] [phone] Khanh Mott MD [address] [place] [address] 09/03/2025 Cardiac Device [facility] [phone] Health Maintenance Due Date Last Done Comments HIV for age 15-65 1996 Hepatitis C screening for age 18-79 1999 Hepatitis B series for 19+ ( 2 of 3 - 3-dose series) 07/18/1999 06/20/1999 Pneumococcal series for age 6-49 (1 of 2 - PCV) 2000 HPV series for age 9-45 (1 - 3-dose SCDM series) 2008 COVID-19 vaccine series ( - season) 2025 Influenza Vaccine (#1) 2025 09/15/2008 Tetanus booster 04/30/2025 04/30/2015, 08/07/2005 BMI (ht and wt on same day) for age 18+ 10/27/2025 10/27/2024, 08/02/2023, 03/08/2018 Depression screening for age 12+ 05/09/2026 05/09/20 25 Lipids for age 35-44 05/06/2030 05/06/2025, 05/30/2003, 05/30/2003 RSV vaccine for adults or pr egnancy (1 - 1-dose 75+ series) 2056 Medical Devices Implanted Type Area Braid Cutter Device Identifier Shelf Expiration Date Model / Serial / Lot Stent Uret [id number] Contour - [id number] Implanted:Qty: 1 on 10/24/2020 by Gricelda Henning MD at [facility] Left: Ureter BS Urology [id number] 0 / / [id number] Stent Uret [id number] Contour - [id number] Implanted:Qty: 1 on 05/02/2024 by Dante Dennis MD at [facility] Left: Ureter BSC Urology 12/02/2025 [id number] 0 / / [id number] Stent Uret [id number] Contour - [id number] Implanted:Qty: 1 on 05/25/2024 by Dante Dennis MD at [facility] Left: Ureter [facility] 02/02/2027 [id number] / / [id number] Procedures Procedure Name Priority Date/Time Associated Diagnosis Comments HEMOGLOBIN A1C Early AM 05/06/2025 6:02 AM CDT LIPID PANEL Early AM 05/06/2025 6:02 AM CDT CBC WITH AUTO DIFFERENTIAL MICHAEL 05/05/2025 1:03 PM CDT CBC WITH AUTO DIFFERENTIAL MICHAEL 05/05/2025 1:03 PM CDT PHOSPHORUS MICHAEL 05/05/2025 1:03 PM CDT MAGNESIUM MICHAEL 05/05/2025 1:03 PM CDT COMP METABOLIC PANEL MICHAEL 05/05/2025 1:03 PM CDT DRUG SCREEN RAPID URINE INHOUSE Today 05/05/2025 8:57 AM CDT EKG 12 LEAD STAT 05/04/2025 8:38 PM CDT from Last 3 Months Results * HEMOGLOBIN A1C (05/06/2025 6:02 AM CDT) HEMOGLOBIN A1C SCREENING 5.0 <=6.4 % 05/06/2025 7:44 PM CDT [facility] Blood BLOOD SPECIMEN / Unknown Venipuncture / Unknown 05/06/2025 6:02 AM CDT 05/06/2025 6:17 AM CDT [facility] - 05/06/2025 7:44 PM CDT (<5.7%) Normal (5.7% to 6.4%) Indicates prediabetes (>=6.5%) Confirms diabetes Falsely low levels may be seen with: Recent Transfusion, Recent Significant Blood Loss, Hemolytic Diseases, or Falsely elevated levels may be seen with: Untreated Anemias, Splenectomy Ajay Braun MD CHEMISTRY Final Result [facility] [address] [place] [address], * (ABNORMAL) LIPID PANEL (05/06/2025 6:02 AM CDT) CHOLESTEROL,TOTAL 215(H) 100 - 199 mg/dL 05/06/2025 12:46 PM CDT [facility] Comment: Cholesterol, Total Reference Ranges Desirable <200 mg/dL Borderline 200-239 mg/dL High >=240 mg/dL TRIGLYCERIDES 82 <150 mg/dL 05/06/2025 12:46 PM CDT [facility] HDL CHOLESTEROL 45 >40 mg/dL 12:46 PM CDT [facility] NON-HDL CHOLESTEROL 170(H) <145 mg/dl 05/06/2025 12:46 PM CDT [facility] CHOL/HDL RATIO 4.78(H) <4.50 05/06/2025 12:46 PM CDT [facility] LDL CHOLESTEROL 154(H) <=130 mg/dL 05/06/2025 12:46 PM CDT [facility] VLDL CHOLESTEROL 16 <=30 mg/dL 05/06/2025 12:46 PM CDT [facility] PROVIDER ORDERED STATUS FASTING 05/06/2025 12:46 PM CDT [facility] Blood BLOOD SPECIMEN / Unknown Venipuncture / Unknown 05/06/2025 6:02 AM CDT 05/06/2025 6:17 AM CDT Ajay Braun MD CHEMISTRY Final Result [facility] [address] [place] [address], [facility] [address] [address] * CBC WITH AUTO DIFFERENTIAL (05/05/2025 1:03 PM CDT) WHITE BLOOD COUNT 5.7 4.5 - 11.0 thou/cu mm 05/05/2025 1:09 PM [facility] RED BLOOD COUNT 4.53 4.30 - 5.90 mil/cu mm 05/05/2025 1:09 PM [facility] HEMOGLOBIN 14.4 13.5 - 17.5 g/dL 05/05/2025 1:09 PM [facility] HEMATOCRIT 41.8 37.0 - 53.0 % 05/05/2025 1:09 PM [facility] MCV 92 80 - 100 fL 05/05/2025 1:09 PM [facility] MCH 31.8 26.0 - 34.0 pg 05/05/2025 1:09 PM [facility] MCHC 34.4 32.0 - 36.0 g/dL 05/05/2025 1:09 PM [facility] RDW 13.0 11.5 - 15.5 % 05/05/2025 1:09 PM [facility] PLATELET COUNT 229 140 - 440 thou/cu mm 05/05/2025 1:09 PM [facility] MPV 8.4 6.5 - 11.0 fL 05/05/2025 1:09 PM [facility] % NEUT 45.5 % 05/05/2025 1:09 PM [facility] % LYMPH 41.4 % 05/05/2025 1:09 PM [facility] % MONO 10.7 % 05/05/2025 1:09 PM [facility] % EOS 2.1 % 05/05/2025 1:09 PM [facility] % BASO 0.3 % 05/05/2025 1:09 PM [facility] ABSOLUTE NEUTROPHILS 2.6 1.7 - 7.0 thou/cu mm 05/05/2025 1:09 PM [facility] ABSOLUTE LYMPHOCYTES 2.4 0.9 - 2.9 thou/cu mm 05/05/2025 1:09 PM [facility] ABSOLUTE MONOCYTES 0.6 <0.9 thou/cu mm 05/05/2025 1:09 PM T [facility] ABSOLUTE EOSINOPHILS 0.1 <0.5 thou/cu mm 05/05/2025 1:09 PM T [facility] ABSOLUTE BASOPHILS 0.0 <0.3 thou/cu mm 05/05/2025 1:09 PM CDT [facility] Blood BLOOD SPECIMEN / Unknown Venipuncture / Unknown 05/05/2025 1:03 PM CDT 05/05/2025 1:06 PM CDT Romelia STEVENS HEMATOLOGY Final Result Performing Organization Address [facility]/ZIP Co de Phone Number [address] [phone] * PHOSPHORUS (05/05/2025 1:03 PM CDT) PHOSPHORUS 2.5 2.5 - 4.5 mg/dL 05/05/2025 1:28 PM CDT [facility] Blood BLOOD SPECIMEN / Unknown Venipuncture / Unknown 05/05/2025 1:03 PM CDT 05/05/2025 1:06 PM CDT Romelia STEVENS CHEMISTRY Final Result Performing Organization Address [facility]/ZIP Co de Phone Number [facility] [address] [place] [phone] * MAGNESIUM (05/05/2025 1:03 PM CDT) MAGNESIUM 1.9 1.6 - 2.6 mg/dL 05/05/2025 1:28 PM CDT [facility] Blood BLOOD SPECIMEN / Unknown Venipuncture / Unknown 05/05/2025 1:03 PM CDT 05/05/2025 1:06 PM CDT Romelia STEVENS CHEMISTRY Final Result Performing Organization Address City/[facility]/ZIP Co de Phone Number [facility] [address] [phone] * (ABNORMAL) COMP METABOLIC PANEL (05/05/2025 1:03 PM T) SODIUM 140 136 - 145 mmol/L 05/05/2025 1:28 PM [facility] POTASSIUM 4.1 3.5 - 5.1 mmol/L 05/05/2025 1:28 PM [facility] CHLORIDE 105 98 - 107 mmol/L 05/05/2025 1:28 PM [facility] CO2,TOTAL 23 22 - 29 mmol/L 05/05/2025 1:28 PM [facility] ANION GAP 12 5 - 18 05/05/2025 1:28 PM [facility] GLUCOSE 103(H) 70 - 99 mg/dL 05/05/2025 1:28 PM [facility] CALCIUM 9.2 8.8 - 10.4 mg/dL 05/05/2025 1:28 PM [facility] Comment: Reference ranges for this test were updated on 06/27/2024 to reflect our healthy population more accurately. Reference range changes are not retroactively applied to results, but previous results using the same methodology can be interpreted in the context of the new reference range. BUN 11 6 - 20 mg/dL 05/05/2025 1:28 PM [facility] CREATININE 1.03 0.70 - 1.20 mg/dL 05/05/2025 1:28 PM [facility] BUN/CREAT RATIO 11 10 - 20 1:28 PM [facility] eGFR >90 >90 mL/min/1.7 3m2 05/05/2025 1:28 PM [facility] Comment:As of 2021, eG FR is calculated by the CKD-EPI creatinine equation without race adjustment. eGFR can be influenced by muscle mass, exercise, and diet. The reported eGFR is an estimation only and is only applicable if the renal function is stable. ALBUMIN 4.1 4.0 - 4.9 g/dL 05/05/2025 1:28 PM [facility] PROTEIN,TOTAL 6.5 6.0 - 8.0 g/dL 05/05/2025 1:28 PM [facility] BILIRUBIN,TOTAL 0.6 0.0 - 1.2 mg/dL 05/05/2025 1:28 PM [facility] ALK PHOSPHATASE 48 40 - 129 IU/L 05/05/2025 1:28 PM [facility] ALT (SGPT) 11 10 - 50 IU/L 05/05/2025 1:28 PM [facility] AST (SGOT) 16 10 - 50 IU/L 05/05/2025 1:28 PM [facility] Blood BLOOD SPECIMEN / Unknown Venipuncture / Unknown 05/05/2025 1:03 PM CDT 05/05/2025 1:06 PM CDT us Romelia STEVENS CHEMISTRY Final Result Performing Organization Address City/State/[facility] Co de Phone Number [facility] [address] [phone] * (ABNORMAL) DRUG SCREEN RAPID URINE INHOUSE (05/05/2025 8:57 AM CDT) THC METABOLITES,GHAZALA L Not Detected Not Detected 05/05/2025 9:45 AM [facility] PCP,QUAL Not Detected Not Detected 05/05/2025 9:45 AM [facility] COCAINE,QUAL Not Detected Not Detected 05/05/20 9:45 AM [facility] METHAMPHETAMINE , QUALITATIVE Not Detected Not Detected 05/05/2025 9:45 AM [facility] OPIATES,QUAL Not Detected Not Detected 05/05/20 9:45 AM [facility] AMPHETAMINE, QUALITATIVE Not Detected Not Detected 05/05/2025 9:45 AM [facility] BENZODIAZEPINES ,QUAL Not Detected Not Detected 05/05/2025 9:45 AM [facility] TRICYCLICS,QUAL Non-negative , consider further testing if indicated(A) Not Detected 05/05/2025 9:45 AM [facility] METHADONE, QUALITATIVE Not Detected Not Detected 05/05/2025 9:45 AM CDT [facility] BARBITURATES,QU AL Not Detected Not Detected 05/05/2025 9:45 AM CDT [facility] OXYCODONE, QUALITATIVE Not Detected Not Detected 05/05/2025 9:45 AM CDT [facility] BUPRENORPHINE, QUALITATIVE Not Detected Not Detected 05/05/2025 9:45 AM CDT [facility] Urine URINE SPECIMEN / Unknown Non-Blood / Unknown 05/05/2025 8:57 AM CDT 05/05/2025 9:17 AM CDT Narrative [facility] - 05/05/2025 9:45 AM CDT Please Note: This is a screening test only, all results are unconfirmed and should be used for medical purposes only. Unconfirmed results must not be used for non-medical purposes (e.g., employment testing, legal testing). Suggest analyte specific confirmation for all non-negative results. Specimens will be held for 24 hours if additional testing is needed. The following threshold concentrations are used for this analysis: Drug Screening Threshold Buprenorphine 10 ng/mL PCP 25 ng/mL THC Metabolites 50 ng/mL *Opiates 100 ng/mL Oxycodone 100 ng/mL Cocaine 150 ng/mL Benzodiazepines 150 ng/mL Methadone 200 ng/mL Barbiturates 200 ng/mL Tricyclic Antidepressants 300 ng/mL Amphetamines 500 ng/mL Methamphetamines 500 ng/mL *Includes related compounds: Codeine 50 ng/mL Heroin 100 ng/mL Morphine 100 ng/mL Hydrocodone 400 ng/mL Hydromorphone 800 ng/mL Venlafaxine (Effexor) is a known cross reactant in the PCP assay. If clinically indicated, order PCP confirmation. us Ajay Braun MD URINE Final Result [facility] [address] [place] [address] * EKG 12 LEAD (05/04/2025 8:38 PM CDT) Interpretation Atrial-paced rhythm Abnormal ECG When compared with ECG of 02-May-2024 13:07, Electronic atrial pacemaker has replaced Sinus rhythm BEYOND NOW Ventricular Rate 70 BPM BEYOND NOW Atrial Rate 70 BPM BEYOND NOW P-R Interval 180 ms BEYOND NOW QRS Duration 102 ms BEYOND NOW QT 414 ms BEYOND NOW QTc 447 ms BEYOND NOW P [place] degrees BEYOND NOW R [place] 70 degrees BEYOND NOW T [place] 61 degrees BEYOND NOW 05/04/2025 8:38 PM CDT 05/05/2025 6:39 AM CDT us Mark Perez MD EKG ORD Final Result BEYOND NOW [place], [place] from Last 3 Months Insurance [employer] OF NON-e994-ITS [employer] NON-e994-ITS Advance Directives * Full Code (Latest Code Status on File) Date Activated Date Inactivated Comments 05/05/2025 6:42 AM 05/09/2025 12:26 PM Question Answer Comments Code Status Discussion: Other * Full Code Date Activated Date Inactivated Comments 05/25/2024 9:32 AM 05/25/2024 8:25 PM Question Answer Comments Code Status Discussion: Not Discussed * Full Code Date Activated Date Inactivated Comments 05/02/2024 11:00 [...] Answer Comments Code Status Discussion: Not Discussed Care Teams Cpa Tax Relationship Specialty Start Date End Date Ben Koch MD [address] [place] [id number] PCP - General Internal Medicine 03/09/18
--- NOTE | 2025-05-27 14:10 | CRLHL7_ITS ---
For Patients: As a result of the Century Cures Act, medical imaging exams and procedure reports are released immediately into your electronic medical record. You may view this report before your referring provider. If you have questions, please contact your health care provider. INDICATION: Fall. COMPARISON: 09/01/2018. TECHNIQUE: Noncontrast CT of the head. FINDINGS: Normal brain parenchymal morphology. No acute intracranial hemorrhage, acute infarct, focal edema, mass effect, or fracture. No midline shift. No abnormal ventricular dilatation. Normal calvarium and skull base. Visualized paranasal sinuses mastoid air cells are clear. Normal orbits bilaterally. IMPRESSION: 1. No acute intracranial abnormality. Please note that all CT scans at this facility use dose modulation, iterative reconstruction, and/or weight-based dosing when appropriate to reduce radiation dose to as low as reasonably achievable. Dictated by Pipe Rivas MD @ 05/27/2025 2:26:48 PM (Electronically Signed)
--- NOTE | 2025-05-27 14:39 | ED.GENADULT ---
HPI - General Adult General Date Seen: 05/27/25 Chief complaint: Head Injury/Pain Stated complaint: Weakness Time Seen by Provider: 05/27/25 14:10 Source: patient Mode of arrival: EMS Limitations: no limitations History of Present Illness HPI narrative: Patient is a 44-year-old male presenting to the emergency department via ambulance for an episode of falling and losing consciousness. He states for the past few weeks he has been having issues with lightheadedness he has had multiple falls. States today is 1st time he has loss consciousness. He does believe he hit his head against his pants. He is unsure how long he was unconscious for. He has been having issues with low blood pressure at home. States he checks his blood pressure routinely and he has checked it few times over the past few days were it was in the 60s systolic. He has not had issues with low blood pressure before. Does have a pacemaker for AFib placed a few months ago. Was recently hospitalized for mental health issues couple weeks ago. Denies fevers, chills. Does state he is having some mild chest pains and intermittent shortness of breath. Is also complaining of bilateral leg pain. Denies any alcohol use. States he is eating and drinking enough. Is having some mild abdominal discomfort also. Related Data Home Medications ?Medication ?Instructions ?Recorded ?Confirmed balsalazide 750 mg capsule mg PO 11/06/22 05/24/25 infliximab 100 mg intravenous IV 11/06/22 05/24/25 solution (Remicade) flecainide 50 mg tablet 50 mg PO Q12H 12/27/23 05/24/25 hydroxyzine pamoate 50 mg capsule 50 mg PO Q4H PRN anxiety 05/16/25 05/27/25 sotalol 80 mg tablet 80 mg PO BID 05/16/25 05/27/25 trazodone 50 mg tablet 50 mg PO QPM 05/16/25 05/27/25 Previous Rx's ?Medication ?Instructions ?Recorded gabapentin 300 mg capsule 300 mg PO BID PRN pain #30 caps 03/12/23 sertraline 100 mg tablet (Zoloft) 100 mg PO QDAY #90 tabs 05/01/25 clonazepam 1 mg tablet 1 mg PO QDAY PRN anxiety #20 tabs 05/21/25 Allergies Allergy/AdvReac Type Severity Reaction Status Date / Time venlafaxine Allergy Unknown Unknown Verified 05/24/25 08:17 Review of Systems Status of ROS: Reports: 10 or more systems reviewed and unremarkable except as noted in History and below [facility] Medical History Back pain ?M54.9 - Dorsalgia, unspecified (ICD-10) UTI (urinary tract infection) ?N39.0 - Urinary tract infection, site not specified (ICD-10) Anxiety ?F41.9 - Anxiety disorder, unspecified (ICD-10) Inflammatory bowel disease ?K52.9 - Noninfective gastroenteritis and colitis, unspecified (ICD-10) Social History Smoking Status: Never smoker Do you use any of these nicotine containing products: None How often do you have a drink containing alcohol: never How often do you have six or more drinks on one occasion: Never AUDIT-C Alcohol total score: 0 Non-prescribed substance use: denies use service: No Exam Narrative: Exam Narrative: Const: Well-nourished, Well-developed, in mild distress Eyes: PERRL, no conjunctival injection, and symmetrical lids HENT: Atraumatic external nose and ears. Moist mucous membranes. Neck: Symmetric, trachea midline, No thyromegaly. CVS: RRR, No murmurs or gallops. Peripheral pulses 2+ and equal in all extremities RESP: Unlabored respiratory effort. Clear to auscultation bilaterally. GI: Nontender/Nondistended, No rebound or guarding. MSK:Extremities w/o deformity, Normal Active ROM Skin: Warm, Dry. No rashes or lesions. Neuro: Normal Muscle tone, No focal neurological deficits. Psych: Awake, Alert, & Oriented x3. Appropriate mood and affect. Const: Vital Signs, click to edit/add: Vital Signs - 24 hr 05/27/25 14:03 05/27/25 14:03 05/27/25 14:05 Temperature 97.7 F Pulse Rate 73 Pulse Rate [Pulse Oximeter] 70 Pulse Rate [orthos tatic lying] Pulse Rate [orthos tatic sitting] Pulse Rate [orthos tatic standing Pul se Oximeter] Respiratory Rate 16 15 20 Blood Pressure 131/87 Blood Pressure [Le ft Upper Arm] 131/87 Blood Pressure [or thostatic lying] Blood Pressure [or thostatic sitting] Blood Pressure [or thostatic standing ] Pulse Oximetry 100 98 Oxygen Delivery Me od Room Air 05/27/25 14:07 05/27/25 14:11 05/27/25 14:26 Temperature Pulse Rate 70 69 Pulse Rate [Pulse Oximeter] Pulse Rate [orthos tatic lying] 70 Pulse Rate [orthos tatic sitting] 73 Pulse Rate [orthos tatic standing Pul se Oximeter] Respiratory Rate 18 21 Blood Pressure 86/47 L Blood Pressure [Le ft Upper Arm] Blood Pressure [or thostatic lying] 131/87 Blood Pressure [or thostatic sitting] 86/47 L Blood Pressure [or thostatic standing ] Pulse Oximetry 100 [facility] 05/27/25 14:30 05/27/25 14:45 05/27/25 14:46 Temperature Pulse Rate 70 70 71 Pulse Rate [Pulse Oximeter] Pulse Rate [orthos tatic lying] Pulse Rate [orthos tatic sitting] Pulse Rate [orthos tatic standing Pul se Oximeter] Respiratory Rate 17 29 H 26 H Blood Pressure 148/79 H Blood Pressure [Le ft Upper Arm] Blood Pressure [or thostatic lying] Blood Pressure [or thostatic sitting] Blood Pressure [or thostatic standing ] Pulse Oximetry 100 100 [facility] 05/27/25 16:03 Temperature Pulse Rate Pulse Rate [Pulse Oximeter] Pulse Rate [orthos tatic lying] 70 Pulse Rate [orthos tatic sitting] 70 Pulse Rate [orthos tatic standing Pul se Oximeter] 70 Respiratory Rate Blood Pressure Blood Pressure [Le ft Upper Arm] Blood Pressure [or thostatic lying] 129/83 Blood Pressure [or thostatic sitting] 94/72 Blood Pressure [or thostatic standing ] 86/56 L Pulse Oximetry Oxygen Delivery Me od Course Vital Signs Vital signs: Initial Vital Signs Temperature 97.7 F 05/27/25 14:03 Temperature Source Temporal Artery Scan 05/27/25 14:03 Pulse Rate 70 05/27/25 14:03 Respiratory Rate 16 05/27/25 14:03 Blood Pressure 131/87 05/27/25 14:03 Blood Pressure Mean 101 05/27/25 14:03 Blood Pressure Position Supine 05/27/25 14:03 Pulse Oximetry 100 05/27/25 14:03 Oxygen Delivery Method Room Air 05/27/25 14:03 Vital Signs Temperature 97.7 F 05/27/25 14:03 Pulse Rate 70 05/27/25 14:03 Respiratory Rate 16 05/27/25 14:03 Blood Pressure 131/87 05/27/25 14:03 Pulse Oximetry 100 05/27/25 14:03 Oxygen Delivery Method Room Air 05/27/25 14:03 Temperature 97.7 F 05/27/25 14:03 Pulse Rate 70 05/27/25 16:03 Respiratory Rate 26 H 05/27/25 14:46 Blood Pressure 129/83 05/27/25 16:03 Pulse Oximetry 100 05/27/25 14:46 Oxygen Delivery Method Room Air 05/27/25 14:46 Medications Administered Medications: Discontinued Medications Generic Name Dose Route Start Last Admin Trade Name Freq PRN Reason Stop Dose Admin Lactated Ringer's 1,000 mls @ 1,000 mls/hr 05/27/25 14:37 05/27/25 16:01 Lactated Ringers 1000 Ml IV 05/27/25 15:36 Infused .Q1H ONE Infusion Medical Decision Making MDM Narrative Medical decision making narrative: Patient is a 44-year-old male presenting to the emergency department after a fall with loss of consciousness. Unsure of loss consciousness was from his lightheadedness or from hitting his head. Will do a CT scan of his head immediately to the intra cranial abnormalities. When he was sat up his blood pressure dropped from 120 systolic to 86 systolic. Will recheck orthostatic blood pressures after fluids. Will also check viral swabs, magnesium, troponin, CBC, CMP, D-dimer, ET 8, EKG. Is having some mild epigastric discomfort so will order a lipase also. Lab work returned showing no acute concerning abnormalities. EKG interpreted by myself shows no acute concerning abnormalities. It does show his atrial paced rhythm. CT scan of his head reviewed by myself and the radiologist shows no acute concerning abnormalities. After L fluids he continues to have orthostatic hypotension. At this time I am really unsure why he is having this orthostatic hypertension and continues to have the tingling sensation in his legs. I spoke to the hospitalist in [place] about possibly admitting him here but due to his complexity it was recommended to transfer him. I did speak to Dr. Rosenthal of [facility] who accepted him for transfer. Lab Data Labs: Lab Results 05/27/25 05/27/25 Range/Units 14:48 14:57 WBC 6.02 (4.50-11.00) K/uL RBC 4.40 (4.30-5.90) m/uL Hgb 13.6 (13.5-17.5) gm/dL Hct 38.4 (37.0-53.0) % MCV 87 (80-100) fL MCH 31 (26-34) pg MCHC 35 (32-36) gm/dL RDW Coeff of Larry 12.1 (11.5-15.5) % Plt Count 250 (140-440) K/uL Neut % (Auto) 47.2 (42.0-72.0) % Lymph % (Auto) 35.9 (20-44) % [place] % (Auto) 10.6 (0.0-11.0) % Eos % (Auto) 5.3 (0.0-7.0) % Baso % (Auto) 0.5 (0.0-3.0) % Neut # (Auto) 2.84 (1.7-7.0) K/uL Lymph # (Auto) 2.16 (0.90-2.90) K/uL [place] # (Auto) 0.60 (0.00-0.90) K/UL Eos # (Auto) 0.32 (0.00-0.50) K/uL Baso # (Auto) 0.03 (0.00-0.30) K/uL Abs Immat Gran (auto) 0.03 (0.00-0.30) K/uL Imm/Tot Granulo (auto) 0.5 % D-Dimer Quant (PE/DVT) < 0.27 (0.00-0.50) ug/ml Sodium 137 (135-149) mmol/L Potassium 3.9 (3.6-5.1) mmol/L Chloride 106 (96-114) mmol/L Carbon Dioxide 26 (20-32) mmol/L Anion Gap 5 L (7-15) mEq/L BUN 15 (5-24) mg/dL Creatinine 0.8 (0.5-1.5) mg/dL Estimated Creat Clear 117.63 Estimated GFR 113 ml/min Glucose 85 (60-115) mg/dL Calcium 8.9 (8.4-10.6) mg/dL Magnesium 1.7 (1.5-2.6) mg/dL Total Bilirubin 0.8 (0.1-1.5) mg/dL AST 23 (12-35) U/L ALT 14 (4-50) U/L Alkaline Phosphatase 50 (40-150) U/L Troponin I < 0.01 (0.01-0.04) ng/mL Total Protein 6.5 (6.0-8.3) g/dL Albumin 3.9 (3.3-5.0) g/dL Lipase 65 (23-300) U/L Ethyl Alcohol < 0.01 (0.01-0.03) % SARS-CoV-2 (PCR) Negative SARS-CoV-2 (Negative) Influenza Type A (PCR) Negative PCR FLU A (Negative) Influenza Type B (PCR) Negative PCR FLU B (Negative) RSV (PCR) Negative PCR RSV (Negative) Imaging Data CT scan abdomen and pelvis: Attestation: I have reviewed the pertinent imaging results. Radiologist's impression: 1. No acute intracranial abnormality. Please note that all CT scans at this facility use dose modulation, iterative reconstruction, and/or weight-based dosing when appropriate to reduce radiation dose to as low as reasonably achievable. Dictated by Pipe Rivas MD @ 05/27/2025 2:26:48 PM ECG Data Attestation: I personally reviewed and interpreted this ECG as follows: Interpretation: Atrial paced rhythm with rate of 70 beats per minute, normal intervals, normal axis, no ST or T-wave abnormalities. Previous EKG on file does not have the pacemaker Discharge Plan Discharge Prescriptions: No Action balsalazide 750 mg capsule PO infliximab [Remicade] 100 mg recon soln IV flecainide 50 mg tablet 50 mg PO Q12H Rx Instructions: One in AM One in PM trazodone 50 mg tablet 50 mg PO QPM sotalol 80 mg tablet 80 mg PO BID hydroxyzine pamoate 50 mg capsule 50 mg PO Q4H PRN (Reason: anxiety) gabapentin 300 mg capsule 300 mg PO BID PRN (Reason: pain) Qty: 30 0RF sertraline [Zoloft] 100 mg tablet 100 mg PO QDAY Qty: 90 0RF Rx Instructions: NEEDS APPT PRIOR TO FURTHER REFILLS clonazepam 1 mg tablet 1 mg PO QDAY PRN (Reason: anxiety) Qty: 20 0RF Follow Up/Referrals: Ben Koch MD [Primary Care Provider, Internal Medicine]
--- OUTSIDE RECORDS SUMMARY | 2025-05-27 14:40 | XMS_ITS | CCD ---
Author Name Interface, [id number] lity Address [address] [place] [address] [address] [address] Organization [facility] Address [address] [facility] [address] [address] Care Team Providers Care Instructor Product Inspection Name Role Phone Alex Gallagher Unavailable Unavailable Allergies and Adverse Reactions Medication/Group Name Reaction Severity Date Effexor 02/25/2021 Pollen (substance) Reason for Visit DIRECTOR PERIOPERATIVE - DIRECTOR PERIOPERATIVE 158 HEMOCHOMATOSIS - CHERY WALTER MD Medications Date Name Route Dose Frequency Instructions Start Date End Date Status Fill Status Indication 02/25 Mesalamine Suppositor y qhs active 02/25 Sertraline Oral daily active 02/25 Cholecalci ferol Oral 2.0 daily active 02/25 Balsalazid e Oral bid 5 in the am, 4 in the pm active Problems Diagnosis Status Date of Diagnosis Resolution Date Ulcerative colitis Active 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
--- OUTSIDE RECORDS SUMMARY | 2025-05-27 14:40 | XMS_ITS ---
Author Name Interface, [id number] lity Address [address] [place] [address] Oncology Address [address] [place] [id number] Allergies and Adverse Reactions Plan Reason for Visit Encounters Medications Problems Vital Signs
--- OUTSIDE RECORDS SUMMARY | 2025-05-27 14:40 | XMS_ITS | CCD ---
Author Name Interface, [id number] lity Address [address] [place] [address] [facility] Address [facility] [address] [place] [address] Care Team Providers Care Building Carpenter Name Role Phone Alex Gallagher Unavailable Unavailable Allergies and Adverse Reactions Reason for Visit Medications Problems Social History
--- OUTSIDE RECORDS SUMMARY | 2025-05-27 14:40 | XMS_ITS ---
Author Name Interface, [id number] lity Address [address] [place] [address] Oncology Address [address] [place] [id number] Allergies and Adverse Reactions Plan Reason for Visit Encounters Medications Problems Vital Signs
[2025-05-27] MEDS: LACTATED RINGERS 1000 ML 1,000 ML IV (14:45)
[2025-05-27 15:03] LABS: Hematocrit* 38.4 % (37.0-53.0); Hemoglobin* 13.6 gm/dL (13.5-17.5); Immature Granulocytes Abs Auto 0.03 K/uL (0.00-0.30); Immature Granulocytes Pct Auto 0.5 %; Lymphocytes Absolute Auto 2.16 K/uL (0.90-2.90); Mean Corpuscular HGB Conc 35 gm/dL (32-36); Mean Corpuscular Hemoglobin 31 pg (26-34); Mean Corpuscular Volume 87 fL (80-100); RDW Coefficient of Variation % 12.1 % (11.5-15.5); Red Blood Count* 4.40 m/uL (4.30-5.90); White Blood Count* 6.02 K/uL (4.50-11.00)
[2025-05-27 15:13] LABS: Slide Review Reflex No
[2025-05-27 15:16] LABS: Albumin* 3.9 g/dL (3.3-5.0); Chloride* 106 mmol/L (96-114); Potassium* 3.9 mmol/L (3.6-5.1); Sodium* 137 mmol/L (135-149)
[2025-05-27 15:19] LABS: Alanine Aminotransferase* 14 U/L (4-50); Alkaline Phosphatase* 50 U/L (40-150); Anion Gap 5 mEq/L (7-15); Aspartate Amino Transferase* 23 U/L (12-35); Bilirubin Total* 0.8 mg/dL (0.1-1.5); Blood Urea Nitrogen* 15 mg/dL (5-24); Calcium* 8.9 mg/dL (8.4-10.6); Carbon Dioxide* 26 mmol/L (20-32); Creatinine* 0.8 mg/dL (0.5-1.5); Est. Creatinine Clearance* 117.63; Estimated Glomerular Filt Rate 113 ml/min; Glucose* 85 mg/dL (60-115); Total Protein* 6.5 g/dL (6.0-8.3)
[2025-05-27 15:22] LABS: Ethanol* < 0.01 % (0.01-0.03)
[2025-05-27 15:30] LABS: PCR FLU A Negative PCR FLU A (Negative); PCR FLU B Negative PCR FLU B (Negative); PCR RSV Negative PCR RSV (Negative); SARS PCR* Negative SARS-CoV-2 (Negative)
[2025-05-27 15:39] LABS: D Dimer Quantitative* < 0.27 ug/ml (0.00-0.50)
[2025-05-27] MEDS: LACTATED RINGERS 1000 ML 1,000 ML 125 ML IV (17:08)
== END 2025-05-27 18:33 | disposition short-term general hospital (02) ==
LOC: ED 14:37
PROVIDERS: Emergency Provider Student in an Organized Health Care Education/Training Program; PCP Internal Medicine
DX: I95.1 Orthostatic hypotension (principal); W18.00XA Striking against unspecified object with subsequent fall, initial encounter; R42 Dizziness and giddiness; S09.90XA Unspecified injury of head, initial encounter
CPT/HCPCS: 36415; 70450; 80053; 82077; 83690; 83735; 84484; 85025; 85379; 87631; 93005; 99285; J7120

== ENCOUNTER 2025-05-27 18:25 | Outpatient (CLI) | payer BC, SELFPAY | END 2025-05-27 18:26 | disposition home or self-care (01) | LOC: AMB 05-29 16:36 | PROVIDERS: PCP Internal Medicine; Visit Provider Emergency Medicine Emergency Medical Services | DX: I95.1 Orthostatic hypotension (principal) | CPT/HCPCS: A0425; A0427 ==

== ENCOUNTER 2025-08-14 09:19 | Outpatient (CLI) | payer BC, SELFPAY | END 2025-08-14 09:20 | disposition home or self-care (01) | PROVIDERS: PCP Internal Medicine; Visit Provider Internal Medicine | DX: I95.1 Orthostatic hypotension (principal) | CPT/HCPCS: 80053; 84443 ==